=== PATIENT | female | born 1965 | race Caucasian/White ===

== ENCOUNTER 2019-11-30 11:52 | Outpatient (CLI) | payer MEDICARE, SELFPAY ==
--- NOTE | ~2019-11-30 | XR_ITS ---
EXAMINATION:XR_CERV2-3V_CR DATE: 11/30/2019 12:23 INDICATION: Neck pain TECHNIQUE: AP, lateral, lateral swimmers and odontoid views of the cervical spine are provided. COMPARISON: None FINDINGS: Alignment is normal. The odontoid is intact. No fracture is identified. The vertebral body heights are maintained. There is mild loss of intervertebral disc space height throughout the cervica l spine. Small degenerative osteophytes project from the anterior endplates of multiple vertebral bod ies. Moderate facet and uncovertebral joint osteoarthritis is noted at C5-6. Prevertebral soft tissue s are normal. IMPRESSION: 1. Mild cervical spondylosis without acute findings. Reviewed, dictated and finalized at location A.
== END 2019-11-30 11:53 | disposition home or self-care (01) ==
PROVIDERS: PCP Emergency Medicine; Visit Provider Physician Assistant
DX: M47.892 Other spondylosis, cervical region (principal)
CPT/HCPCS: 72040

== ENCOUNTER 2020-02-19 10:25 | Outpatient (CLI) | payer MEDICARE, SELFPAY ==
--- NOTE | ~2020-02-19 | US_ITS ---
EXAMINATION: US retroperitoneal duplex ltd EXAM DATE: 02/19/2020 11:49 INDICATION: Stage III chronic kidney disease. TECHNIQUE: Multiple grayscale and Doppler images of the kidneys and renal arteries were obtained. T here is no prior study for comparison. FINDINGS: The aorta peak systolic velocity is 264 cm/s. The right renal artery peak systolic velocity is 88 cm/ s in the proximal segment, 96 cm/s in the mid segment, and 71 cm/s in the distal segment. The left re nal artery peak systolic velocity is 45 cm/s in the proximal segment, 70 cm/s in the mid segment, and 82 cm/s in the distal segment. No hydronephrosis. IMPRESSION: 1. Renal artery Doppler velocities within normal limits. Reviewed, dictated and finalized at location B.
== END 2020-02-19 10:26 | disposition home or self-care (01) ==
LOC: ANHIMG 10:27
PROVIDERS: PCP Emergency Medicine; Visit Provider Internal Medicine Nephrology
DX: N18.3 Chronic kidney disease, stage 3 (moderate) (principal); N26.1 Atrophy of kidney (terminal)
CPT/HCPCS: 93976

== ENCOUNTER 2020-05-10 14:11 | Outpatient (CLI) | payer MEDICARE, SELFPAY ==
--- NOTE | ~2020-05-10 | CT_ITS ---
EXAMINATION:CT lung screening DATE: 05/10/2020 14:31 INDICATION: Personal history of tobacco dependence. Current smoker with 80 pack year history. TECHNIQUE: Computed tomography (CT) of the chest was performed without intravenous contrast. Automate d exposure control and iterative reconstruction technique were employed. The dose-length product (DLP ) was 347.65 mGy-cm. COMPARISON: Chest CT 04/13/2019 FINDINGS: There is mild emphysema. There is a 3 mm nodule at left major fissure without change. No pl eural effusion. There is an aberrant right subclavian artery. The heart size is normal. There are cor onary artery calcifications. No pericardial effusion. There is mild thoracic spondylosis. IMPRESSION: 1. Lung-RADS category 2: Benign appearance or behavior. Continue annual screening with noncontrast lo w-dose chest CT in 12 months. Reviewed, dictated and finalized at location A. [place] SUPPORT SPECIALIST IMPRESSION: 1. Lung-RADS category 2: Benign appearance or behavior. Continue annual screeni ng with noncontrast low-dose chest CT in 12 months.
== END 2020-05-10 14:12 | disposition home or self-care (01) ==
PROVIDERS: PCP Emergency Medicine; Visit Provider Nurse Practitioner Family
DX: Z12.2 Encounter for screening for malignant neoplasm of respiratory organs (principal); Z87.891 Personal history of nicotine dependence
CPT/HCPCS: G0297

== ENCOUNTER 2020-12-09 12:53 | Outpatient (CLI) | payer MEDICARE, SELFPAY ==
--- NOTE | ~2020-12-09 | XR_ITS ---
EXAMINATION: XR shoulder RT min 2V DATE: 12/09/2020 13:32 INDICATION: Right shoulder pain. TECHNIQUE: 4 views of right shoulder were obtained. COMPARISON: None. FINDINGS: Bone alignment is normal. No fracture. Joint spaces are well maintained. IMPRESSION: 1. Normal right shoulder. Reviewed, dictated and finalized at location A. IMPRESSION: 1. Normal right shoulder.
== END 2020-12-09 12:54 | disposition home or self-care (01) ==
PROVIDERS: PCP Emergency Medicine; Visit Provider Orthopaedic Surgery Sports Medicine
DX: M25.511 Pain in right shoulder (principal)
CPT/HCPCS: 73030

== ENCOUNTER 2021-01-02 15:49 | Outpatient (CLI) | payer MEDICARE, SELFPAY ==
--- NOTE | ~2021-01-02 | MR_ITS ---
EXAMINATION: MR shoulder RT wo con DATE: 01/02/2021 16:28 INDICATION: Right shoulder pain. TECHNIQUE: Magnetic resonance imaging (MRI) of the right shoulder was performed without intravenous c ontrast. Sequences included axial PD-weighted FS FSE, coronal oblique PD-weighted FS FSE and T2-weigh ronnie FS FSE, and sagittal oblique T2-weighted FS FSE and T1-weighted FSE. COMPARISON: Right shoulder radiographs 12/09/20 FINDINGS: Coracoacromial arch: The acromion undersurface is curved in morphology (type II). There is mild acromioclavicular joint os teoarthritis. There is moderate subacromial/subdeltoid bursitis. Rotator cuff: There is a full-thickness tear of anterior supraspinatus tendon and articular-sided partial-thickness tear of posterior supraspinatus tendon and infraspinatus tendon. The full-thickness tear measures 4 mm anterior to posterior by 2.0 cm proximal to distal. The partial-thickness tear measures 1.9 cm ant erior to posterior, 2.0 cm proximal to distal, and up to 80% tendon thickness. Teres minor tendon is normal. There is mild subscapularis tendinopathy. There is no asymmetric fatty atrophy of the rotator cuff muscle bellies. Biceps tendon and glenoid labrum: There is a complete tear of proximal biceps tendon. There is degeneration of glenoid labrum without w ell-defined tear. Fluid: There is no glenohumeral joint effusion. Bones/cartilage: There is deep partial thickness cartilage loss of central glenoid. There is partial-thickness cartila ge loss of humeral head. IMPRESSION: 1. Full-thickness rotator cuff tear. 2. Complete tear of proximal biceps tendon. 3. Moderate glenohumeral joint chondrosis. 4. Mild acromioclavicular joint osteoarthritis. 5. Moderate subacromial/subdeltoid bursitis. Reviewed, dictated and finalized at location A.
== END 2021-01-02 15:50 | disposition home or self-care (01) ==
PROVIDERS: PCP Emergency Medicine; Visit Provider Orthopaedic Surgery Sports Medicine
DX: M19.011 Primary osteoarthritis, right shoulder (principal); M75.51 Bursitis of right shoulder; S46.211A Strain of muscle, fascia and tendon of other parts of biceps, right arm, initial encounter; X58.XXXA Exposure to other specified factors, initial encounter; M75.101 Unspecified rotator cuff tear or rupture of right shoulder, not specified as traumatic
CPT/HCPCS: 73221

== ENCOUNTER 2021-01-15 09:56 | Outpatient (CLI) | payer MEDICARE, SELFPAY ==
--- NOTE | ~2021-01-15 | MR_ITS ---
EXAMINATION: MR cervical spine wo con EXAM DATE: 01/15/2021 10:47 INDICATION: Cervicalgia . TECHNIQUE: Multi-sequential, multiplanar MR images of the cervical spine were obtained without contra st. Axial T2, axial T2 MERGE sequence. Sagittal T1, T2, T2 fat saturation images also obtained. Th ere is no prior study for comparison. FINDINGS: The vertebral bodies are aligned in the AP dimension. Vertebral body and disc heights are well-maintained. There are no suspicious marrow signal abnormalities. The spinal cord signal intensit y and intrinsic morphology is normal. Cervicomedullary junction is normal in appearance. Paraspinal s oft tissue is unremarkable. Level by level evaluation: C2-C3: Disc does not extend beyond the endplate margin. Uncovertebral joint arthropathy: None. Facet joint arthropathy: Mild bilateral. Neural foraminal stenosis: No stenosis. Central canal stenosis: No stenosis. C3-C4: There is a mild diffuse disc bulge. Uncovertebral joint arthropathy: Mild bilateral. Facet joint arthropathy: Mild to moderate bilateral. Neural foraminal stenosis: Mild to moderate right, mild left. Central canal stenosis: No stenosis. C4-C5: Disc does not extend beyond the endplate margin. Uncovertebral joint arthropathy: Minimal bilateral. Facet joint arthropathy: Mild to moderate left, mild right. Neural foraminal stenosis: No stenosis. Central canal stenosis: No stenosis. C5-C6: Disc does not extend beyond the endplate margin. Uncovertebral joint arthropathy: Minimal bilateral. Facet joint arthropathy: Mild bilateral. Neural foraminal stenosis: No stenosis. Central canal stenosis: No stenosis. C6-C7: There is a mild diffuse disc bulge. Uncovertebral joint arthropathy: Mild to moderate bilateral. Facet joint arthropathy: Minimal bilateral. Neural foraminal stenosis: No stenosis. Central canal stenosis: Minimal. C7-T1: Disc does not extend beyond the endplate margin. Uncovertebral joint arthropathy: Mild bilateral. Facet joint arthropathy: Mild bilateral. Neural foraminal stenosis: No stenosis. Central canal stenosis: No stenosis. IMPRESSION: 1. Mild cervical spondylosis. Reviewed, dictated and finalized at location A.
== END 2021-01-15 09:57 | disposition home or self-care (01) ==
PROVIDERS: PCP Emergency Medicine; Visit Provider Orthopaedic Surgery Sports Medicine
DX: M54.2 Cervicalgia (principal); M47.892 Other spondylosis, cervical region
CPT/HCPCS: 72141

== ENCOUNTER 2021-02-18 12:57 | Outpatient (CLI) | payer MEDICARE, SELFPAY ==
--- NOTE | ~2021-02-18 | XR_ITS ---
EXAMINATION: XR shoulder LT min 2V DATE: 02/18/2021 13:32 INDICATION: Left shoulder pain TECHNIQUE: AP internally and externally rotated, AP oblique externally rotated and transscapular Y vi ews of the left shoulder were obtained. COMPARISON: None FINDINGS: Normal alignment. No fracture. Glenohumeral joint is normal. Acromioclavicular joint is normal. Soft tissues are unremarkable. Visualized portions of the lungs are clear. IMPRESSION: Negative left shoulder radiographs. Reviewed, dictated and finalized at location A.
== END 2021-02-18 12:58 | disposition home or self-care (01) ==
PROVIDERS: PCP Emergency Medicine; Visit Provider Orthopaedic Surgery Sports Medicine
DX: M25.512 Pain in left shoulder (principal)
CPT/HCPCS: 73030

== ENCOUNTER 2021-02-28 13:38 | Outpatient (CLI) | payer MEDICARE, SELFPAY ==
--- NOTE | ~2021-02-28 | MR_ITS ---
EXAMINATION: MR shoulder LT wo con DATE: 02/28/2021 14:44 INDICATION: Left shoulder pain TECHNIQUE: Magnetic resonance imaging (MRI) of the left shoulder was performed without intravenous co ntrast. Sequences included axial PD-weighted FS FSE, coronal oblique PD-weighted FS FSE, coronal obli que T2-weighted FS FSE, sagittal PD-weighted FS FSE, and sagittal T1-weighted SE. COMPARISON: None. FINDINGS: Coracoacromial arch: The acromion undersurface is curved in morphology (type II). The coracoacromial ligament is normal. M inimal acromioclavicular osteoarthritis. Rotator cuff: Mild supraspinatus tendinopathy with small intrasubstance likely delaminating split tear at the conjo ined portion of the supraspinatus and infraspinatus tendons which measures 3 mm AP, 5 mm medial. The teres minor and subscapularis tendons are normal. Normal rotator cuff muscle bulk and signal. Biceps tendon, glenoid labrum and glenohumeral cartilage: Long head of the biceps tendon is normal. Small tear at the 10:30-11:30 position of the posterior sup erior glenoid labrum. Glenohumeral cartilage is normal. Fluid: Physiologic amount of fluid in the glenohumeral joint and biceps tendon sheath. No loose osteochondra l bodies. Minimal fluid in the subacromial/subdeltoid bursa consistent with mild bursitis. Bones: Normal marrow signal with no edema, fracture or abnormal marrow replacing process. IMPRESSION: 1. Mild supraspinatus tendinopathy with very small mild intrasubstance delaminating split tear at the distal conjoined portion of the supraspinatus and infraspinatus tendons. 2. Superior, anterior to posterior tear of the glenoid labrum (SLAP tear) at the 10:30-11:30 position of the posterior superior glenoid labrum. 3. Mild subacromial/subdeltoid bursitis. Reviewed, dictated and finalized at location B. IMPRESSION: 1. Mild supraspinatus tendinopathy with very small mild intrasubstance delamina ting split tear at the distal conjoined portion of the supraspinatus and infras pinatus tendons. 2. Superior, anterior to posterior tear of the glenoid labrum (SLAP tear) at th e 10:30-11:30 position of the posterior superior glenoid labrum. 3. Mild subacromial/subdeltoid bursitis.
== END 2021-02-28 13:39 | disposition home or self-care (01) ==
LOC: ANHIMG 13:43
PROVIDERS: PCP Emergency Medicine; Visit Provider Orthopaedic Surgery Sports Medicine
DX: M75.52 Bursitis of left shoulder (principal); S43.432A Superior glenoid labrum lesion of left shoulder, initial encounter; X58.XXXA Exposure to other specified factors, initial encounter
CPT/HCPCS: 73221

== ENCOUNTER 2021-04-07 07:56 | Outpatient (CLI) | payer MEDICARE, SELFPAY ==
--- NOTE | 2021-04-14 10:30 | WPDPFTINT ---
PFT Procedure Performed PFT Procedure Performed Spirometry with Pre/Post Bronchodilator Plethysmography (Lung Vol) Diffusing Cap (DLCO) Flow Vol Loop PFT Interpretation Lung volumes were measured with the body plethysmography method. The lung volumes are unremarkable except a diminished expiratory reserve volume, which is related to morbid obesity. Spirometry showed normal expiratory flow rates, normal FEV1 to FVC ratio of 73% and diminished mid expiratory flow rates of 48%. Following administration of a bronchodilator there was no significant increase in the expiratory flow rates. Lung diffusion capacity is moderately reduced at 47% predicted. In comparison to previous study done in February of 2018, the post bronchodilator FVC is now lower by approximately 0.4 L and the post bronchodilator FEV1 is also lower by approximately 0.4 L whereas the lung diffusion capacity is essentially unchanged. The flow volume loop is unremarkable. Impression: Probable small airway disease. Diminished expiratory reserve volume due to obesity.
== END 2021-04-07 07:57 | disposition home or self-care (01) ==
PROVIDERS: PCP Emergency Medicine; Visit Provider Nurse Practitioner Family
DX: J44.9 Chronic obstructive pulmonary disease, unspecified (principal)
CPT/HCPCS: 94060; 94726; 94729

== ENCOUNTER 2021-08-29 08:00 | Outpatient (CLI) | payer MEDICARE, SELFPAY ==
--- NOTE | ~2021-08-29 | CT_ITS ---
EXAMINATION: CT lung screening DATE: 08/29/2021 08:42 INDICATION: Personal history of nicotine dependence TECHNIQUE: Computed tomography (CT) of the chest was performed without intravenous contrast. The dose -length product was 363.99 mGy-cm. Automated exposure control and iterative reconstruction technique were employed. COMPARISON: CT dated 05/10/2020 FINDINGS: There is a new 5 mm right middle lobe nodule, image 72 there is a 2 mm right upper lobe nod ule. There is slight enlargement of a 5 mm left major fissural nodule. No focal airspace consolidatio n. No endobronchial lesions. No pneumothorax. Heart size normal. No significant pleural or pericardia l effusion. No thoracic lymphadenopathy. Upper abdomen is unremarkable. IMPRESSION: 1. Lung-RADS category 3: Probably benign. Further evaluation is recommended with noncontrast low-dose chest CT in 6 months. Reviewed, dictated and finalized at location B. NING GENERALIST IMPRESSION: 1. Lung-RADS category 3: Probably benign. Further evaluation is recommended wit h noncontrast low-dose chest CT in 6 months.
== END 2021-08-29 08:01 | disposition home or self-care (01) ==
LOC: ANHIMG 08:05
PROVIDERS: PCP Emergency Medicine; Visit Provider Nurse Practitioner Family
DX: Z87.891 Personal history of nicotine dependence (principal); R91.8 Other nonspecific abnormal finding of lung field
CPT/HCPCS: 71271; 73562

== ENCOUNTER 2021-08-29 08:09 | Outpatient (CLI) | payer MEDICARE, SELFPAY ==
--- NOTE | ~2021-08-29 | XR_ITS ---
EXAMINATION: XR knee LT 3V DATE: 08/29/2021 08:56 INDICATION: Chronic left knee pain TECHNIQUE: Weight bearing anteroposterior, sunrise, and flexed lateral views of the left knee were ob tained COMPARISON: None. FINDINGS: Alignment is normal. No fracture. Mild to moderate joint space narrowing the medial compartment. Sma ll marginal osteophytes at the lateral compartment. Tiny patellar marginal osteophytes. Enthesophytes and couple small enthesopathic ossicles at the tibial insertion of the distal patellar tendon. No judah int effusion. Soft tissues are unremarkable. IMPRESSION: 1. Tricompartmental osteoarthritis at the left knee, with medial compartment predominance where it is of mild to moderate severity. Reviewed, dictated and finalized at location A. 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 Tricompartmental osteoarthritis at the left knee, with medial compartment pr edominance where it is of mild to moderate severity.
== END 2021-08-29 08:10 | disposition home or self-care (01) ==
PROVIDERS: PCP Emergency Medicine; Visit Provider Physician Assistant
DX: M17.12 Unilateral primary osteoarthritis, left knee (principal)
CPT/HCPCS: 73562

== ENCOUNTER 2021-10-25 17:48 | Observation (INO) | payer MEDICARE, SELFPAY ==
[2021-10-25] VITALS (8 sets, daily range): BP systolic 106–148; BP diastolic 41–69; PULSE 67–88; RESP 17–24; TEMP 36.1–36.6; O2SAT 89–95; BMI 46.7
--- NOTE | ~2021-10-25 | XR_ITS ---
EXAMINATION: XR chest 2V Exam Date/Time: 10/25/2021 18:25 CDT CLINICAL HISTORY: sob Comparison: 05/30/2019. RESULT: Lines, tubes, and devices: None. Lungs and pleura: Clear. Cardiomediastinal silhouette: Stable cardiomediastinal silhouette. Other: No acute osseous or upper abdominal finding. IMPRESSION: No acute cardiopulmonary process Reviewed, dictated and finalized at location K.
--- NOTE | 2021-10-25 17:54 | ECG_ITS ---
Measurements Intervals [place] Rate: 68 P: 34 MI: 156 QRS: 1 QRSD: 88 T: 39 QT: 375 QTc: 401 Interpretive Statements SINUS RHYTHM LOW QRS VOLTAGE IN PRECORDIAL LEADS [QRS DEFLECTION < 1.0 mV IN CHEST LEADS] NO PREVIOUS ECG AVAILABLE FOR COMPARISON Electronically Signed On 10-26-2021 8:01:50 CDT by Rell Bunch M.D.
[2021-10-25 18:11] LABS: Basophils Percent Auto 0.3 % (0.2-1.2); Hematocrit 45.3 % (37.0-47.0); Hemoglobin 14.4 g/dL (12.0-15.0); Immature Granulocyte Absolute 0.16 K/mm3 (0.00-0.031); Immature Granulocyte Percent A 1.2 % (0-0.5); Lymphocytes Absolute Auto 0.73 K/mm3 (0.9-3.2); Lymphocytes Percent Auto 5.6 % (18.3-44.2); Mean Corpuscular HGB Conc 31.8 g/dl (32-36); Mean Corpuscular Volume 91.3 fl (80-100); Monocytes Absolute Auto 0.5 K/mm3 (0.1-0.6); Monocytes Percent Auto 3.5 % (2.6-8.5); Neutrophils Absolute Auto 11.7 K/mm3 (1.3-6.7); Neutrophils Percent Auto 89.4 % (45.5-73.1); Platelet Count Result 315 k/mm3 (150-375); Red Blood Count 4.96 M/mm3 (4.2-5.4); Red Cell Distribution Width 13.9 % (11.5-14.5); White Blood Count 13.1 K/mm3 (4.5-10.0)
[2021-10-25 18:21] LABS: Alanine Aminotransferase 11 U/L (4-35); Alkaline Phosphatase 99 U/L (38-126); Anion Gap 4 mmol/L (8-16); Aspartate Amino Transferase 20 U/L (14-36); Bilirubin,Total 0.2 mg/dL (0.2-1.3); Blood Urea Nitrogen 18 mg/dL (7-17); Calcium 8.9 mg/dL (8.4-10.2); Carbon Dioxide 27 mmol/L (22-30); Chloride 110 mmol/L (98-107); Estimated CRCL calculation 9 ml/min; Estimated Glomerular Filt Rate 46; Glucose 127 mg/dL (65-110); Potassium 4.2 mmol/L (3.4-5.0); Sodium 141 mmol/L (137-145)
[2021-10-25] MEDS: ALBUTEROL SULFATE NEB 2.5 MG/0.5 ML INH 15 MG INHALATION (18:38)
[2021-10-25] MEDS: IPRATROPIUM BR 0.02% INH SOLN 0.5 MG/2.5 ML VIAL 1.5 MG INHALATION (18:38)
--- NOTE | 2021-10-25 20:30 | ED.SOB ---
HPI - SOB/Dyspnea General Chief Complaint: Shortness of Breath/Dyspnea Stated Complaint: SOB, OXYGEN IN 80'S Time Seen by Provider: 10/25/21 18:01 History of Present Illness HPI Narrative: Patient is a 56-year-old female with history of COPD who presents ER with shortness of breath. Patient reports approximately 9 days ago she began having sinus congestion with sore throat and cough. It progressed and contacted her she checked her pulse oximeter yesterday and it showed she was in the high 80s. She does wear oxygen at night but does not require it during the day. She cannot walk further than 15 feet without becoming extremely dyspneic. Re [facility]. They recommended that she start doxycycline and prednisone 20 mg twice daily. She has been compliant with these medications. She has not been using any nebulizer treatments or inhalers. Related Data Home Medications Medication Instructions Recorded Confirmed Vitamin B-12 500 mg DAILY 05/07/19 04/08/21 Vitamin D3 50,000 wk 05/07/19 04/08/21 carisoprodol 350 mg PO TID PRN 05/07/19 04/08/21 cyclosporine [Restasis] 1 drp OPHTHALMIC (EYE) Q12H 05/07/19 04/08/21 escitalopram oxalate [Lexapro] 20 mg PO DAILY 05/07/19 04/08/21 fluocinonide [Vanos] 1 applic TOPICAL BID 05/07/19 04/08/21 fluticasone furoate-vilanterol 05/07/19 04/08/21 fluticasone propionate [Flonase 1 spray INTRANASAL Q12H 05/07/19 04/08/21 Allergy Relief] hydrocodone-acetaminophen 1 tablet PO Q4H PRN 05/07/19 04/08/21 hydroxychloroquine [Plaquenil] 200 mg PO BID 05/07/19 04/08/21 lisinopril 20 mg PO DAILY 05/07/19 04/08/21 omeprazole 10 mg PO DAILY 05/07/19 04/08/21 pregabalin [Lyrica] 50 mg PO BID 05/07/19 04/08/21 quetiapine [Seroquel] 200 mg PO HS 05/07/19 04/08/21 rosuvastatin 10 mg PO DAILY 05/07/19 04/08/21 mycophenolate mofetil 500 mg tablet 1.5 gm PO Q12H tablet 11/30/19 04/08/21 Allergies Allergy/AdvReac Type Severity Reaction Status Date / Time bupropion Allergy Unknown HIVES Verified 10/25/21 17:51 Review of Systems Review of Systems: All systems reviewed & are unremarkable except as noted in HPI and below Constitutional: Constitutional: Denies chills, Denies fever(s) and Denies weakness ENT: Reports nasal congestion and Reports sore throat Cardiovascular: Cardiovascular: Denies chest pain, Denies rapid heart rate and Denies radiating jaw, neck or arm pain Respiratory: Respiratory: Reports cough, Reports dyspnea and Reports wheezing Gastrointestinal: Gastrointestinal: Denies abdominal pain, Denies nausea and Denies vomiting Musculoskeletal: Musculoskeletal: Denies back pain and Denies muscle cramps Neurologic: Denies headache(s), Denies focal weakness and Denies numbness PMFSH Past Medical History Medical History Allergic rhinitis, unspecified Body mass index (BMI) 45.0-49.9, adult Chronic obstructive pulmonary disease Nocturnal hypoxemia SOB (shortness of breath) Systemic lupus erythematosus Tobacco abuse Surgical History Surgical History History of arthroscopy of knee History of carpal tunnel release History of section History of D&C History of hernia repair History of hysterectomy History of knee replacement History of repair of rotator cuff History of tonsillectomy Family History Family History Father Family history of emphysema, Onset Age: 55 Mother , sepsis Sepsis Social History Social History Smoking packs per day: 2 Smoking cigarettes per day: 40.0 Smoking status: Current every day smoker Tobacco type: cigarettes Exam Narrative: GENERAL: Well-appearing, well-nourished, and in no acute distress. HEAD: Normocephalic, atraumatic. ENT: Mucous membranes moist. CHEST: Inspiratory and expi
--- NOTE | 2021-10-25 20:49 | PM.IMHP ---
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 were she was given doxycycline and prednisone without improvement at the ER patient was found to have hypoxia acute COPD exacerbation leukocytosis admitted for further evaluation and treatment as patient failed outpatient therapy Review of Systems Review of Systems: Twelve system review was done negative except mentioned in HPI PMFSH Past Medical History Medical History Allergic rhinitis, unspecified Body mass index (BMI) 45.0-49.9, adult Chronic obstructive pulmonary disease Nocturnal hypoxemia SOB (shortness of breath) Systemic lupus erythematosus Tobacco abuse Surgical History Surgical History History of arthroscopy of knee History of carpal tunnel release History of section History of D&C History of hernia repair History of hysterectomy History of knee replacement History of repair of rotator cuff History of tonsillectomy Family History Family History Father Family history of emphysema, Onset Age: 55 Mother , sepsis Sepsis Social History Social History Smoking packs per day: 2 Smoking cigarettes per day: 40.0 Smoking status: Current every day smoker Tobacco type: cigarettes Meds Home Medications and Allergies Home Medications Medication Instructions Recorded Confirmed Type Vitamin B-12 500 mg DAILY 05/07/19 04/08/21 History Vitamin D3 50,000 wk 05/07/19 04/08/21 History carisoprodol 350 mg PO TID PRN 05/07/19 04/08/21 History cyclosporine [Restasis] 1 drp OPHTHALMIC (EYE) Q12H 05/07/19 04/08/21 History escitalopram oxalate [Lexapro] 20 mg PO DAILY 05/07/19 04/08/21 History fluocinonide [Vanos] 1 applic TOPICAL BID 05/07/19 04/08/21 History fluticasone furoate-vilanterol 05/07/19 04/08/21 History fluticasone propionate [Flonase 1 spray INTRANASAL Q12H 05/07/19 04/08/21 History Allergy Relief] hydrocodone-acetaminophen 1 tablet PO Q4H PRN 05/07/19 04/08/21 History hydroxychloroquine [Plaquenil] 200 mg PO BID 05/07/19 04/08/21 History lisinopril 20 mg PO DAILY 05/07/19 04/08/21 History omeprazole 10 mg PO DAILY 05/07/19 04/08/21 History pregabalin [Lyrica] 50 mg PO BID 05/07/19 04/08/21 History quetiapine [Seroquel] 200 mg PO HS 05/07/19 04/08/21 History rosuvastatin 10 mg PO DAILY 05/07/19 04/08/21 History fluticasone furoate 100 1 inhalation INHALATION DAILY 90 11/30/19 04/08/21 Rx mcg-vilanterol 25 mcg/dose Days #180 each inhalation powder mycophenolate mofetil 500 mg tablet 1.5 gm PO Q12H tablet 11/30/19 04/08/21 History albuterol sulfate 90 mcg/actuation 2 inh INHALATION Q4-6H PRN 90 Days 07/25/20 04/08/21 Rx aerosol inhaler #25.5 gm doxycycline hyclate 100 mg capsule 100 mg PO DAILY 7 Days #7 cap 10/21/21 Rx prednisone 20 mg tablet 40 mg PO DAILY 5 Days #10 tablet 10/21/21 Rx Allergies Allergy/AdvReac Type Severity Reaction Status Date / Time bupropion Allergy Unknown HIVES Verified 10/25/21 17:51 Vital Signs Vital Signs - 24 hr 10/25/21 17:49 10/25/21 18:04 10/25/21 20:06 Temperature 96.9 F L Pulse Rate 82 68 88 Respiratory Rate 22 H 24 H Blood Pressure 148/69 H 107/66 Pulse Oximetry 92 95 Exam Const: General: in distress HENMT: Mouth: Yes moist mucous membranes Eyes: Sclera: sclerae normal Neck: Neck: no JVD Resp: Effort & Inspection: abnormal respiratory effort [facility]
[2021-10-25] MEDS: methylPREDNISolone SOD SUCC 125 MG VIAL IV PUSH (21:12)
[2021-10-25 21:13] LABS: CRP 1.3 mg/dL (<1.0)
[2021-10-25] MEDS: SODIUM CHLORIDE 0.9% IV 1,000 ML 100 ML IV CONT (22:18)
[2021-10-25] MEDS: cefTRIAXone 2 GM in SODIUM CHLORIDE 0.9% IV 100 ML 200 ML IVPB (22:19)
--- NOTE | 2021-10-25 22:20 | ADMGEN ---
This patient, Adwoa Skinner, was admitted to 2 Medical Room 259-01. Patient/family oriented to hospital policies and general routines including ID bracelet, bed and alarms, visiting hours, pain management, procedures, bathroom and other care routines, personal items, smoking policy, room service/diet, and visiting hours. Information on how to activate the Rapid Response Team has been discussed. Patient/Family are encouraged to report perceived risks to care and to ask questions if they do not understand what they are told or what they should do.
[2021-10-26] VITALS (18 sets, daily range): BP systolic 116–137; BP diastolic 47–57; PULSE 58–75; RESP 16–20; TEMP 36.5–37.3; O2SAT 92–97
[2021-10-26] MEDS: IPRATROPIUM BR 0.02% INH SOLN 0.5 MG/2.5 ML VIAL INHALATION ×4 (02:29→20:13)
[2021-10-26] MEDS: ALBUTEROL SULFATE NEB 2.5 MG/0.5 ML INH 5 MG INHALATION ×4 (02:29→20:13)
[2021-10-26] MEDS: methylPREDNISolone SOD SUCC 125 MG VIAL 60 MG IV PUSH (05:07)
[2021-10-26 06:25] LABS: Basophils Percent Auto 0.2 % (0.2-1.2); Hematocrit 38.1 % (37.0-47.0); Hemoglobin 12.6 g/dL (12.0-15.0); Immature Granulocyte Absolute 0.13 K/mm3 (0.00-0.031); Lymphocytes Absolute Auto 0.52 K/mm3 (0.9-3.2); Mean Corpuscular HGB Conc 33.1 g/dl (32-36); Mean Corpuscular Hemoglobin 29.5 pg (26-34); Mean Corpuscular Volume 89.2 fl (80-100); Mean Platelet Volume 10.2 fl (7.4-10.4); Monocytes Absolute Auto 0.2 K/mm3 (0.1-0.6); Monocytes Percent Auto 1.2 % (2.6-8.5); Neutrophils Absolute Auto 12.1 K/mm3 (1.3-6.7); Neutrophils Percent Auto 93.6 % (45.5-73.1); Platelet Count Result 260 k/mm3 (150-375); Red Blood Count 4.27 M/mm3 (4.2-5.4); Red Cell Distribution Width 13.8 % (11.5-14.5); White Blood Count 12.9 K/mm3 (4.5-10.0)
[2021-10-26 06:39] LABS: Alanine Aminotransferase 12 U/L (4-35); Albumin Level 3.6 g/dL (3.5-5.1); Alkaline Phosphatase 86 U/L (38-126); Anion Gap 6 mmol/L (8-16); Aspartate Amino Transferase 18 U/L (14-36); Bilirubin,Total < 0.1 mg/dL (0.2-1.3); Blood Urea Nitrogen 17 mg/dL (7-17); Calcium 8.2 mg/dL (8.4-10.2); Carbon Dioxide 20 mmol/L (22-30); Chloride 110 mmol/L (98-107); Estimated CRCL calculation 58 ml/min; Estimated Glomerular Filt Rate 51; Glucose 159 mg/dL (65-110); Sodium 136 mmol/L (137-145)
[2021-10-26] MEDS: SODIUM CHLORIDE 0.9% IV 1,000 ML 100 ML IV CONT ×2 (07:52→16:53)
[2021-10-26] MEDS: lisinopriL 20 MG TABLET PO (09:20)
[2021-10-26] MEDS: ESCITALOPRAM OXALATE 10 MG TABLET 20 MG PO (09:20)
[2021-10-26] MEDS: PANTOPRAZOLE SOD SESQUIHYDRATE 20 MG TAB PO (09:20)
[2021-10-26] MEDS: ROSUVASTATIN 10 MG TABLET PO (09:20)
[2021-10-26] MEDS: CYANOCOBALAMIN 500 MCG TABLET BY MOUTH (09:20)
[2021-10-26] MEDS: PREGABALIN (*CRX) 50 MG CAPSULE PO ×2 (09:20→16:52)
[2021-10-26] MEDS: mycophenolate mofetiL 250 MG CAPSULE 1500 MG PO ×2 (09:21→20:24)
[2021-10-26] MEDS: HYDROXYCHLOROQUINE SULFATE 200 MG TABLET PO ×2 (09:21→16:53)
[2021-10-26] MEDS: FLUTICASONE PROPIONATE 0.05% NA SPR 16 GM BTL (*BKC) 1 SPRAY NASAL ×2 (09:22→20:24)
[2021-10-26] MEDS: ERGOCALCIFEROL 50,000 UNIT CAPSULE 50000 UNITS PO (09:22)
--- NOTE | 2021-10-26 09:56 | PM.IMPN ---
Progress Note: A&P Assessment and Plan (1) Systemic lupus erythematosus: Qualifiers: Systemic lupus erythematosus type: unspecified Systemic lupus erythematosus organ involvement: unspecified Qualified Code(s): M32.9 - Systemic lupus erythematosus, unspecified Code(s): M32.9 - Systemic lupus erythematosus, unspecified Status: Acute Assessment and Plan: Pending medication reconciliation Stable Will resume home medication once confirmed (2) COPD exacerbation: Code(s): J44.1 - Chronic obstructive pulmonary disease with (acute) exacerbation Status: Acute Assessment and Plan: Failed outpatient therapy Reviewed chest x-ray evidence of pneumonia Will give IV Rocephin IV steroid nebulizer treatment Follow-up blood culture sputum culture respiratory virus panel including COVID-19 ordered (3) Acute hypoxemic respiratory failure: Code(s): J96.01 - Acute respiratory failure with hypoxia Status: Acute Assessment and Plan: Secondary to COPD exacerbation continue nebulizer treatment IV steroid IV antibiotics oxygen (4) Leukocytosis: Code(s): D72.829 - Elevated white blood cell count, unspecified Status: Acute Assessment and Plan: Probably reactive Follow-up blood culture sputum culture (5) Body mass index (BMI) 45.0-49.9, adult: Code(s): Z68.42 - Body mass index [BMI] 45.0-49.9, adult Status: Acute Assessment and Plan: Diet and exercise Subjective Date/time seen: 10/26/21 09:56 Patient is alert and oriented x4. She denies any acute respiratory symptoms today. She denies any dyspnea with exertion. Will order home oxygen evaluation for 10/27/2021. Patient continues to receive IV antibiotics and neb treatments. Patient will follow-up with her manager msw this week. No acute concerns reported by RN during the night. Patient denies any chest pain, shortness breast, nausea, vomiting and stomach or diarrhea. Review of Systems Review of Systems: All systems reviewed & are unremarkable except as noted in HPI and below Exam Narrative: General: No acute distress. Mental Status: Awake, alert and oriented to person, place, and time with clear speech. Skin: Skin in warm, dry and intact without rashes or lesions. Head: Normocephalic and atraumatic. Eyes: Conjunctivae are clear without exudates or hemorrhage. Sclera is non-icteric. EOM are intact, PERRLA. Ears: The external ear and canal are non-tender and without swelling or discharge. Nose: Nasal mucosa is pink and moist. Septum midline. Nares patent bilaterally. Throat: Oral mucosa pink and moist with good dentition. Tongue midline. Neck: The neck supple without adenopathy. Trachea midline. No JVD. Cardiac: S1 and S2 regular rate and rhythm. No murmurs, gallops, or rubs auscultated. Respiratory: Chest wall symmetric, nontender and without deformity or trauma. Respirations even and unlabored. Lung sounds are inspiratory and expiratory wheezes throughout, mild rhonchi auscultated to the right mid lobe. Abdominal: Abdomen soft, round and non-tender to palpation. Bowel sounds present and normoactive in all 4 quadrants. Spine: Neck and back with grossly normal curvature, no deformity in appearance or signs of trauma. Extremities: Upper and lower extremities atraumatic without tenderness or deformity. Full range of motion and muscle strength 5/5 to all extremities bilaterally. Neurological: Full and symmetric motor and light touch sensation bilaterally. Cranial nerves II-XII grossly intact. Objective Data Vital Signs Vital Signs: Vital Signs - 24 hr 10/25/21 17:49 10/25/21 18:04 10/25/21 20:06 Temperature 96.9 F L Pulse Rate 82 68 88 Respiratory Rate 22 H 24 H Blood Pressure 148/69 H 107/66 Pulse Oximetry 92 95 10/25/21 21:33 10/25/21 21:43 10/25/21 21:59 Temperature Pulse Rate 82 77 Respiratory Rate 18 17 Blood Pressure 106/53 L Pulse Oximetry 92 91 94 0
[2021-10-26 10:03] LABS: Hemoglobin A1C 5.5 % (<5.7)
[2021-10-26] MEDS: methylPREDNISolone SOD SUCC 40 MG VIAL IV PUSH (16:53)
[2021-10-26] MEDS: FLUTICASONE/SALMETEROL 115-21 MCG INHALER 1 PUFF 2 PUFF INHALATION (20:13)
[2021-10-26] MEDS: cefTRIAXone 2 GM in SODIUM CHLORIDE 0.9% IV 100 ML 200 ML IVPB (20:24)
[2021-10-26] MEDS: QUEtiapine FUMARATE 100 MG TABLET PO (20:24)
[2021-10-27] VITALS (18 sets, daily range): BP systolic 115–131; BP diastolic 52–80; PULSE 66–102; RESP 12–18; TEMP 36.3–36.6; O2SAT 87–97
[2021-10-27] MEDS: ALBUTEROL SULFATE NEB 2.5 MG/0.5 ML INH 5 MG INHALATION ×4 (02:00→19:36)
[2021-10-27] MEDS: IPRATROPIUM BR 0.02% INH SOLN 0.5 MG/2.5 ML VIAL INHALATION ×4 (02:00→19:36)
[2021-10-27] MEDS: SODIUM CHLORIDE 0.9% IV 1,000 ML 100 ML IV CONT ×3 (02:14→21:58)
[2021-10-27] MEDS: methylPREDNISolone SOD SUCC 40 MG VIAL IV PUSH ×2 (05:32→16:33)
[2021-10-27 05:52] LABS: Basophils Percent Auto 0.1 % (0.2-1.2); Hematocrit 38.3 % (37.0-47.0); Immature Granulocyte Absolute 0.16 K/mm3 (0.00-0.031); Immature Granulocyte Percent A 1.2 % (0-0.5); Lymphocytes Percent Auto 8.2 % (18.3-44.2); Mean Corpuscular HGB Conc 31.3 g/dl (32-36); Mean Corpuscular Hemoglobin 29.1 pg (26-34); Mean Corpuscular Volume 92.7 fl (80-100); Mean Platelet Volume 9.9 fl (7.4-10.4); Monocytes Absolute Auto 1.1 K/mm3 (0.1-0.6); Monocytes Percent Auto 8.1 % (2.6-8.5); Neutrophils Absolute Auto 11.1 K/mm3 (1.3-6.7); Neutrophils Percent Auto 82.4 % (45.5-73.1); Platelet Count Result 236 k/mm3 (150-375); Red Blood Count 4.13 M/mm3 (4.2-5.4); Red Cell Distribution Width 14.2 % (11.5-14.5); White Blood Count 13.4 K/mm3 (4.5-10.0)
[2021-10-27 06:06] LABS: Alanine Aminotransferase 12 U/L (4-35); Alkaline Phosphatase 76 U/L (38-126); Anion Gap 6 mmol/L (8-16); Aspartate Amino Transferase 24 U/L (14-36); Bilirubin,Total < 0.1 mg/dL (0.2-1.3); Blood Urea Nitrogen 15 mg/dL (7-17); Calcium 8.3 mg/dL (8.4-10.2); Carbon Dioxide 23 mmol/L (22-30); Chloride 113 mmol/L (98-107); Estimated CRCL calculation 58 ml/min; Estimated Glomerular Filt Rate 51; Glucose 104 mg/dL (65-110); Potassium 3.9 mmol/L (3.4-5.0); Sodium 142 mmol/L (137-145)
[2021-10-27] MEDS: ESCITALOPRAM OXALATE 10 MG TABLET 20 MG PO (08:08)
[2021-10-27] MEDS: ROSUVASTATIN 10 MG TABLET PO (08:08)
[2021-10-27] MEDS: CYANOCOBALAMIN 500 MCG TABLET BY MOUTH (08:08)
[2021-10-27] MEDS: HYDROXYCHLOROQUINE SULFATE 200 MG TABLET PO ×2 (08:08→16:33)
[2021-10-27] MEDS: PANTOPRAZOLE SOD SESQUIHYDRATE 20 MG TAB PO (08:08)
[2021-10-27] MEDS: FLUTICASONE PROPIONATE 0.05% NA SPR 16 GM BTL (*BKC) 1 SPRAY NASAL ×2 (08:08→20:03)
[2021-10-27] MEDS: lisinopriL 20 MG TABLET PO (08:08)
[2021-10-27] MEDS: PREGABALIN (*CRX) 50 MG CAPSULE PO ×2 (08:08→16:33)
[2021-10-27] MEDS: mycophenolate mofetiL 250 MG CAPSULE 1500 MG PO ×2 (08:09→20:03)
[2021-10-27] MEDS: ENOXAPARIN 40 MG/0.4 ML SYRINGE SUB-Q (08:09)
[2021-10-27] MEDS: FLUTICASONE/SALMETEROL 115-21 MCG INHALER 1 PUFF 2 PUFF INHALATION ×3 (08:20→19:36)
--- NOTE | 2021-10-27 12:25 | HOMEO2EVAL ---
Evaluation was performed at [facility] Home Oxygen Evaluation RC: Home Oxygen (O2) Evaluation Start: 10/27/21 10:08 Freq: ONCE Status: Active Protocol: RPE Activity Type Activity Date Activity User E-Sign Co-Sign Detail Recorded Client Recorded Date Recorded By Document 10/27/21 11:45 KRM [id number] 10/27/21 12:25 KRM Document 10/27/21 11:47 KRM [id number] 10/27/21 12:25 KRM Document 10/27/21 11:48 KRM [id number] 10/27/21 12:25 KRM Document 10/27/21 11:50 KRM [id number] 10/27/21 12:25 KRM 10/27/21 10/27/21 10/27/21 11:45 11:47 11:48 Home O2 Evaluation Test Phase Resting Exercise Exercise Oxygen Delivery Room Air Room Air Nasal Cannula Oxygen Flow Rate (L/min) 1 Pulse Oximetry (90-100 %) 94 87 L 88 L Pulse Rate (60-100 beats/min) 78 100 102 H Activity Tolerance Good Good Ambulation Distance (feet) Ambulation Distance (meters) Home Oxygen Evaluation Comments Treatment Charges 10/27/21 11:50 Home O2 Evaluation Test Phase Exercise Oxygen Delivery Nasal Cannula Oxygen Flow Rate (L/min) 2 Pulse Oximetry (90-100 %) 91 Pulse Rate (60-100 beats/min) 101 H Activity Tolerance Good Ambulation Distance (feet) 100 Ambulation Distance (meters) 30.47 Home Oxygen Evaluation Comments 2LPM WITH ACTIVITY. Treatment Charges O2 Evaluation - Inpatient
--- NOTE | 2021-10-27 14:12 | ECG_ITS ---
Measurements Intervals [place] Rate: 71 P: 58 WA: 158 QRS: 22 QRSD: 96 T: 29 QT: 380 QTc: 413 Interpretive Statements SINUS RHYTHM NONSPECIFIC T-WAVE ABNORMALITY COMPARED TO ECG 10/25/2021 17:59:42 MILD T-WAVE FLATTENING Electronically Signed On 10-27-2021 16:47:36 CDT by Rell Bunch M.D.
--- NOTE | 2021-10-27 14:12 | PM.IMPN ---
Progress Note: A&P Assessment and Plan (1) Acute hypoxemic respiratory failure: Code(s): J96.01 - Acute respiratory failure with hypoxia Status: Resolved Assessment and Plan: Resolved. Presented with worsened shortness of breath and hypoxia with O2 sats in the 80s at home [place] to be secondary to COPD exacerbation Home oxygen evaluation completed today and patient requires 2 L supplemental oxygen with activity Continue 2 L supplemental O2 at night Plan as below (2) COPD exacerbation: Code(s): J44.1 - Chronic obstructive pulmonary disease with (acute) exacerbation Status: Acute Assessment and Plan: As above, presented with worsened shortness of breath, found to be wheezing consistent with acute COPD exacerbation She has been treated with doxycycline as an outpatient per hide examiner without improvement Continue Solu-Medrol 40 mg IV b.i.d., plan to transition to p.o. prednisone tomorrow Continue scheduled DuoNebs Sputum culture pending Continue IV Rocephin Viral respiratory is pending (3) Systemic lupus erythematosus: Qualifiers: Systemic lupus erythematosus organ involvement: unspecified Systemic lupus erythematosus type: unspecified Qualified Code(s): M32.9 - Systemic lupus erythematosus, unspecified Code(s): M32.9 - Systemic lupus erythematosus, unspecified Status: Acute Assessment and Plan: No acute issues at this time Continue home medication regimen She has an appointment this week for outpatient infusion (4) Leukocytosis: Code(s): D72.829 - Elevated white blood cell count, unspecified Status: Acute Assessment and Plan: Presented with mild leukocytosis up to 13.1, this improved but now trending upward again likely due to IV steroids Monitor CBC (5) Ventricular tachycardia seen on monitoring manager: Code(s): I47.2 - Ventricular tachycardia Status: Acute Assessment and Plan: Patient noted to have episode of ventricular tachycardia while on telemetry Will obtain EKG Evaluate magnesium. Additional electrolytes stable. Continue to monitor on telemetry Subjective Date/time seen: 10/27/21 14:12 Interval history: Date of service: 10/27/2021 Adwoa Skinner is a 56-year-old female with a history of COPD, nocturnal hypoxemia on 2 L supplemental O2 at nighttime, SLE, migraines, and tobacco abuse who is seen in follow-up for COPD exacerbation. She is feeling a bit better today. She states that her lungs are able to expand more in she can take a deeper breath. She endorses cough that is nonproductive. She states overall she is breathing better. She denies nausea, vomiting, fever, chills, dizziness, lightheadedness, abdominal pain, constipation, diarrhea, dysuria. She is able to get up and walk around. She denies any wheezing but states somewhat older this morning that she had wheezing and her left side. She denies chest pain or palpitations. Review of Systems Review of Systems: All systems reviewed & are unremarkable except as noted in HPI and below Exam Narrative: General: Obese, well-appearing 56 year-old female, sitting up in bed, comfortable, NARD Neuro: awake, alert and oriented x4, speech clear, no focal neuro deficits noted HEENMT: normocephalic, atraumatic, EOMI, sclerae anicteric, moist oral mucosa Respiratory: Diminished breath sounds bilaterally with faint expiratory wheezes on right upper lobe, nonlabored breathing, able to speak in complete sentences Cardio: regular rate, regular rhythm with S1-S2 Abdomen: nondistended, normoactive bowel sounds, soft, nontender to palpation Extremities: no edema, erythema, or tenderness to palpation, DP pulses 2+ bilaterally Skin: no rashes or lesions, warm and dry Psych: appropriate mood and affect, judgment and insight intact Objective Data Vital Signs Vital Signs: Vital Signs - 24 hr 10/26/21 16:00 10/26/21 20:00 10/26/21
--- NOTE | 2021-10-27 14:48 | PC.NURSE ---
Called Mandi So and informed that patient telemetry showed beats of vtach but now showing normal sinus rhythm. Mandi stated she will order EKG for patient.
[2021-10-27] MEDS: QUEtiapine FUMARATE 100 MG TABLET PO (20:03)
[2021-10-27] MEDS: cefTRIAXone 2 GM in SODIUM CHLORIDE 0.9% IV 100 ML 200 ML IVPB (20:04)
[2021-10-28] VITALS (9 sets, daily range): BP systolic 115–135; BP diastolic 44–60; PULSE 66–72; RESP 12–20; TEMP 36.1–36.3; O2SAT 92–98
[2021-10-28] MEDS: IPRATROPIUM BR 0.02% INH SOLN 0.5 MG/2.5 ML VIAL INHALATION ×2 (02:21→08:40)
[2021-10-28] MEDS: ALBUTEROL SULFATE NEB 2.5 MG/0.5 ML INH 5 MG INHALATION ×2 (02:21→08:40)
[2021-10-28 05:39] LABS: Basophils Percent Auto 0.3 % (0.2-1.2); Hemoglobin 11.9 g/dL (12.0-15.0); Immature Granulocyte Absolute 0.25 K/mm3 (0.00-0.031); Lymphocytes Absolute Auto 0.87 K/mm3 (0.9-3.2); Mean Corpuscular HGB Conc 32.2 g/dl (32-36); Mean Corpuscular Hemoglobin 29.3 pg (26-34); Mean Corpuscular Volume 91.1 fl (80-100); Mean Platelet Volume 10.1 fl (7.4-10.4); Monocytes Absolute Auto 0.9 K/mm3 (0.1-0.6); Monocytes Percent Auto 7.3 % (2.6-8.5); Neutrophils Absolute Auto 10.3 K/mm3 (1.3-6.7); Neutrophils Percent Auto 83.4 % (45.5-73.1); Platelet Count Result 228 k/mm3 (150-375); Red Blood Count 4.06 M/mm3 (4.2-5.4); Red Cell Distribution Width 14.1 % (11.5-14.5); White Blood Count 12.4 K/mm3 (4.5-10.0)
[2021-10-28 05:49] LABS: Alanine Aminotransferase 17 U/L (4-35); Albumin Level 2.9 g/dL (3.5-5.1); Alkaline Phosphatase 73 U/L (38-126); Anion Gap 5 mmol/L (8-16); Aspartate Amino Transferase 31 U/L (14-36); Bilirubin,Total < 0.1 mg/dL (0.2-1.3); Blood Urea Nitrogen 13 mg/dL (7-17); Calcium 8.2 mg/dL (8.4-10.2); Carbon Dioxide 23 mmol/L (22-30); Chloride 114 mmol/L (98-107); Estimated CRCL calculation 64 ml/min; Estimated Glomerular Filt Rate 57; Glucose 102 mg/dL (65-110); Potassium 3.6 mmol/L (3.4-5.0); Sodium 142 mmol/L (137-145)
[2021-10-28] MEDS: FLUTICASONE/SALMETEROL 115-21 MCG INHALER 1 PUFF 2 PUFF INHALATION (08:40)
[2021-10-28] MEDS: CYANOCOBALAMIN 500 MCG TABLET BY MOUTH (09:09)
[2021-10-28] MEDS: lisinopriL 20 MG TABLET PO (09:10)
[2021-10-28] MEDS: ESCITALOPRAM OXALATE 10 MG TABLET 20 MG PO (09:10)
[2021-10-28] MEDS: predniSONE 20 MG TABLET 40 MG PO (09:10)
[2021-10-28] MEDS: PREGABALIN (*CRX) 50 MG CAPSULE PO (09:10)
[2021-10-28] MEDS: PANTOPRAZOLE SOD SESQUIHYDRATE 20 MG TAB PO (09:10)
[2021-10-28] MEDS: HYDROXYCHLOROQUINE SULFATE 200 MG TABLET PO (09:10)
[2021-10-28] MEDS: ROSUVASTATIN 10 MG TABLET PO (09:10)
[2021-10-28] MEDS: FLUTICASONE PROPIONATE 0.05% NA SPR 16 GM BTL (*BKC) 1 SPRAY NASAL (09:11)
[2021-10-28] MEDS: mycophenolate mofetiL 250 MG CAPSULE 1500 MG PO (09:11)
[2021-10-28] MEDS: ENOXAPARIN 40 MG/0.4 ML SYRINGE SUB-Q (09:11)
--- NOTE | 2021-10-28 12:43 | PM.DS ---
DS: Admitting Diagnosis Discharge Date 10/28/2021 Admitting Diagnosis COPD exacerbation DS: Discharge Diagnosis Discharge Diagnosis (1) Acute hypoxemic respiratory failure: Code(s): J96.01 - Acute respiratory failure with hypoxia Status: Resolved Assessment and Plan: Resolved. Presented with worsened shortness of breath and hypoxia with O2 sats in the 80s at home [place] to be secondary to COPD exacerbation Home oxygen evaluation completed and patient requires 2 L supplemental oxygen with activity Continue 2 L supplemental O2 at night (2) COPD exacerbation: Code(s): J44.1 - Chronic obstructive pulmonary disease with (acute) exacerbation Status: Acute Assessment and Plan: As above, presented with worsened shortness of breath and wheezing consistent with acute COPD exacerbation She was treated with doxycycline as an outpatient per thread trimmer without improvement Managed with IV Solu-Medrol scheduled bronchodilators with symptomatic improvement. She was weaned to p.o. prednisone. Will continue prednisone 40 mg daily to complete 5 days Continue home inhalers. Rescue albuterol inhaler as needed Sputum culture pending, preliminary result with growth of normal oropharyngeal calixto Continue p.o. Levaquin on discharge to complete full course of antibiotic (3) Systemic lupus erythematosus: Qualifiers: Systemic lupus erythematosus organ involvement: unspecified Systemic lupus erythematosus type: unspecified Qualified Code(s): M32.9 - Systemic lupus erythematosus, unspecified Code(s): M32.9 - Systemic lupus erythematosus, unspecified Status: Acute Assessment and Plan: No acute issues during hospitalization Continue home medication regimen She has an appointment this week for outpatient infusion (4) Leukocytosis: Code(s): D72.829 - Elevated white blood cell count, unspecified Status: Acute Assessment and Plan: Improved. Likely related to IV steroids (5) Ventricular tachycardia seen on site monitor: Code(s): I47.2 - Ventricular tachycardia Status: Acute Assessment and Plan: Patient noted to have episode of ventricular tachycardia while on telemetry Follow-up EKG showed sinus rhythm Electrolytes reviewed and were stable On further review of telemetry, episodes seemed to be secondary to artifact. Patient was asymptomatic. No need for further monitoring or intervention DS: Summary Hospital Course Hospital Course: Date of admission: 10/25/2021 Date of discharge: 10/28/2021 Adwoa Skinner is a 56-year-old female with a history of COPD, nocturnal hypoxemia on 2 L supplemental O2 at nighttime, SLE, migraines, and tobacco abuse who presented to the emergency department on 10/25/2021 with complaints of worsened shortness of breath. She had been monitoring her O2 sats at home and was the 80s. She had informed her thread trimmer of her symptoms and was started on a course of doxycycline and prednisone without improvement. She was admitted to the hospitalist service for further evaluation and management. Please see above for further details. She had symptomatic improvement with IV steroids which was weaned to p.o. prednisone 40 mg daily which she will continue for 5 days. She has an outpatient appointment scheduled with her thread trimmer on 10/30/2021. Given her overall improvement, she was determined to no longer require inpatient care and was felt to be stable for discharge. She felt comfortable with plans for return home. We discussed worrisome signs and symptoms for which to return and she was educated on her medications. She was discharged in hemodynamically stable condition on 10/28/2021. Status at Discharge Functional status at discharge: independent ambulation Overall status at discharge: patient is progressing back to baseline Time Spent with Patient Time attestation: Total time spent providing an
== END 2021-10-28 13:19 | disposition home or self-care (01) ==
LOC: ANHED 21:06 → ANH2MED 21:30
PROVIDERS: Emergency Medicine; Nurse Practitioner Family; Physician Assistant; Admitting Provider Internal Medicine; Emergency Provider Emergency Medicine; PCP Emergency Medicine; Visit Provider Internal Medicine
DX: J96.01 Acute respiratory failure with hypoxia (principal); J44.1 Chronic obstructive pulmonary disease with (acute) exacerbation; M32.9 Systemic lupus erythematosus, unspecified; D72.829 Elevated white blood cell count, unspecified; I47.2 Ventricular tachycardia; F17.210 Nicotine dependence, cigarettes, uncomplicated
CPT/HCPCS: 36415; 71046; 80053; 83036; 83735; 85025; 86140; 87040; 87070; 87205; 87633; 93005; 94618; 94640; 96361; 96365; 96372; 96375; 96376; 99285; A9270; G0378; J0696; J1650; J2920; J2930; J7030; J7512; J7517

== ENCOUNTER 2022-03-03 13:14 | Outpatient (CLI) | payer MEDICARE, SELFPAY ==
--- NOTE | ~2022-03-03 | CT_ITS ---
EXAMINATION:CT diagnostic chest wo con DATE: 03/03/2022 13:33 INDICATION: Other nonspecific abnormal finding in lung field. Lung nodules. TECHNIQUE: Computed tomography (CT) of the chest was performed without intravenous contrast. Automate d exposure control and iterative reconstruction technique were employed. The dose-length product (DLP ) was 443.51 mGy-cm. COMPARISON: Chest CT 12/27/2021 FINDINGS: There is mild emphysema. There is minimal atelectasis in the lungs. There is a stable 5 mm nodule left major fissure. No pleural effusion. There is an aberrant right subclavian artery. The hea rt size is normal. There are coronary artery calcifications. No pericardial effusion. There is mild t horacic spondylosis. IMPRESSION: 1. Lung-RADS category 2: Benign appearance or behavior. Continue annual screening with noncontrast lo w-dose chest CT in 12 months. Reviewed, dictated and finalized at location A. IMPRESSION: 1. Lung-RADS category 2: Benign appearance or behavior. Continue annual screeni ng with noncontrast low-dose chest CT in 12 months.
== END 2022-03-03 13:15 | disposition home or self-care (01) ==
PROVIDERS: PCP Emergency Medicine; Visit Provider Nurse Practitioner Family
DX: R91.8 Other nonspecific abnormal finding of lung field (principal)
CPT/HCPCS: 71250

== ENCOUNTER 2022-03-25 02:04 | Day surgery (SDC) | payer MEDICARE, SELFPAY ==
[2021-12-09 13:37] VITALS: BMI 46.2
[2022-03-11 14:04] VITALS: BMI 46.2
[2022-03-11 14:14] VITALS: BMI 46.6
[2022-03-25 06:56] VITALS: BP 125/65; PULSE 91; RESP 20; TEMP 36.8; O2SAT 97
[2022-03-25] MEDS: LACTATED RINGERS 1,000 ML 150 ML IV CONT (07:07)
--- NOTE | 2022-03-25 07:51 | PM.HPGS ---
History of Present Illness History of Present Illness Consent: Risks, benefits, and alternatives have been discussed and questions answered. Patient agrees to proceed with procedure. Chief complaint: hx of colon polyps Narrative: Adwoa Skinner is a 56 year old female with colon polyp and due to have another one Review of Systems Constitutional: Constitutional: Denies headache(s) and Denies weakness Eyes: Eyes: Denies blurry vision ENT: Reports Normal hearing present, Denies headache(s) and Denies neck pain Cardiovascular: Cardiovascular: Denies chest pain and Denies dyspnea Respiratory: Respiratory: Denies dyspnea Gastrointestinal: Gastrointestinal: Reports no additional gastrointestinal complaints Genitourinary: Genitourinary: Denies dysuria Musculoskeletal: Musculoskeletal: Denies neck pain Integumentary/Breasts: Skin/Breast: Denies dry skin Neurologic: Reports Normal hearing present, Denies headache(s) and Denies weakness Psychiatric: Psychiatric: Denies anxiety Endocrine: Endocrine: Denies change in body appearance Hematologic/Lymphatic: Hematologic/Lymphatic: Denies easy bleeding Allergic/Immunologic: Allergic/Immunologic: Denies urticaria PMFSH Past Medical History Medical History (Updated 03/25/22 @ 07:52 by Deon Briscoe MD) Adenomatous colon polyp Allergic rhinitis, unspecified Body mass index (BMI) 45.0-49.9, adult Chronic obstructive pulmonary disease Nocturnal hypoxemia SOB (shortness of breath) Systemic lupus erythematosus Tobacco abuse Surgical History Surgical History History of arthroscopy of knee History of carpal tunnel release History of section History of D&C History of hernia repair History of hysterectomy History of knee replacement History of repair of rotator cuff History of tonsillectomy Family History Family History Father Family history of emphysema, Onset Age: 55 Mother , sepsis Sepsis Grandparent Family history of emphysema Social History Social History Smoking packs per day: 1.5 Smoking cigarettes per day: 30.0 Years smoked: 43 Smoking pack-years: 64.50 Smoking status: Current every day smoker Tobacco type: cigarettes Alcohol intake: never Substance use: never Living arrangements: with family Spiritual care concerns: No Meds Home Medications and Allergies Home Medications Medication Instructions Recorded Confirmed Type Vitamin D3 50,000 mcg PO WEEKLY 05/07/19 03/12/22 History carisoprodol 350 mg tablet 350 mg PO TID PRN Muscle Spasm 05/07/19 03/12/22 History escitalopram oxalate 20 mg tablet 20 mg PO DAILY 05/07/19 03/12/22 History (Lexapro) fluocinonide 0.1 % topical cream 1 applic topical BID PRN Skin 05/07/19 03/12/22 History (Vanos) Irritation fluticasone propionate 50 1 spray intranasal Q12H 05/07/19 03/12/22 History mcg/actuation nasal spray,suspension (Flonase Allergy Relief) hydrocodone 10 mg-acetaminophen 1 tablet PO Q4H PRN migraines 05/07/19 03/12/22 History 325 mg tablet hydroxychloroquine 200 mg tablet 200 mg PO BID 05/07/19 03/12/22 History (Plaquenil) lisinopril 20 mg tablet 20 mg PO DAILY 05/07/19 03/12/22 History omeprazole 10 mg capsule,delayed 10 mg PO DAILY 05/07/19 03/12/22 History release pregabalin 50 mg capsule (Lyrica) 50 mg PO BID 05/07/19 03/12/22 History quetiapine 200 mg tablet (Seroquel) 100 mg PO HS 05/07/19 03/12/22 History rosuvastatin 10 mg tablet 10 mg PO DAILY 05/07/19 03/12/22 History mycophenolate mofetil 500 mg tablet 1.5 gm PO Q12H 11/30/19 03/12/22 History albuterol sulfate 90 mcg/actuation 2 inh inhalation Q4-6H PRN 07/25/20 03/12/22 Rx aerosol inhaler (ProAir HFA) shortness of breath or wheezing 90 days #25.5 grams albuterol sulfate 2.5
--- NOTE | 2022-03-25 07:52 | WPDANESEPPF ---
Anes - Initial Pre Proc Eval Procedure: Operation Date: 03/25/22 08:00 Proposed Procedures p Screening Colonoscopy - Deon Briscoe MD Date/Time: 03/25/22 07:52 Surgeon: Deon Briscoe MD Pre Op Diagnosis: hx of colon polyps Patient Data Age: 56 Gender: F Height: 1.55 m Weight: 108.7 kg Last Vital Signs Temp 98.3 F 03/25/22 06:56 Pulse 91 03/25/22 06:56 Resp 20 03/25/22 06:56 BP 125/65 03/25/22 06:56 Pulse Ox 97 03/25/22 06:56 O2 Del Method Room Air 03/25/22 06:56 Allergies Allergy/AdvReac Type Severity Reaction Status Date / Time bupropion Allergy Unknown HIVES Verified 03/25/22 06:55 Home Medications Medication Instructions Recorded Confirmed Type Vitamin D3 50,000 mcg PO WEEKLY 05/07/19 03/12/22 History carisoprodol 350 mg tablet 350 mg PO TID PRN Muscle Spasm 05/07/19 03/12/22 History escitalopram oxalate 20 mg tablet 20 mg PO DAILY 05/07/19 03/12/22 History (Lexapro) fluocinonide 0.1 % topical cream 1 applic topical BID PRN Skin 05/07/19 03/12/22 History (Vanos) Irritation fluticasone propionate 50 1 spray intranasal Q12H 05/07/19 03/12/22 History mcg/actuation nasal spray,suspension (Flonase Allergy Relief) hydrocodone 10 mg-acetaminophen 1 tablet PO Q4H PRN migraines 05/07/19 03/12/22 History 325 mg tablet hydroxychloroquine 200 mg tablet 200 mg PO BID 05/07/19 03/12/22 History (Plaquenil) lisinopril 20 mg tablet 20 mg PO DAILY 05/07/19 03/12/22 History omeprazole 10 mg capsule,delayed 10 mg PO DAILY 05/07/19 03/12/22 History release pregabalin 50 mg capsule (Lyrica) 50 mg PO BID 05/07/19 03/12/22 History quetiapine 200 mg tablet (Seroquel) 100 mg PO HS 05/07/19 03/12/22 History rosuvastatin 10 mg tablet 10 mg PO DAILY 05/07/19 03/12/22 History mycophenolate mofetil 500 mg tablet 1.5 gm PO Q12H 11/30/19 03/12/22 History albuterol sulfate 90 mcg/actuation 2 inh inhalation Q4-6H PRN 07/25/20 03/12/22 Rx aerosol inhaler (ProAir HFA) shortness of breath or wheezing 90 days #25.5 grams albuterol sulfate 2.5 mg/3 mL 2.5 mg (3 mL) inhalation QID PRN 11/10/21 03/12/22 Rx (0.083 %) solution for nebulization shortness of breath or wheezing #360 mL loratadine 10 mg tablet 10 mg PO DAILY 12/09/21 03/12/22 History Trelegy Ellipta 100 mcg-62.5 1 inh inhalation Q24H 90 days #180 12/26/21 03/12/22 Rx mcg-25 mcg powder for inhalation ea ([id number]) Patient hx anesthesia problems: none and other (states stopped breathing with last colonoscopy) Family hx anesthesia problems: none Results Review: All pre-operative results and documents have been reviewed as part of the pre-operative evaluation. [facility] Past Medical History Medical History (Updated 03/25/22 @ 07:52 by Deon Briscoe MD) Adenomatous colon polyp Allergic rhinitis, unspecified Body mass index (BMI) 45.0-49.9, adult Chronic obstructive pulmonary disease Nocturnal hypoxemia SOB (shortness of breath) Systemic lupus erythematosus Tobacco abuse Surgical History Surgical History History of arthroscopy of knee History of carpal tunnel release History of section History of D&C History of hernia repair History of hysterectomy History of knee replacement History of repair of rotator cuff History of tonsillectomy Family History Family History Father Family history of emphysema, Onset Age: 55 Mother , sepsis Sepsis Grandparent Family history of emphysema Social History Social History Smoking packs per day: 1.5 Smoking cigarettes per day: 30.0 Years smoked: 43 Smoking pack-years: 64.50 Smoking status: Current every day smoker Tobacco type: cigarettes Alcohol intake: never Substance use: never Living
[2022-03-25 08:19] VITALS: BP 96/56; PULSE 57; RESP 21; O2SAT 95
[2022-03-25 08:29] VITALS: BP 108/57; PULSE 55; RESP 17; O2SAT 95
== END 2022-03-25 08:50 | disposition home or self-care (01) ==
PROVIDERS: PCP Emergency Medicine; Visit Provider Internal Medicine Gastroenterology
PROC: 0DJD8ZZ Inspection of Lower Intestinal Tract, Via Natural or Artificial Opening Endoscopic (ICD-10-PCS; CPT 45378; principal; 2022-03-25 08:00)
DX: Z12.11 Encounter for screening for malignant neoplasm of colon (principal); K63.5 Polyp of colon; K64.8 Other hemorrhoids; M32.9 Systemic lupus erythematosus, unspecified; J44.9 Chronic obstructive pulmonary disease, unspecified; F17.210 Nicotine dependence, cigarettes, uncomplicated; Z79.51 Long term (current) use of inhaled steroids; E66.01 Morbid (severe) obesity due to excess calories; Z68.42 Body mass index [BMI] 45.0-49.9, adult
CPT/HCPCS: 45385; 88305; J2704; J7120

== ENCOUNTER 2022-08-20 08:57 | Outpatient (CLI) | payer MEDICARE, SELFPAY ==
--- NOTE | 2022-08-31 15:43 | WPDSLEEPSTUD ---
Sleep Study Date of Study: 08/20/22 Ordering Provider: MARIPOSA Garrido Interpreting Physician: Alice Stubbs DO Sleep Study Type: Polysomnogram Height: 1.55 m Weight: 113.398 kg Body Mass Index: 47.2 Neck Circumference (inches): 18 [place]: 1 Reason for Sleep Study Morning headaches Sleep History The patient is a 56-year-old female with COPD, nocturnal hypoxemia, systemic lupus erythematosus, morbid obesity, hypertension, GERD, stage 3 chronic kidney disease and tobacco use that had a sleep study ordered by her survey research analyst for evaluation of sleep apnea. The patient rarely awakens from sleep short of breath. She denies awakening at night with heartburn, belching or cough. She occasionally snores but it is never loud enough that others complain. She denies having trouble sleeping when she has a cold. She denies waking up gasping for air throughout the night. She occasionally has breathing problems at night observed by herself or others. She rarely sweats excessively at night. She denies having heart palpitations or irregular heartbeats during the night. She denies falling asleep during the day and while driving. She denies sleep paralysis and cataplexy. She denies having trouble at school or work due to sleepiness. She rarely experiences vivid dreamlike scenes upon awakening or falling asleep. She denies feeling afraid of going to sleep and denies having nightmares. She rarely remembers her dreams. She occasionally has thoughts racing through her mind. She denies feeling sad or depressed. She occasionally has anxiety. She occasionally has muscular tension. She occasionally notices parts of her body jerk. She denies kicking during the night. She rarely has crawling and aching feelings in her legs and denies having leg pain during the night. She denies grinding her teeth during sleep and denies awakening with morning jaw pain. She is frequently bothered by pain during the day but rarely awakened by pain during the night. She constantly wakes up feeling stiff in the morning. She frequently wakes up with sore or achy muscles. She frequently wakes up with pain in the neck, spine and other joints. The patient goes to bed at midnight on both weekdays and weekends. It takes her 30 minutes to fall asleep. She typically does not wake up throughout the night. If she does, it is to take care of her dogs. She is able to fall back asleep within 10-15 minutes. She wakes up between 9-11 a.m. on both weekdays and weekends. She typically gets 8-10 hours of sleep per night. She does not stay in bed after waking up in the morning. She currently lives with her . She does not consume any caffeinated beverages within 2 hours of bedtime. She does not engage in physical exercise before bedtime. He will watch television before falling asleep. She denies taking naps in the afternoon or the evening. She drinks 4 cups of caffeinated beverage per day. She smokes 1.5 packs of cigarettes per day. She denies alcohol and recreational drug use. FORMERLY [facility], [facility] Past Medical History Medical History Adenomatous colon polyp Allergic rhinitis, unspecified Body mass index (BMI) 45.0-49.9, adult Chronic obstructive pulmonary disease Nocturnal hypoxemia SOB (shortness of breath) Systemic lupus erythematosus Tobacco abuse Surgical History Surgical History History of arthroscopy of knee History of carpal tunnel release History of section History of D&C History of hernia repair History of hysterectomy History of knee replacement History of repair of rotator cuff History of tonsillectomy Family History Family History Father Family history of emphysema, Onset Age: 55 Mother , sepsis Sepsis Grandparent Family history of emphysema
[2022-08-31 15:45] VITALS: BMI 47.2
== END 2022-08-21 07:29 | disposition home or self-care (01) ==
LOC: ANHCSM 09:00
PROVIDERS: PCP Emergency Medicine; Visit Provider Physician Assistant
DX: G47.10 Hypersomnia, unspecified (principal); G47.34 Idiopathic sleep related nonobstructive alveolar hypoventilation
CPT/HCPCS: 95810

== ENCOUNTER 2022-11-12 08:11 | Outpatient (CLI) | payer MEDICARE, SELFPAY ==
[2022-11-12 08:30] VITALS: PULSE 73; O2SAT 93
[2022-11-12 08:35] VITALS: PULSE 92; O2SAT 87
[2022-11-12 08:40] VITALS: PULSE 94; O2SAT 88
[2022-11-12 08:45] VITALS: PULSE 95; O2SAT 91
[2022-11-12 09:00] VITALS: PULSE 75; O2SAT 94
[2022-11-12 09:12] LABS: Alveolar/Arterial O2 Gradient 56.2 mmHg; Carboxyhemoglobin 3.5 % THb (0-2.0); Fractional Inspired Oxygen 21 %; HCO3 ABG 19.8 mEq/l (22.0-26.0); Methemoglobin ABG 0.1 %THb (0-1.5); Oxygen Content ABG 16.2 %vol (16.0-22.0); Oxygen Saturation ABG 88.8 % (95.0-100.0); PCO2 ABG 32.6 mmHg (35.0-45.0); PO2 ABG 54.5 mmHg (80.0-100.0); Reduced Hemoglobin 11.2 %THb (0-5.0); Total Hemoglobin 13.5 g/dL (12.0-18.0); pH ABG 7.402 (7.350-7.450)
[2022-11-12 09:16] LABS: Modified Allen's Test Pass; Oxyhemoglobin 85.2 % THb (90.0-100.0); Site Drawn LEFT RADIAL
[2022-11-12 09:17] LABS: Device ROOM AIR
--- NOTE | 2022-11-12 09:53 | HOMEO2EVAL ---
Evaluation was performed at [facility] Home Oxygen Evaluation RC: Home Oxygen (O2) Evaluation Start: 11/12/22 09:51 Freq: Status: Active Protocol: RPE Activity Type Activity Date Activity User E-sign Co-sign Detail Recorded Client Recorded Date Recorded By Document 11/12/22 08:30 DJO [email or web address] 11/12/22 09:53 DJO Document 11/12/22 08:35 [email or web address] [email or web address] 11/12/22 09:53 DJO Document 11/12/22 08:40 [email or web address] [email or web address] 11/12/22 09:53 DJO Document 11/12/22 08:45 [email or web address] [email or web address] 11/12/22 09:53 DJO Document 11/12/22 09:00 [email or web address] [email or web address] 11/12/22 09:53 DJO 11/12/22 11/12/22 11/12/22 08:30 08:35 08:40 Home O2 Evaluation [Oxygen] -Test Phase Resting Exercise Exercise -Oxygen Delivery Room Air Room Air Nasal Cannula -Oxygen Flow Rate (L/min) 1 [Pulse Oximetry] -Pulse Oximetry (90-100 %) 93 87 L 88 L [Pulse Rate] -Pulse Rate (60-100 beats/min) 73 92 94 [Evaluation] -Activity Tolerance [Exercise] -Ambulation Distance (feet) -Ambulation Distance (meters) [Charges] -Treatment Charges O2 Evaluation - Outpatient 11/12/22 11/12/22 08:45 09:00 Home O2 Evaluation [Oxygen] -Test Phase Exercise Resting -Oxygen Delivery Nasal Cannula Room Air -Oxygen Flow Rate (L/min) 2 [Pulse Oximetry] -Pulse Oximetry (90-100 %) 91 94 [Pulse Rate] -Pulse Rate (60-100 beats/min) 95 75 [Evaluation] -Activity Tolerance Good [Exercise] -Ambulation Distance (feet) 500 -Ambulation Distance (meters) 152.39 [Charges] -Treatment Charges
--- NOTE | 2022-11-12 16:02 | WPDPFTINT ---
PFT Procedure Performed PFT Procedure Performed Spirometry with Pre/Post Bronchodilator Plethysmography (Lung Vol) Diffusing Cap (DLCO) Flow Vol Loop PFT Interpretation This is a pulmonary function test with pre and post-bronchodilator spirometry, plethysmography and diffusing capacity. The test was performed and results interpreted in accordance with the 2019 and 2005 ATS/ERS Task Force guidelines respectively using the Global Lung Function Initiative-2012 reference equations. Patient demonstrated good effort and cooperation. Reproducibility criteria were met. The quality of the pre bronchodilator spirometry maneuver was Grade A and post bronchodilator spirometry maneuver was Grade A. Findings: Spirometry: The contour the inspiratory and expiratory flow tracing are normal. The pre bronchodilator FVC is 2.37 L, 82% predicted. The pre bronchodilator FEV1 is 1.70 L, 74% predicted. The pre bronchodilator FEV1: FVC ratio 72%. The post bronchodilator FVC is 2.56 L, representing an 8% increase. The post bronchodilator FEV1 is 1.93 L, representing a 13% increase. The post bronchodilator FEV1: FVC ratio 75%. Plethysmography: The total lung capacity is 4.87, 106% predicted. The functional residual capacity is 1.01 L, 39% predicted. The residual volume is 0.98 L, 54% predicted. Diffusing capacity: The diffusing capacity unadjusted for hemoglobin and carboxyhemoglobin is 12.3, 60% predicted. The diffusing capacity adjusted for alveolar volume is 3.35, 73% predicted. Resting room air arterial blood gas: PH 7.40, PaCO2 33, PaO2 55. In comparison to previous pulmonary function testing on 04/07/2021 the post bronchodilator FVC is unchanged from 2.43 L to 2.56 L. The post bronchodilator FEV1 is unchanged from 1.80 L to 1.93 L. The total lung capacity is unchanged from 4.54 L to 4.87 L. The functional residual capacity is decreased from 2.35 L to 1.01 L. The residual volume is decreased from 2.25 L to 0.98 L. The diffusing capacity unadjusted for hemoglobin and carboxyhemoglobin is unchanged from 12.3 to 12.3. The diffusing capacity adjusted for alveolar volume is unchanged from 3.19 to 3.35 Impression: The spirometry is normal without evidence of an obstructive abnormality. The total lung volume is normal without evidence of and restrictive abnormality. The FVC is normal and the prebronchodilator FEV1 is mildly decreased without an obstructive or restrictive abnormality. This is an abnormal but nonspecific finding. There is significant improvement after inhaling a single dose of albuterol. The total lung capacity is normal with a decreased functional residual capacity and residual volume. This is an abnormal but nonspecific lung volume pattern. The diffusing capacity unadjusted for hemoglobin and carboxyhemoglobin is mildy decreased and normalizes when adjusted for alveolar volume. In comparison to previous pulmonary function testing on 04/07/2021 there has been a greater than anticipated time dependent decrease in the functional residual capacity and residual volume with no change in the FVC, FEV1, total lung capacity or diffusing capacity. Clinical correlation is recommended.
== END 2022-11-12 08:12 | disposition home or self-care (01) ==
LOC: ANHPFT 08:12
PROVIDERS: PCP Emergency Medicine; Visit Provider Physician Assistant
DX: J96.11 Chronic respiratory failure with hypoxia (principal); J44.9 Chronic obstructive pulmonary disease, unspecified; Z99.81 Dependence on supplemental oxygen
CPT/HCPCS: 36600; 82375; 82805; 83050; 94060; 94618; 94726; 94729

== ENCOUNTER → 2023-02-19 13:08 | Outpatient (CLI) | payer MEDICARE, SELFPAY ==
--- NOTE | ~2023-02-19 | DEXA_ITS ---
Bone Density Report Name: EMILIANA HUGHES Age: 57 Sex: Female Ethnicity: White Date of : 1965 Indication: postmenopausal; screening for osteoporosis; asthma or emphysema; hysterectomy; Referring Provider: ALFRED ESCALANTE Study: Bone densitometry was performed. Exam Date: February 19, 2023 Accession number: [id number] Bone Density: Region BMD T-score Z-score Classification AP Spine (L1-L4) 0.958 -0.8 0.5 Normal Femoral Neck (Left) 0.851 0.0 1.2 Normal Total Hip (Left) 0.952 0.1 0.9 Normal Femoral Neck (Right) 0.844 0.0 1.2 Normal Total Hip (Right) 0.940 0.0 0.8 Normal Total Hip Mean 0.946 0.1 0.9 Normal World Health Organization criteria for BMD impression classify patients as: Normal (T-score at or above -1.0), Osteopenia (T-score between -1.0 and -2.5), or Osteoporosis (T-score at or below -2.5). 10-year Fracture Risk: FRAX not reported because: All T-scores for Spine Total, Hip Total, Femoral Neck at or above -1.0 Previous Exams: Region Exam Age BMD T-score BMD Change BMD Change Date g/cm2 vs Baseline vs Previous AP Spine(L1-L4) 02/19/2023 57 0.958 -0.8 -0.056 0.022 03/22/2018 52 0.936 -1.0 -0.077 -0.046* 01/01/2016 50 0.982 -0.6 -0.031 -0.031 08/10/2012 46 1.014 -0.3 Total Hip(Left) 02/19/2023 57 0.952 0.1 -0.050 0.019 03/22/2018 52 0.933 -0.1 -0.069 -0.060* 01/01/2016 50 0.993 0.4 -0.009 -0.009 08/10/2012 46 1.002 0.5 Total Hip(Right) 02/19/2023 57 0.940 0.0 -0.031 0.023 03/22/2018 52 0.917 -0.2 -0.054 -0.035* 01/01/2016 50 0.953 0.1 -0.018 -0.018 08/10/2012 46 0.971 0.2 *Denotes significance at 95% confidence level, LSC for AP Spine = 0.022 g/cm2, LSC for Total Hip = 0.027 g/cm2 Clinical Information Provided by Patient: Smokes Has used the following medications: Vitamin D Has the following medical conditions: Asthma or Emphysema, Hysterectomy Patient maximum height was 62.0 Menopause Age: 33 No regular weight bearing exercise Drinks caffeinated beverages Onset of menses at age 15 Number of children 2 Missed period for more than 6 months in a row Impression: The patient has normal bone mass. The patient has risk factors, including: smoking. No significant bone loss was observed. Discussion: BONE DEN
--- NOTE | ~2023-02-19 | MM_ITS ---
EXAMINATION: MM screening sweta BI w elizabeth HISTORY: Screening TECHNIQUE: Craniocaudal and mediolateral oblique 3-D tomosynthesis images were obtained and synthetic 2-D images were generated. CAD analysis was submitted and interpreted. COMPARISON: Comparison to multiple prior studies sequentially, with oldest reviewed study dated 01/2016. BREAST PARENCHYMAL COMPOSITION: Breast composed of scattered areas of fibroglandular density FINDINGS: There is no evidence of suspicious mass, calcification, or architectural distortion to sugg est malignancy in either breast. There has been no suspicious interval change. IMPRESSION: 1. No mammographic evidence of malignancy. 2. Recommend routine screening mammography in one year. BI-RADS Category 1: Negative Reviewed, dictated and finalized at location A.
== END ==
PROVIDERS: PCP Emergency Medicine; Visit Provider Emergency Medicine
DX: Z12.31 Encounter for screening mammogram for malignant neoplasm of breast (principal); Z78.0 Asymptomatic menopausal state
CPT/HCPCS: 77063; 77067; 77080

== ENCOUNTER 2023-03-12 12:50 | Outpatient (CLI) | payer MEDICARE, SELFPAY ==
--- NOTE | ~2023-03-12 | CT_ITS ---
EXAMINATION: CT lung screening DATE: 03/12/2023 13:44 INDICATION: Personal history of nicotine dependence, current smoker with 84 pack year history TECHNIQUE: Computed tomography (CT) of the chest was performed without intravenous contrast. The dose -length product (DLP) was 306.24 mGy-cm. 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 COMPARISON: 03/03/2022 FINDINGS: There is mild emphysema. There is a stable 3 mm nodule in association with the left major f issure. No new pulmonary nodule is identified. No pleural effusion or pneumothorax. There is mild ate lectasis of the lungs. No pathologically enlarged thoracic lymph nodes are identified. The heart size is normal. An aberrant right subclavian artery is again noted. No pathologically enlarged thoracic l ymph nodes are identified. The heart size is normal. There is calcified coronary artery atheroscleros is. There is mild thoracic spondylosis. IMPRESSION: 1. Lung-RADS category 2: Benign appearance or behavior. Continue annual screening with noncontrast lo w-dose chest CT in 12 months. Reviewed, dictated and finalized at location B. IMPRESSION: 1. Lung-RADS category 2: Benign appearance or behavior. Continue annual screeni ng with noncontrast low-dose chest CT in 12 months.
== END 2023-03-12 12:51 | disposition home or self-care (01) ==
LOC: ANHIMG 13:28
PROVIDERS: PCP Emergency Medicine; Visit Provider Internal Medicine Critical Care Medicine
DX: Z12.2 Encounter for screening for malignant neoplasm of respiratory organs (principal); Z87.891 Personal history of nicotine dependence
CPT/HCPCS: 71271

== ENCOUNTER 2023-06-23 11:45 | Outpatient (CLI) | payer MEDICARE, SELFPAY ==
--- NOTE | ~2023-06-23 | XR_ITS ---
Clinical Indication: Pneumonia PA and lateral views of the chest: Comparison: 10/25/2021 Findings: The lungs are clear, without evidence of focal consolidation or pleural effusion. Cardiome diastinal silhouette is within normal limits. Bones and soft tissues are unremarkable. Impression: Normal chest. Reviewed, dictated and finalized at [facility]. 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
== END 2023-06-23 11:46 | disposition home or self-care (01) ==
PROVIDERS: PCP Emergency Medicine; Visit Provider Emergency Medicine
DX: J44.1 Chronic obstructive pulmonary disease with (acute) exacerbation (principal)
CPT/HCPCS: 71046

== ENCOUNTER 2023-07-03 13:49 | Emergency (ER) | payer MEDICARE, SELFPAY ==
--- NOTE | ~2023-07-03 | XR_ITS ---
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 RESULT: Lines, tubes, and devices: None. Lungs and pleura: Ill-defined patchy subsegmental left lower lung and segmental right lower lung air space opacities. Linear opacity in the right midlung may represent discoid atelectasis or fluid in th e minor fissure. Mild right costophrenic angle blunting. Cardiomediastinal silhouette: Stable. Other: No acute osseous or upper abdominal finding. IMPRESSION: Patchy bilateral lower lung opacities may represent edema or pneumonia. Small right pleural effusion. Reviewed, dictated and finalized at location K. MAKER IMPRESSION: Patchy bilateral lower lung opacities may represent edema or pneumonia. Small r ight pleural effusion.
[2023-07-03 14:10] VITALS: BP 134/80; PULSE 105; RESP 20; TEMP 37.7; O2SAT 93
[2023-07-03 14:56] LABS: Influenza A QL RT-PCR Negative (Negative); Influenza B QL RT-PCR Negative (Negative); RSV RNA, RT-PCR Negative (Negative); SARS-CoV-2 RNA PCR Negative (Negative)
[2023-07-03 16:08] VITALS: O2SAT 91
[2023-07-03 16:14] VITALS: PULSE 106
[2023-07-03 16:15] VITALS: BP 122/34; PULSE 105; RESP 20; O2SAT 93
--- NOTE | 2023-07-03 16:51 | ED.SOB ---
HPI - SOB/Dyspnea General Chief Complaint: Shortness of Breath/Dyspnea Stated Complaint: SOB Time Seen by Provider: 07/03/23 16:04 History of Present Illness HPI Narrative: 57-year-old female presenting to the emergency department for evaluation of worsening cough and shortness of breath. Patient does have history of COPD follows up with Dr. Coley. Patient reports that on May 17 she had her 1st episode of respiratory illness and patient was started on Z-Elmer. Patient had recurrent symptoms on the 08 of June patient was started on Levaquin and prednisone burst and patient had recurrent symptoms again on the and was started on cefepime for 10 days. Patient does have follow-up with pulmonology on Wednesday. Related Data Home Medications Medication Instructions Recorded Confirmed Vitamin D3 50,000 mcg PO WEEKLY 05/07/19 04/21/23 carisoprodol 350 mg tablet 350 mg PO TID PRN Muscle Spasm 05/07/19 04/21/23 escitalopram oxalate 20 mg tablet 20 mg PO DAILY 05/07/19 04/21/23 (Lexapro) fluocinonide 0.1 % topical cream 1 applic topical BID PRN Skin 05/07/19 04/21/23 (Vanos) Irritation hydrocodone 10 mg-acetaminophen 1 tablet PO Q4H PRN migraines 05/07/19 04/21/23 325 mg tablet hydroxychloroquine 200 mg tablet 200 mg PO BID 05/07/19 04/21/23 (Plaquenil) omeprazole 10 mg capsule,delayed 10 mg PO DAILY 05/07/19 04/21/23 release pregabalin 50 mg capsule (Lyrica) 50 mg PO BID 05/07/19 04/21/23 quetiapine 200 mg tablet (Seroquel) 100 mg PO HS 05/07/19 04/21/23 rosuvastatin 10 mg tablet 10 mg PO DAILY 05/07/19 04/21/23 mycophenolate mofetil 500 mg tablet 1.5 gm PO Q12H 11/30/19 04/21/23 loratadine 10 mg tablet 10 mg PO DAILY 12/09/21 04/21/23 belimumab 120 mg intravenous 400 mg IV ONCE 12/17/22 04/21/23 solution (Benlysta) Allergies Allergy/AdvReac Type Severity Reaction Status Date / Time bupropion Allergy Unknown HIVES Verified 07/03/23 16:16 Review of Systems Review of Systems: All systems reviewed & are unremarkable except as noted in HPI and below PMFSH Past Medical History Medical History Adenomatous colon polyp Allergic rhinitis, unspecified Body mass index (BMI) 45.0-49.9, adult Chronic obstructive pulmonary disease Nocturnal hypoxemia SOB (shortness of breath) Systemic lupus erythematosus Tobacco abuse Surgical History Surgical History History of arthroscopy of knee History of carpal tunnel release History of section History of D&C History of hernia repair History of hysterectomy History of knee replacement History of repair of rotator cuff History of tonsillectomy Family History Family History Father Family history of emphysema, Onset Age: 55 Mother , sepsis Sepsis Grandparent Family history of emphysema Social History Social History Smoking packs per day: 1 Smoking cigarettes per day: 20.0 Years smoked: 43 Smoking pack-years: 43.00 Smoking status: Current every day smoker Tobacco type: cigarettes Alcohol intake: never Substance use: never Living arrangements: with family Spiritual care concerns: No Exam Narrative: APPEARANCE: Well appearing, no pain, no distress, well-nourished. HEAD: normocephalic, atraumatic. EYES: PERRLA/EOMI, conjunctivae clear. NOSE: Normal no drainage EARS:TMS clear with good light reflex. THROAT: Pharynx clear, no exudate. NECK: Supple. No adenopathy, no masses. RESPIRATORY: Increased risk for a with wheezing CARDIOVASCULAR: Regular rate and rhythm without murmurs rubs or gallops. ABDOMINAL: Soft, nontender, nondistended, normal bowel sounds MUSCULOSKELETAL: Moves all extremities. Strength/ROM intact, No edema, No calf tenderness. NEURO: Alert. Cranial nerves II through XII intact.
[2023-07-03] MEDS: AMOXICILLIN/CLAVULANATE K 875-125 MG TAB 1 TABLET PO (17:04)
[2023-07-03] MEDS: AZITHROMYCIN 250 MG TABLET 500 MG PO (17:04)
[2023-07-03] MEDS: predniSONE 20 MG TABLET 40 MG PO (17:04)
[2023-07-03] MEDS: ALBUTEROL SULFATE NEB 2.5 MG/3 ML INH 5 MG INHALATION (17:13)
[2023-07-03 17:35] VITALS: BP 160/56; PULSE 110; RESP 22; O2SAT 93
== END 2023-07-03 17:35 | disposition home or self-care (01) ==
PROVIDERS: Emergency Medicine; Emergency Provider Emergency Medicine; PCP Emergency Medicine
DX: J44.0 Chronic obstructive pulmonary disease with (acute) lower respiratory infection (principal); J18.9 Pneumonia, unspecified organism; J44.1 Chronic obstructive pulmonary disease with (acute) exacerbation; M32.9 Systemic lupus erythematosus, unspecified; F17.210 Nicotine dependence, cigarettes, uncomplicated; Z79.51 Long term (current) use of inhaled steroids; Z79.891 Long term (current) use of opiate analgesic; Z20.822 Contact with and (suspected) exposure to COVID-19
CPT/HCPCS: 71045; 87637; 94640; 99284; A9270; J7512

== ENCOUNTER 2023-10-14 09:29 | Inpatient (IN) | payer MEDICARE, SELFPAY ==
[2023-10-14] VITALS (28 sets, daily range): BP systolic 107–142; BP diastolic 47–72; PULSE 81–119; RESP 15–25; TEMP 36.1–36.9; O2SAT 87–98
--- NOTE | ~2023-10-14 | XR_ITS ---
EXAMINATION: XR chest 1V portable DATE: 10/14/2023 11:55 INDICATION: Shortness of breath. Cough. TECHNIQUE: A single frontal view of the chest was obtained. COMPARISON: Chest single view 07/03/2023 FINDINGS: There are airspace opacities in the lower lung zones. No pleural effusion or pneumothorax. The heart size is normal. IMPRESSION: 1. Airspace opacities in the lower lung zones, consistent with atelectasis versus pneumonia. Reviewed, dictated and finalized at location A. IMPRESSION: 1. Airspace opacities in the lower lung zones, consistent with atelectasis vers us pneumonia.
[2023-10-14 10:05] LABS: Basophils Absolute Auto 0.1 K/mm3 (0.0-0.1); Basophils Percent Auto 0.2 % (0.2-1.2); Eosinophils Absolute Auto 0.1 K/mm3 (0-0.3); Eosinophils Percent Auto 0.3 % (0-4.4); Hematocrit 37.7 % (37.0-47.0); Hemoglobin 11.7 g/dL (12.0-15.0); Immature Granulocyte Absolute 0.47 K/mm3 (0.00-0.031); Lymphocytes Percent Auto 3.8 % (18.3-44.2); Mean Corpuscular Hemoglobin 29.4 pg (26-34); Mean Corpuscular Volume 94.7 fl (80-100); Mean Platelet Volume 11.1 fl (7.4-10.4); Monocytes Absolute Auto 1.2 K/mm3 (0.1-0.6); Neutrophils Absolute Auto 20.8 K/mm3 (1.3-6.7); Neutrophils Percent Auto 88.7 % (45.5-73.1); Platelet Count Result 228 k/mm3 (150-375); Red Blood Count 3.98 M/mm3 (4.2-5.4); White Blood Count 23.4 K/mm3 (4.5-10.0)
[2023-10-14] MEDS: LEVALBUTEROL NEB 1.25 MG/3 ML INHALATION (10:05)
[2023-10-14] MEDS: dexAMETHasone SOD PHOS INJ 10 MG/ML 1 ML VIAL IV PUSH (10:07)
--- NOTE | 2023-10-14 10:07 | ED.SOB ---
HPI - SOB/Dyspnea General Chief Complaint: Shortness of Breath/Dyspnea Stated Complaint: SOB/Covid positive Time Seen by Provider: 10/14/23 09:38 History of Present Illness HPI Narrative: 57-year-old female history of COPD who is oxygen dependent presents to the emergency room for increasing shortness of breath. Patient states earlier this week she had a cough associated with a fever, was seen in urgent care and diagnosed with COVID. Patient was started on Paxil over, and instructed to discontinue her inhalers. Reports waking up this morning with increased shortness of breath, noticed that her SpO2 was 83 while on 2 L of oxygen. Patient able to speak complete sentences. States shortness of breath was worse with exertion. Related Data Home Medications Medication Instructions Recorded Confirmed Vitamin D3 50,000 mcg PO WEEKLY 05/07/19 08/23/23 carisoprodol 350 mg tablet 350 mg PO TID PRN Muscle Spasm 05/07/19 08/23/23 escitalopram oxalate 20 mg tablet 20 mg PO DAILY 05/07/19 08/23/23 (Lexapro) hydrocodone 10 mg-acetaminophen 1 tablet PO Q4H PRN migraines 05/07/19 08/23/23 325 mg tablet hydroxychloroquine 200 mg tablet 200 mg PO BID 05/07/19 08/23/23 (Plaquenil) omeprazole 10 mg capsule,delayed 10 mg PO DAILY 05/07/19 08/23/23 release quetiapine 200 mg tablet (Seroquel) 100 mg PO HS 05/07/19 08/23/23 rosuvastatin 10 mg tablet 10 mg PO DAILY 05/07/19 08/23/23 mycophenolate mofetil 500 mg tablet 1.5 gm PO Q12H 11/30/19 08/23/23 loratadine 10 mg tablet 10 mg PO DAILY 12/09/21 08/23/23 belimumab 120 mg intravenous 400 mg IV ONCE 12/17/22 08/23/23 solution (Benlysta) Allergies Allergy/AdvReac Type Severity Reaction Status Date / Time bupropion Allergy Unknown HIVES Verified 10/14/23 10:07 Review of Systems Review of Systems: CONSTITUTIONAL: Denies fever, chills, or sweats. EYES: Denies visual changes, redness, or discharge. ENT: Denies rhinorrhea, congestion, sore throat, or otalgia. CARDIOVASCULAR: Denies chest pain, palpitations, or edema. RESPIRATORY: Reports productive cough and dyspnea GASTROINTESTINAL: Denies abdominal pain, nausea, vomiting, or diarrhea. GENITOURINARY: Denies dysuria or hematuria. SKIN: Denies rash or itching. MUSCULOSKELETAL: Denies back pain, joint pain, or myalgia. NEUROLOGIC: Denies headache, numbness, dizziness, or weakness. PSYCHIATRIC: Denies anxiety or depression. [facility] Past Medical History Medical History Adenomatous colon polyp Allergic rhinitis, unspecified Body mass index (BMI) 45.0-49.9, adult Chronic obstructive pulmonary disease Nocturnal hypoxemia SOB (shortness of breath) Systemic lupus erythematosus Tobacco abuse Surgical History Surgical History History of arthroscopy of knee History of carpal tunnel release History of section History of D&C History of hernia repair History of hysterectomy History of knee replacement History of repair of rotator cuff History of tonsillectomy Family History Family History Father Family history of emphysema, Onset Age: 55 Mother , sepsis Sepsis Grandparent Family history of emphysema Social History Social History Smoking packs per day: 1 Smoking cigarettes per day: 20.0 Years smoked: 43 Smoking pack-years: 43.00 Smoking status: Current every day smoker Tobacco type: cigarettes Alcohol intake: never Substance use: never Living arrangements: with family Spiritual care concerns: No Exam Narrative: GENERAL: Ill ll-appearing, HEAD: Normocephalic, atraumatic. EYES: Conjunctivae normal, PERRLA and EOMI. CHEST: Rhonchi auscultated throughout Cardio: Sinus tach EXTREMITIES: Normal range of motion. No edema. No clubbing or cyanosis SKIN:
[2023-10-14 10:33] LABS: Alanine Aminotransferase 27 U/L (6-35); Albumin Level 3.3 g/dL (3.5-5.1); Alkaline Phosphatase 117 U/L (38-126); Anion Gap 7 mmol/L (4-12); Aspartate Amino Transferase 44 U/L (14-36); Bilirubin,Total 0.8 mg/dL (0.2-1.3); Blood Urea Nitrogen 15 mg/dL (7-17); Calcium 8.7 mg/dL (8.4-10.2); Carbon Dioxide 29 mmol/L (22-30); Chloride 101 mmol/L (98-107); Estimated CRCL calculation 57 ml/min; Estimated Glomerular Filt Rate 51; Glucose 98 mg/dL (65-110); Potassium 2.9 mmol/L (3.4-5.0); Sodium 137 mmol/L (137-145)
[2023-10-14] MEDS: IPRATROPIUM 0.5 MG/ALBUTEROL SULFATE 2.5 MG AMPUL.NEB 3 ML INHALATION ×2 (13:35→20:52)
[2023-10-14] MEDS: AZITHROMYCIN 500 MG/NS 250 ML 500 MG/250 ML BAG 250 MG IVPB (14:20)
--- NOTE | 2023-10-14 16:12 | PM.IMHP ---
H&P: HPI History of Present Illness Date/Time: 10/14/23 16:12 Chief Complaint: Shortness of Breath, COVID Narrative: 57 y/o F presents here with SOB and COVID with PMH of COPD, SLE, insomnia, depression, and tobacco use. Patient presents here for further evaluation of increasing shortness of breath. Patient was recently diagnosed with COVID on 10/06 at [facility] urgent [facility]. Initially developed symptoms on 10/05. Sought care due to high fevers and sore throat seen at home (103F), cough, and headache. Patient was discharged home and prescribed Paxlovid, however she was instructed to discontinue her steroid inhaler, and was started on prednisone. Patient was concerned about side effects of Paxlovid so she did not take the medications. Patient then developed chest wall discomfort on Wednesday, 10/11. Called her PCP because she was now requiring 4-5L NC (baseline 2L requirement) who reordered the Paxlovid and patient took #doses. Wednesday patient noted that her O2 sats continued to change, now requiring 10L by the end of the day and now felt like she was panting. Patient reports the shortness of breath became severe this morning and noted her home O2 sensor was reading 83% while she was on 10L via nasal cannula. Patient requires 2L NC during daytime hours and 10L NC during nighttime hours/sleeping. Along with shortness of breath, patient is endorsing fever, cough, tachypnea, body aches, and chills. Patient is a current smoker - 1 PPD x approximately 45 years. Initial VS at presentation: 97.8? F, HR 119, RR 24, 118/72, and 87% on 6L nasal cannula. Now 98% on 6L post interventions. ED workup showed: WBC 23.4, mild anemia, potassium 2.9, creatinine 1.1 with GFR of 51 (see previously 1.0 with GFR 57 on 10/28/2021). CXR shows airspace opacities in the lower lung zones. Review of Systems Review of Systems: All systems reviewed & are unremarkable except as noted in HPI and below PMFSH Past Medical History Medical History Adenomatous colon polyp Allergic rhinitis, unspecified Body mass index (BMI) 45.0-49.9, adult Chronic obstructive pulmonary disease Chronic respiratory failure with hypoxia, on home oxygen therapy Depression Insomnia Nocturnal hypoxemia SOB (shortness of breath) Systemic lupus erythematosus Tobacco abuse Surgical History Surgical History History of arthroscopy of knee History of carpal tunnel release History of section History of D&C History of hernia repair History of hysterectomy History of knee replacement History of repair of rotator cuff History of tonsillectomy Family History Family History Father Family history of emphysema, Onset Age: 55 Mother , sepsis Sepsis Grandparent Family history of emphysema Social History Social History Smoking packs per day: 1 Smoking cigarettes per day: 20.0 Years smoked: 40 Smoking pack-years: 40.00 Smoking status: Current every day smoker Tobacco type: cigarettes Alcohol intake: unknown Substance use: never Substance use type: opiates Do You Feel Safe in your Home?: Yes Lack of Transportation: No Lack of Food: Never True Current Housing: I Have Housing Concerned About Future Housing: No Difficulty Paying Gas/Electric Bills: No Difficulty Paying for Meds: No Currently Unemployed: No Education: Bachelor's Degree Difficulty w/ Childcare or Family Care: No Living arrangements: with family Spiritual care concerns: No Meds Home Medications and Allergies Home Medications Medication Instructions Recorded Confirmed Type Vitamin D3 50,000 mcg PO WEEKLY 05/07/19 10/14/23 History carisoprodol 350 mg tablet 350 mg PO TID PRN Muscle Spasm 05/07/19 10/14/23 History escitalop
--- NOTE | 2023-10-14 16:25 | ADMGEN ---
This patient, Adwoa Skinner, was admitted to 2 Medical Room 256-01. Patient/family oriented to hospital policies and general routines including ID bracelet, bed and alarms, visiting hours, pain management, procedures, bathroom and other care routines, personal items, smoking policy, room service/diet, and visiting hours. Information on how to activate the Rapid Response Team has been discussed. Patient/Family are encouraged to report perceived risks to care and to ask questions if they do not understand what they are told or what they should do.
[2023-10-14 17:54] LABS: Appearance Urine Clear (Clear); Bacteria Urine None Seen /hpf; Bilirubin Urine Negative (Negative); Blood Urine Negative (Negative); Color Urine Yellow (Yellow); Glucose Urine UA Negative (Negative); Ketones Urine Negative (Negative); Leukocyte Esterase Ur Negative LEU/UL (Negative); Nitrate Urine Negative (Negative); Non Pathogenic Casts 0-2; Protein Urine Trace mg/dL (Negative); RBC Urine 0-2 /hpf (0-2); Specific Grav Ur 1.008 (1.001-1.035); Squamous Epithelial Cell Urine Occasional /hpf (Few); WBC Urine 0-5 /hpf (0-3)
[2023-10-14 17:57] LABS: Add Urine Microscopic? YES
--- NOTE | 2023-10-14 18:25 | PC.NURSE ---
Provider ordered a 3,000 mL bolus of LR. Called provider to clarify order and she said to give it to patient due to sepsis alert. Provider said it was supposed to be given in the ER but since it wasn't to do it on this floor. Will monitor patient for fluid over load.
[2023-10-14 19:03] LABS: MRSA (PCR) NOT DETECTED (NOT DETECTE)
[2023-10-14] MEDS: HEPARIN SODIUM 5,000 UNITS/ML VIAL 5000 UNITS SUB-Q (20:34)
[2023-10-14] MEDS: REMDESIVIR 200 MG/NS 250 ML 200 MG/250 ML BAG 250 MG IVPB (23:55)
[2023-10-15] VITALS (21 sets, daily range): BP systolic 127–140; BP diastolic 43–57; PULSE 57–100; RESP 16–20; TEMP 36.4–37.2; O2SAT 92–96
[2023-10-15] MEDS: IPRATROPIUM 0.5 MG/ALBUTEROL SULFATE 2.5 MG AMPUL.NEB 3 ML INHALATION ×4 (02:35→20:18)
[2023-10-15 05:22] LABS: Alanine Aminotransferase 22 U/L (6-35); Albumin Level 3.2 g/dL (3.5-5.1); Alkaline Phosphatase 107 U/L (38-126); Anion Gap 6 mmol/L (4-12); Aspartate Amino Transferase 28 U/L (14-36); Bilirubin,Total 0.4 mg/dL (0.2-1.3); Blood Urea Nitrogen 13 mg/dL (7-17); Carbon Dioxide 30 mmol/L (22-30); Chloride 105 mmol/L (98-107); Estimated CRCL calculation 77 ml/min; Estimated Glomerular Filt Rate > 60; Glucose 171 mg/dL (65-110); Potassium 3.2 mmol/L (3.4-5.0); Sodium 141 mmol/L (137-145)
[2023-10-15 05:36] LABS: CRP 21.8 mg/dL (<1.0)
[2023-10-15 07:09] LABS: Basophils Percent Auto 0.2 % (0.2-1.2); Hematocrit 35.6 % (37.0-47.0); Hemoglobin 10.7 g/dL (12.0-15.0); Immature Granulocyte Absolute 0.45 K/mm3 (0.00-0.031); Immature Granulocyte Percent A 2.2 % (0-0.5); Lymphocytes Absolute Auto 0.52 K/mm3 (0.9-3.2); Lymphocytes Percent Auto 2.6 % (18.3-44.2); Mean Corpuscular HGB Conc 30.1 g/dl (32-36); Mean Corpuscular Hemoglobin 29.2 pg (26-34); Mean Corpuscular Volume 97.3 fl (80-100); Mean Platelet Volume 11.4 fl (7.4-10.4); Monocytes Absolute Auto 0.5 K/mm3 (0.1-0.6); Monocytes Percent Auto 2.5 % (2.6-8.5); Neutrophils Absolute Auto 18.6 K/mm3 (1.3-6.7); Neutrophils Percent Auto 92.5 % (45.5-73.1); Platelet Count Result 247 k/mm3 (150-375); Red Blood Count 3.66 M/mm3 (4.2-5.4); Red Cell Distribution Width 14.4 % (11.5-14.5); White Blood Count 20.2 K/mm3 (4.5-10.0)
[2023-10-15] MEDS: BUDESONIDE RESPULE NEB 0.5 MG/2 ML AMP INHALATION (08:18)
[2023-10-15] MEDS: PANTOPRAZOLE SODIUM IV 40 MG VIAL IV PUSH (09:29)
[2023-10-15] MEDS: guaiFENesin 12 HR 600 MG TABCR PO ×2 (09:29→20:45)
[2023-10-15] MEDS: rOPINIRole HCL 0.5 MG TABLET PO (09:29)
[2023-10-15] MEDS: ROSUVASTATIN 10 MG TABLET PO (09:29)
[2023-10-15] MEDS: dexAMETHasone 2 MG TABLET 6 MG PO (09:29)
[2023-10-15] MEDS: LORATADINE 10 MG TABLET PO (09:29)
[2023-10-15] MEDS: HEPARIN SODIUM 5,000 UNITS/ML VIAL 5000 UNITS SUB-Q ×2 (09:29→20:48)
[2023-10-15] MEDS: POTASSIUM CHLORIDE 20 MEQ ER TABLET 40 MEQ PO (09:29)
[2023-10-15] MEDS: mycophenolate mofetiL 250 MG CAPSULE 1500 MG PO ×2 (09:30→20:46)
[2023-10-15] MEDS: HYDROXYCHLOROQUINE SULFATE 200 MG TABLET PO ×2 (09:30→17:34)
--- NOTE | 2023-10-15 12:35 | PM.IMPN ---
Progress Note: A&P Assessment and Plan (1) Sepsis: Code(s): A41.9 - Sepsis, unspecified organism Status: Acute Assessment and Plan: - meets SIRS criteria: HR, RR, WBC. Hypoxic, no hypotension. - lactic acid: 2.0 - 30 mL/kg = 3300 LR bolus ordered - suspected source: PNA, COVID - started on ceftriaxone, azithromycin, and remdesivir on 10/13 - blood cultures drawn on 10/13 - UA added - CXR: Airspace opacities in the lower lung zones, consistent with atelectasis versus pneumonia. - monitor I&Os 10/14: continue ceftriaxone azithromycin and remdesivir (2) COVID: Code(s): U07.1 - COVID-19 Status: Acute Assessment and Plan: - symptom onset: 10/05 - tested positive for COVID on: 10/07/23 - complicating comorbidities: COPD, baseline supplemental O2 requirement, PNA - CXR: Airspace opacities in the lower lung zones, consistent with atelectasis versus pneumonia. - remdesivir 200 mg IVPB x1 then 100 mg x4 for 5 total doses. - dexamethasone 6 mg x10 days or until d/c. - prophylaxis: 5,000 units SQ bid - supportive care nebs - albuterol/atrovent Q6H YOANNA TYL prn for fever/pain lozenge prn tessalon perles prn - monitor VS/O2 - monitor daily labs, add CRP for AM labs 10/14: continue ceftriaxone azithromycin and remdesivir (3) Pneumonia: Code(s): J18.9 - Pneumonia, unspecified organism Status: Acute Assessment and Plan: - CXR: Airspace opacities in the lower lung zones, consistent with atelectasis versus pneumonia. - risk factors: none - complicating factors: COPD, COVID - started on CAP tx: Ceftriaxone and azithromycin on 10/13 - MRSA PCR - sputum culture - supplemental O2 requirement at baseline, increased 2L (daytime) -> 6L currently - consider pulmonology consultation if patient does not improve with antibiotics, scheduled nebulizers, steroids, and antiviral 10/14: continue ceftriaxone azithromycin and remdesivir, consult pulmonology who follows patient (4) Systemic lupus erythematosus: Qualifiers: Systemic lupus erythematosus type: unspecified Systemic lupus erythematosus organ involvement: unspecified Qualified Code(s): M32.9 - Systemic lupus erythematosus, unspecified Code(s): M32.9 - Systemic lupus erythematosus, unspecified Status: Acute Assessment and Plan: hydroxychloroquine and mycophenolate, continue home medications (5) Acute and chronic respiratory failure with hypoxia: Code(s): J96.21 - Acute and chronic respiratory failure with hypoxia Status: Acute Assessment and Plan: Patient wears 2 liters/minute nasal cannula during the day and 10 liters/minute at nighttime, currently requiring 6 liters/minute to maintain adequate saturations and work of breathing. Pulmonology consulted. Plan Patient presents here with increasing shortness of breath. Tested positive for COVID on 10/06. CXR consistent with pneumonia. Meet SIRS criteria. Started on CAP abx, remdesivir, and steroids. Home Meds/Chronic Conditions - hold Seroquel and Lexapro to prevent QT prolongation, given patient was started on azithromycin and remdesivir - all other home medications reviewed and continued Diet: Regular GI Prophylaxis: Pantoprazole IVP DVT Prophylaxis: Heparin b.i.d. Lines: Peripheral Code Status: Full code Time Spent With Patient Time with patient: Greater than 35 minutes Subjective Date/time seen: 10/15/23 12:35 Interval history: Patient with history of COPD increased oxygen demand tested positive for COVID 2 days ago at urgent care started on prednisone instead of inhaled corticosteroid. Patient started to feel worse she came to the emergency department. She did not take Paxlovid at home. Started on remdesivir and dexamethasone. Will consult pulmonology. Patient reports that she is very frustrated about the bed alarm and SCDs. Did discontinue SCDs. Patient notes wheezing and dyspnea on exertion. Review of
[2023-10-15] MEDS: AZITHROMYCIN 250 MG TABLET 500 MG PO (13:26)
[2023-10-15] MEDS: cefTRIAXone 2 GM/NS 100 ML 2 GM/100 ML BAG IVPB (13:26)
--- NOTE | 2023-10-15 14:53 | PM.CNPUL ---
Assessment and Plan Assessment and plan (1) Acute and chronic respiratory failure with hypoxia: Code(s): J96.21 - Acute and chronic respiratory failure with hypoxia Status: Acute Assessment and Plan: O2 requirement was higher at admission; she had mild increased in carboxyhemoglobin on her ABG, room air = pH 7.40, pCO2 32.6, pO2 54.5, HC03 19.8, saturation 88.8%, carboxyhemoglobin 3.5, upper limit of normal is 2.0. She does not retain CO2, good marker. She has increased inflammatory markers for COVID, elevated CRP, elevated borderline lactic acid and AST. She had a (+) test October 06, worsened with admission October however could smoke until yesterday. She is on 6 L/min, saturation is higher than necessary, and this could be weaned. Will wean as she gets closer to discharge. (2) COVID: Code(s): U07.1 - COVID-19 Status: Acute Assessment and Plan: (+) at Urgent Care in [place] October 06, got Paxlovid, did not take after reading side effects, her primary sent it again, she took 2 days of it before coming here, now on remdesivir, dexamethasone (3) Pneumonia: Code(s): J18.9 - Pneumonia, unspecified organism Status: Acute Assessment and Plan: Pathogen not identified; she took 2 days of Paxlovid before arrival. She will probably not have a pathogen identified. Continue ceftriaxone, stop azithromycin, might start another med for atypical coverage. Plan plan: *stop azithromycin; this is empiric treatment for pneumonia. This is a QT prolonging agent. It is better to stop this optional drug, let her continue the meds she needs for insomnia and depression which she takes at home. * restart Seroquel 200 mg HS and escitalopram 20 mg daily * repeat EKG in am, check QTc; now is 380 msec * wean O2; she is on 6 L/min, at home normally 2 L rest and 3 L/min exertion, sat was 87% when she arrived on room air, has been 91-98% on 6 L/min * Tobacco cessation stressed. Says she didn't smoke after October 12, ran out of cigarettes, however high CoHb level up, 3.5%. This only stays in the bloodstream an hour or so. History of Present Illness History of Present Illness Consult date: 10/15/23 Requesting physician: Néstor Bucio APRN Chief complaint: Pneumonia with COVID Narrative: patient was seen October 15, 2023 at 20:00 Room 256 NEW Consult: Adwoa galaviz a 57-year-old woman admitted with pneumonia, she is known to our service; last office visit was 08/23/2023. We see her for COPD, smoking, pulmonary hypertension with lupus; she was in Dr Barbara Grover's cardiology office September 29, office was a little hot and crowded. She developed a sore throat and high fevers starting October 2md; went to Urgent Care in [place] October 06, had a positive COVID test. Was prescribed Paxlovid, did not take due to worries about side effects. She went home, was told that she needed to wear a mask, avoid others, stay at home until 5 days elapsed and when she was not febrile for at least 24 hours. She was restarted on Paxlovid by her primary care doctor 2 days before comin in, got 4 pills in her prior to admission. She says that she ran out of cigarettes October 12, neither she nor her smoked that day. The next day, she felt worse with more shortness of breath, dingy discolored sputum, with increased O2 need. She had a chest x-ray showing airspace opacities in the lower lobes with elevated WBC, 23.4 k, 88% neutrophils; WBC lower October 14, now 20.2 k and increased left shift 92.5% neutrophils. She had elevated lactic acid 2.0, AST 44, CRP 21.8 normal is 1. she has normal renal function. She is now on 6 L/min with saturation 92% before the nebulized breathing treatment. Her treatment for COVID is remdesivir 200 mg IVPB x1 then 100 mg x4 for
[2023-10-15] MEDS: BENZOCAINE/MENTHOL (*BKC) 18 EA LOZENGE 1 LOZENGE PO (17:34)
[2023-10-15] MEDS: REMDESIVIR 100 MG/NS 250 ML 100 MG/250 ML BAG 250 MG IVPB (20:50)
[2023-10-16] VITALS (24 sets, daily range): BP systolic 142; BP diastolic 47; PULSE 64–99; RESP 16–20; TEMP 36.8; O2SAT 85–97
[2023-10-16] MEDS: IPRATROPIUM 0.5 MG/ALBUTEROL SULFATE 2.5 MG AMPUL.NEB 3 ML INHALATION ×3 (01:59→13:58)
[2023-10-16 05:53] LABS: Basophils Absolute Auto 0.1 K/mm3 (0.0-0.1); Basophils Percent Auto 0.3 % (0.2-1.2); Eosinophils Percent Auto 0.1 % (0-4.4); Hematocrit 34.1 % (37.0-47.0); Hemoglobin 10.4 g/dL (12.0-15.0); Immature Granulocyte Absolute 0.46 K/mm3 (0.00-0.031); Immature Granulocyte Percent A 2.4 % (0-0.5); Lymphocytes Absolute Auto 1.49 K/mm3 (0.9-3.2); Lymphocytes Percent Auto 7.9 % (18.3-44.2); Mean Corpuscular HGB Conc 30.5 g/dl (32-36); Mean Corpuscular Hemoglobin 29.6 pg (26-34); Mean Corpuscular Volume 97.2 fl (80-100); Neutrophils Absolute Auto 15.9 K/mm3 (1.3-6.7); Neutrophils Percent Auto 84.3 % (45.5-73.1); Platelet Count Result 310 k/mm3 (150-375); Red Blood Count 3.51 M/mm3 (4.2-5.4); Red Cell Distribution Width 14.3 % (11.5-14.5); White Blood Count 18.9 K/mm3 (4.5-10.0)
[2023-10-16 05:55] LABS: Alanine Aminotransferase 19 U/L (6-35); Alkaline Phosphatase 81 U/L (38-126); Anion Gap 3 mmol/L (4-12); Aspartate Amino Transferase 24 U/L (14-36); Bilirubin,Total 0.4 mg/dL (0.2-1.3); Blood Urea Nitrogen 14 mg/dL (7-17); Calcium 9.2 mg/dL (8.4-10.2); Carbon Dioxide 32 mmol/L (22-30); Chloride 105 mmol/L (98-107); Estimated CRCL calculation 77 ml/min; Estimated Glomerular Filt Rate > 60; Glucose 133 mg/dL (65-110); Magnesium 2.3 mg/dL (1.6-2.3); Potassium 3.5 mmol/L (3.4-5.0); Sodium 140 mmol/L (137-145)
[2023-10-16 06:11] LABS: CRP 14.1 mg/dL (<1.0)
[2023-10-16] MEDS: BUDESONIDE RESPULE NEB 0.5 MG/2 ML AMP INHALATION (07:54)
--- NOTE | 2023-10-16 08:06 | ECG_ITS ---
SEE SCANNED COPY FOR CONFIRMED REPORT. MTDD
[2023-10-16] MEDS: dexAMETHasone 2 MG TABLET 6 MG PO (08:45)
[2023-10-16] MEDS: PANTOPRAZOLE SODIUM IV 40 MG VIAL IV PUSH (08:46)
[2023-10-16] MEDS: rOPINIRole HCL 0.5 MG TABLET PO (08:46)
[2023-10-16] MEDS: ROSUVASTATIN 10 MG TABLET PO (08:46)
[2023-10-16] MEDS: ESCITALOPRAM OXALATE 10 MG TABLET 20 MG PO (08:46)
[2023-10-16] MEDS: guaiFENesin 12 HR 600 MG TABCR PO (08:46)
[2023-10-16] MEDS: LORATADINE 10 MG TABLET PO (08:46)
[2023-10-16] MEDS: HEPARIN SODIUM 5,000 UNITS/ML VIAL 5000 UNITS SUB-Q (08:46)
[2023-10-16] MEDS: HYDROXYCHLOROQUINE SULFATE 200 MG TABLET PO (08:46)
[2023-10-16] MEDS: mycophenolate mofetiL 250 MG CAPSULE 1500 MG PO (08:47)
--- NOTE | 2023-10-16 09:04 | PM.DS ---
DS: Admitting Diagnosis Discharge Date 10/16/2023 Admitting Diagnosis Sepsis, COVID, pneumonia DS: Discharge Diagnosis Discharge Diagnosis (1) Sepsis: Code(s): A41.9 - Sepsis, unspecified organism Status: Acute (2) COVID: Code(s): U07.1 - COVID-19 Status: Acute (3) Pneumonia: Code(s): J18.9 - Pneumonia, unspecified organism Status: Acute (4) Systemic lupus erythematosus: Qualifiers: Systemic lupus erythematosus type: unspecified Systemic lupus erythematosus organ involvement: unspecified Qualified Code(s): M32.9 - Systemic lupus erythematosus, unspecified Code(s): M32.9 - Systemic lupus erythematosus, unspecified Status: Acute (5) Acute and chronic respiratory failure with hypoxia: Code(s): J96.21 - Acute and chronic respiratory failure with hypoxia Status: Acute (6) Tobacco abuse: Code(s): Z72.0 - Tobacco use Status: Acute (7) On home oxygen therapy: Code(s): Z99.81 - Dependence on supplemental oxygen Status: Acute DS: Summary Hospital Course Hospital Course: this is a 57-year-old female patient admitted to the hospital due to dyspnea with a history of COPD on home oxygen with an increased oxygen demand. Patient tested positive for COVID couple days prior to admission did not take Paxlovid that was prescribed when she was diagnosed. She continued to worsen requiring turning up her oxygen as high as possible so she came to the emergency department. Patient was started on remdesivir admitted for further management of COVID with pneumonia. Patient treated for secondary bacterial infection as she met sepsis criteria. Pulmonology was consulted and provided recommendations for discharge medications. Patient was very insistent on being discharged stating that she felt claustrophobic closed in the room not able to get up independently due to high risk for fall. Status at Discharge Cognitive/behavioral status at discharge: awake alert oriented Functional status at discharge: independent ambulation Overall status at discharge: patient is progressing back to baseline Time Spent with Patient Time attestation: Total time spent providing and/or coordinating discharge services: 45 minutes Time spent: Greater than 30 minutes Exam Narrative: GENERAL: No acute distress, audible wheeze. Supplemental oxygen in place HEAD: Normocephalic, atraumatic. EYES: Conjunctivae normal, PERRLA and EOMI. CHEST: Rhonchi and wheezing auscultated throughout Cardio: borderline tachycardic regular rhythm EXTREMITIES: Normal range of motion. No edema. No clubbing or cyanosis SKIN: Warm, dry, no rash. No noted wounds NEURO: No focal deficits. Alert and oriented x3. moves all extremities well, and he ambulates with steady gait PSYCH: frustrated, mildly anxious DS: Data Data Completed and Pending Labs on day of discharge: Labs from last 24 hours 10/16/23 05:25 WBC 18.9 H RBC 3.51 L Hgb 10.4 L Hct 34.1 L MCV 97.2 MCH 29.6 MCHC 30.5 L RDW 14.3 Plt Count 310 MPV 11.0 H Immature Gran % (Auto) 2.4 H Neut % (Auto) 84.3 H Lymph % (Auto) 7.9 L [place] % (Auto) 5.0 Eos % (Auto) 0.1 Baso % (Auto) 0.3 Lymph # (Auto) 1.49 [place] # (Auto) 1.0 H Eos # (Auto) 0.0 Baso # (Auto) 0.1 Abs Immat Gran (auto) 0.46 H Absolute Neuts (auto) 15.9 H Absolute Nucleated RBC 0.000 Nucleated RBC % 0.0 Sodium 140 Potassium 3.5 Chloride 105 Carbon Dioxide 32 H Anion Gap 3 L BUN 14 Creatinine 0.80 Estim Creat Clear Calc 77 Estimated GFR > 60 Glucose 133 H Calcium 9.2 Magnesium 2.3 Total Bilirubin 0.4 AST 24 ALT 19 Alkaline Phosphatase 81 C-Reactive Protein 14.1 H Total Protein 6.0 L Albumin 3.0 L Preliminary micro results at discharge 10/14/23 10:07 Blood Culture - Preliminary Blood 10/14/23 09:56 Blood Culture - Preliminary Blood Discharge Plan Discharge Attending phys
--- NOTE | 2023-10-16 12:32 | PM.PNPUL ---
Progress Note: A&P Assessment and Plan (1) Acute and chronic respiratory failure with hypoxia: Code(s): J96.21 - Acute and chronic respiratory failure with hypoxia Status: Acute Assessment and Plan: O2 requirement was higher at admission; she had mild increased in carboxyhemoglobin on her ABG, room air = pH 7.40, pCO2 32.6, pO2 54.5, HC03 19.8, saturation 88.8%, carboxyhemoglobin 3.5, upper limit of normal is 2.0. She does not retain CO2, good marker. She has increased inflammatory markers for COVID, elevated CRP, elevated borderline lactic acid and AST. She had a (+) test October 06, worsened with admission October however could smoke until yesterday. She is on 6 L/min, saturation is higher than necessary, and this could be weaned. Wean today. (2) COVID: Code(s): U07.1 - COVID-19 Status: Acute Assessment and Plan: (+) at Urgent Care in [place] October 06, got Paxlovid, did not take after reading side effects, her primary sent it again, she took 2 days of it before coming here, now on remdesivir, dexamethasone; going home on doxycycline hycalte 100 mg b.i.d for secondary bacterial infection post COVID. (3) Pneumonia: Code(s): J18.9 - Pneumonia, unspecified organism Status: Acute Assessment and Plan: Pathogen not identified; she took 2 days of Paxlovid before arrival. She will probably not have a pathogen identified. She had aan IV dose of ceftriaxone today, stopped azithromycin, and can start doxycycline hyclate 100 mg b.i.d x 5 days at discharge. Plan plan: * Home O2 evaluation today * QT interval today is even smaller, on her usual meds, Seroquel 200 mg and escitalopram 20 mg , QT 318/QTc 351 msec. insomnia and depression which she takes at home. * Continue baseline controller meds; she said that Yupelri (revafenacin 175 mg) was close to $300 a month, could not afford. Will stop Yupelri and start ipratropium 2.5 mg t.i.d; can be used up to 4 times a day. DISCHARGE MEDS to go home: nebulizer meds 1. arformoterol (Brovana) 2 ml b.i.d. 2. budesonide 0.5 mg b.i.d 3. ipratropium 2.5 mg t.i.d. instead of Yupelri which is expensive 4. albuterol 2.5 mg/3 ml once a day, patient can decide when to take it 5. prednisone taper 6. doxycycline hyclate 100 mg b.i.d. for 5 days; first dose here at 2:30 pm, and 9 doses after discharge. Stop Yupelri as a home med. Follow up in pulmonary office in 3-4 weeks. * Tobacco cessation stressed. Avoid secondhand smoke. Written information given, pages from [employer]; discussed with patient 5-7 minutes. Says she didn't smoke after October 12, ran out of cigarettes, however high CoHb level up, 3.5%. This only stays in the bloodstream an hour or so. Going home will trigger desire to smoke. Her quit date is October 13. This is the day she was admitted to the hospital. Stopping smoking is the most important choice you can make for your health. There is a financial cost, as well as the impact on your health, health of family members and your pets. We recommend picking a quit date, eliminating tobacco from your house, finding alternative activities when you have a craving, and knowing that a craving lasts 5-6 minutes. Nicotine replacement therapy can be helpful, including patches, lozenges, gum and inhalers. 6-484-DFEXRGO is a toll free number with a live person who will talk with you about stopping smoking. This is the first of 7 pages for patient education. Discussed with Néstor Bucio APRN Subjective Date/time seen: 10/16/23 12:32 Interval history: hospital follow up 10/16/2023; Patient feels better, wants to go home today. She takes
[2023-10-16] MEDS: cefTRIAXone 2 GM/NS 100 ML 2 GM/100 ML BAG IVPB (12:47)
--- NOTE | 2023-10-16 14:00 | PCRCNOTE ---
This RT notified the RN, Giancarlo OTOOLE and Dr. Coley of Home O2 Eval results. Patient qualified for 3L NC at rest and 6L NC with activity.
[2023-10-16] MEDS: DOXYCYCLINE HYCLATE 100 MG TABLET PO (15:22)
== END 2023-10-16 15:30 | disposition home or self-care (01) | DRG 871 ==
LOC: ANHED 13:20 → ANH2MED 16:54 → ANH3MEDSUR 10-19 11:21
PROVIDERS: Nurse Practitioner; Student in an Organized Health Care Education/Training Program; Admitting Provider Student in an Organized Health Care Education/Training Program; Emergency Provider Nurse Practitioner Family; PCP Emergency Medicine; Visit Provider Internal Medicine
DX: A41.89 Other specified sepsis (principal); J12.82 Pneumonia due to coronavirus disease 2019; U07.1 COVID-19; J96.21 Acute and chronic respiratory failure with hypoxia; J44.0 Chronic obstructive pulmonary disease with (acute) lower respiratory infection; A49.9 Bacterial infection, unspecified; M32.9 Systemic lupus erythematosus, unspecified; F32.A Depression, unspecified; Z96.659 Presence of unspecified artificial knee joint; F17.210 Nicotine dependence, cigarettes, uncomplicated; Z99.81 Dependence on supplemental oxygen; Z90.710 Acquired absence of both cervix and uterus
CPT/HCPCS: 36415; 71045; 80053; 81001; 83605; 83735; 85025; 86140; 87040; 87070; 87205; 87641; 93005; 94618; 94640; 94667; 96375; 99285; A9270; C9113; J0248; J0456; J0696; J1100; J1644; J7120; J7517; J8540

== ENCOUNTER 2024-03-20 10:03 | Outpatient (CLI) | payer MEDICARE, SELFPAY ==
--- NOTE | ~2024-03-20 | CT_ITS ---
CT Scan of the Chest without Contrast: Clinical Indication: Lung cancer screening, nicotine dependence Technique: Contiguous sections were acquired throughout the chest without intravenous contrast. Dose reduction technique was used on this scan by utilizing automated exposure control and iterative recon struction technique. The dose-length product (DLP) was 1229.39 mGy-cm. COMPARISON: 03/12/2023 Findings: There is no evidence of any significant mediastinal, hilar or axillary lymphadenopathy. Aberrant righ t subclavian artery noted. There is no evidence of pleural or pericardial effusion. Stable subcentimeter perifissural nodule in the posterior aspect of the left upper lobe (axial image 41). There is probable atelectasis and/or scarring in the inferior right upper lobe and right middle lobe. Images through the upper abdomen reveal no abnormalities. Impression: Lung RADS 2: Benign appearance. 12 month follow-up screening CT advised. Reviewed, dictated and finalized at [facility]. Impression: Lung RADS 2: Benign appearance. 12 month follow-up screening CT advised.
== END 2024-03-20 10:04 | disposition home or self-care (01) ==
LOC: ANHIMG 10:07
PROVIDERS: PCP Emergency Medicine; Visit Provider Internal Medicine Critical Care Medicine
DX: Z12.2 Encounter for screening for malignant neoplasm of respiratory organs (principal); F17.210 Nicotine dependence, cigarettes, uncomplicated; H92.03 Otalgia, bilateral
CPT/HCPCS: 71271

== ENCOUNTER 2024-09-25 13:41 | Outpatient (CLI) | payer MEDICARE, SELFPAY ==
--- NOTE | ~2024-09-25 | MM_ITS ---
EXAMINATION: MM screening [facility] BI w elizabeth HISTORY: Screening TECHNIQUE: Craniocaudal and mediolateral oblique 3-D tomosynthesis images were obtained and synthetic 2-D images were generated. CAD analysis was submitted and interpreted. COMPARISON: 02/19/2023 and dating back to 07/29/2017 BREAST PARENCHYMAL COMPOSITION: There are scattered areas of fibroglandular density. FINDINGS: Bulky calcifications are detected bilaterally, stable and benign in appearance. Stable parenchymal pattern without suspicious microcalcifications, architectural distortion, discrete masses or significant asymmetry. IMPRESSION: 1. No mammographic evidence of malignancy. 2. Recommend routine screening mammography in one year. BI-RADS Category 2: Benign finding(s). Reviewed, dictated and finalized at location A.
== END 2024-09-25 13:42 | disposition home or self-care (01) ==
LOC: MICIMG 13:41
PROVIDERS: PCP Emergency Medicine; Visit Provider Emergency Medicine
DX: Z12.31 Encounter for screening mammogram for malignant neoplasm of breast (principal)
CPT/HCPCS: 77063; 77067

== ENCOUNTER 2024-10-04 09:50 | Outpatient (CLI) | payer MEDICARE, SELFPAY ==
--- OUTSIDE RECORDS SUMMARY | 2024-10-04 10:47 | XMS_ITS | Referral Summary ---
Author Organization [facility] [address] Address [address] [place] [address] Phone Care Team Providers Care Patient Assessment Coordinator Name Role Phone Ananth Krishnan MD Primary Care Provider [phone] Lobito Connolly MD Unavailable [phone] Barbara Grover MD Unavailable Hetal Mclean Unavailable [phone] Rell Smith MD Unavailable [phone] Jeffry Tay MD Unavailable [phone] Encounters Date Type Department Care Team Description 09/25/2024 11:30 AM CDT Procedure visit [facility] [address] [place] [address] [address] [id number] Rell Smith MD Chronic migraine without aura without status migrainosus, not intractable 09/20/2024 Telephone [facility] [address] [place] [phone] Dolores Reeves 09/20/2024 2:15 PM CDT Office Visit [facility] [address] [place] [phone] Rell Jacobs PA 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) (Primary Dx); Fibromyalgia; Chronic obstructive pulmonary disease, unspecified COPD type (HCC); Chronic pain of both knees; Encounter for long-term (current) use of medications 09/06/2024 Results Follow-Up [facility] [address] [place] [phone] Rell Jacobs PA from Last 3 Months Allergies Active Allergy Reactions Criticality Noted Date Comments Bupropion Hives High 03/16/2013 , Hylan G-F 20 Swelling Medium Levofloxacin Palpitations Low 09/18/2019 Heart racing, SOB Linezolid Hives,Other (See comments) Medium 6 unknown Medications albuterol HFA (VENTOLIN HFA) 90 mcg/actuation inhaler inhale 3 puff by INHALATION route every 4 - 6 hours as needed 0 Inhaler 0 015 Active Additional Information Patient taking differently: 2 puff inhalation 2 times daily PRN, Indications: Chronic Obstructive Pulmonary Disease, Reported on 09/25/2024 fluticasone-cam anterol (BREO ELLIPTA) 100-25 mcg/dose blister with device inhale 1 puff by inhalation route every day at the same time each day 0 0 015 Active Additional Information Patient taking differently: 1 puff inhalation Daily with lunch, Indications: Bronchospasm Prevention with COPD, Reported on 09/25/2024 escitalopram (LEXAPRO) 20 mg tablet take 1 tablet by oral route every day 0 0 015 Active Additional Information Patient taking differently:20 mgoral Nightly, Indications: Anxiety with Depression, Reported on 09/25/2024 fluticasone (FLONASE ALLERGY RELIEF) 50 mcg/actuation nasal spray 0 spray 0 015 Active Additional Information Patient taking differently: each nostril 2 times daily PRN, Indications: Allergic Rhinitis, Reported on 09/25/2024 HYDROcodone-jaki taminophen (LORCET PLUS) 10-325 mg per tablet take 1 tablet by oral route 4 times every day as needed for pain 0 0 013 Active Additional Information Patient taking differently: 1 tablet Every 4 hours PRN, Indications: Pain, Reported on 09/25/2024 ergocalciferol (VITAMIN D2) 50,000 unit capsule take 1 capsule by oral route every week 0 0 013 Active Additional Information Patient taking differently: oral Weekly, Every wednesday, Indications: on Wednesday, Informant: Self, Reported on 09/25/2024 omeprazole (PriLOSEC) 20 mg capsuleIndicati ons:Stress Ulcer Prophylaxis Take 1 capsule (20 mg total) by mouth every morning 018 Active QUEtiapine (SEROquel) 200 mg tabletIndicatio ns:sleep Take 1 tablet (200 mg total) by mouth nightly 3 018 Active onabotulinumtox in A (BOTOX) 100 unit recon solnIndications :Migraine Prevention EVERY 3 MONTHS Acti ve fluocinonide 0.1 % creamIndication s:Skin Inflammation Apply topically 2 (two) times a day. Active clobetasol (OLUX) 0.05 % topical foamIndications :Skin Inflammation Apply topically 2 (two) times a day. Active oxygenIndicatio ns:Dyspnea,for sleep Administer 2 L/min into each nostril as needed. Active rosuvastatin (CRESTOR) 10 mg tabletIndicatio ns:hyperlipidem ia Take 1 tablet (10 mg total) by mouth nightly Active loratadine (CLARITIN) 10 mg tabletIndicatio ns:Allergic Rhinitis Take 1 tablet (10 mg total) by mouth nightly 020 Active rOPINIRole (REQUIP) 0.5 mg tablet Take 1 tablet (0.5 mg total) by mouth nightly 023 Active SUMAtriptan (IMITREX) 100 mg tablet Take 1 tablet (100 mg total) by mouth every 2 (two) hours as needed for migraine No more than 2 tablets in 24 hours. 9 tablet 11 023 Active Entresto 24-26 mg tablet Take 1 tablet by mouth 2 (two) times a day Active carisoprodoL (SOMA) 350 mg tablet Take 1 tablet (350 mg total) by mouth 3 (three) times a day as needed for muscle spasms 84 tablet 3 024 Active mycophenolate mofetil (CELLCEPT) 500 mg tablet Take 2 tablets (1,000 mg total) by mouth 2 (two) times a day 360 tablet 025 Active pregabalin (LYRICA) 150 mg capsule TAKE 1 CAPSULE BY MOUTH TWICE A DAY 60 capsule 025 Active pregabalin (LYRICA) 150 mg capsule TAKE 1 CAPSULE BY MOUTH TWICE A DAY 60 capsule 2 024 2024 Discontinued mycophenolate mofetil (CELLCEPT) 500 mg tablet TAKE 2 TABLETS BY MOUTH TWICE A DAY 360 tablet 024 2024 Discontinued(R eorder) hydroxychloroqu ine (PLAQUENIL) 200 mg tablet TAKE 1 TABLET BY MOUTH TWICE A DAY 60 tablet 2024 Discontinued Hospital, Clinic, or Other Facility Administered Medication Ordered Dose Route Frequency Start Date End Date Status onabotulinumtoxin A (BOTOX) 200 unit injection 200 UnitsIndications:Chronic migraine without aura without status migrainosus, not intractable 200 Units OTHER Once 09/25/2024 09/25/2024 Ended Active Problems Problem Noted Date Diagnosed Date Muscle cramps 08/14/2022 Assessment & Plan (08/14/2022 3:18 PM SHOT PACKER): Recommended increased fluids and electrolytes. Will check magnesium. Chronic right shoulder pain 05/26/2021 Complete tear of right rotator cuff 05/26/2021 Chronic pain of both shoulders 01/21/2021 Assessment & Plan (07/30/2021 3:06 PM SHOT PACKER): Had recent MRI that displayed right shoulder rotator cuff tear. Surgeon would like to defer surgery if possible. Is scheduled for intra-articular right shoulder injection on Wednesday. Assessment & Plan (01/21/2021 3:09 PM CDT): Since last visit, he has noted right shoulder pain with recent diagnosis right rotator cuff tear, which she is scheduling for surgery for this. She has also noticed increased pain in the left shoulder, which is also being evaluated by ortho. Tendonitis, Achilles, left 08/01/2020 Achilles tendon pain 07/29/2020 Assessment & Plan (10/16/2020 1:48 PM CDT): Saw Podiatry. Given exercise sheet with improvement in symptoms. Assessment & Plan (07/29/2020 4:37 PM SHOT PACKER): She is scheduled for further evaluation with Podiatry on . Rash 03/29/2020 Assessment & Plan (03/29/2020 3:07 PM CDT): Annular plaque on the R elbow without scale. Concern for possible ring worm vs pso. Scheduled to see derm next week for further evaluation. Neck pain 11/28/2019 Overview (12/01/2019): X-ray C-spine 11/22/2019: Mild cervical spondylosis Assessment & Plan (01/21/2021 3:08 PM CDT): X-ray C-spine 11/22/2019: Mild cervical spondylosis She did have a recent C-spine MRI due to persistent neck pain with intermittent radicular symptoms. She is scheduling to see neurosurgery for further evaluation. Assessment & Plan (11/28/2019 2:22 PM CDT): Obtain baseline xray and send to PT. Memory loss 07/26/2019 Boil 03/23/2019 Assessment & Plan (03/23/2019 4:40 PM CDT): L axilla. Sample sent for culture. Will prescribe doxy 100 bid x7 days. Will hold benlysta and cellcept until off antibiotics and symptoms resolved. Fu at scheduled appt. Sooner if needed. Seen with Dr. Grissom. Essential (primary) hypertension 12/27/2018 CKD (chronic kidney disease) 11/25/2018 Chronic pain of both knees 11/07/2018 Overview (12/05/2021): Pain in the mariaelena knees. Hx of R TKA, as well as oa in the knees. Prior injection in the knee had a reaction. Left knee x-ray 08/29/2021: Tricompartmental OA with medial compartment predominance, which is [id number] severity Assessment & Plan (09/20/2024 2:32 PM CDT): Left knee x-ray 08/29/2021: Tricompartmental OA with medial compartment predominance, which is itgh-[id number] severity Denies significant knee discomfort since last visit. Has had previous right TKA. Had previously followed up with knee surgeon to discuss her persistent right knee complaints and he noted that her total knee arthroplasty was in place without concerning findings at that time. She had previously gone to physical therapy and has at home physical therapy exercises. Continue to follow with Orthopedics and received intermittent intra-articular steroid injections in the left knee. Does require Soma 350 mg q.h.s. p.r.n. to help her sleep at night with knee discomfort. She is trying to avoid surgery. Assessment & Plan (06/15/2024 3:12 PM SHOT PACKER): Left knee x-ray 08/29/2021: Tricompartmental OA with medial compartment predominance, which is [id number] severity Continues to have persistent chronic pain in the bilateral knees (L>R) (prior R TKA). Had previously followed up with knee surgeon to discuss her persistent right knee complaints and he noted that her total knee arthroplasty was in place without concerning findings at that time. She had previously gone to physical therapy and has at home physical therapy exercises. Continue to follow with Orthopedics and received intermittent intra-articular steroid injections in the left knee. Does require Soma 350 mg q.h.s. p.r.n. to help her sleep at night with knee discomfort. She is trying to avoid surgery. Assessment & Plan (08/18/2023 3:52 PM SHOT PACKER): Left knee x-ray 08/29/2021: Tricompartmental OA with medial compartment predominance, which is wjtl-rj-[id number] severity Continues to have persistent chronic pain in the bilateral knees (L>R) (prior R TKA). Had previously followed up with knee surgeon to discuss her persistent right knee complaints and he noted that her total knee arthroplasty was in place without concerning findings at that time. She had previously gone to physical therapy and has at home physical therapy exercises. Continue to follow with Orthopedics regarding intra-articular steroid injections. Assessment & Plan (04/29/2023 3:40 PM CDT): Left knee x-ray 08/29/2021: Tricompartmental OA with medial compartment predominance, which is oeem-[id number]-[id number] severity Continues to have persistent chronic pain in the bilateral knees (L>R) (prior R TKA). Had previously followed up with knee surgeon to discuss her persistent right knee complaints and he noted that her total knee arthroplasty was in place without concerning findings at that time. She had previously gone to physical therapy and has at home physical therapy exercise. Recommended follow-up with knee Orthopedics regarding this. Assessment & Plan (01/11/2023 3:13 PM CDT): Left knee x-ray 08/29/2021: Tricompartmental OA with medial compartment predominance, which is [id number] severity Continues to have persistent chronic pain in the bilateral knees (L>R) (prior R TKA). Had previously followed up with knee surgeon to discuss her persistent right knee complaints and he noted that her total knee arthroplasty was in place without concerning findings at that time. She had previously gone to physical therapy and has at home physical therapy exercise. Again, discussed scheduling with orthopedics for further evaluation. Assessment & Plan (08/14/2022 3:17 PM SHOT PACKER): Left knee x-ray 08/29/2021: Tricompartmental OA with medial compartment predominance, which is icby-oq-nawoftvs severity Continues to have persistent chronic pain in the bilateral knees (L>R) (prior R TKA). Had previously followed up with knee surgeon to discuss her persistent right knee complaints and he noted that her total knee arthroplasty was in place without concerning findings at that time. She had previously gone to physical therapy and continues at home physical therapy exercise. Have discussed scheduling with orthopedics for further evaluation, which she plans to do. Assessment & Plan (03/10/2022 2:21 PM CDT): Left knee x-ray 08/29/2021: Tricompartmental OA with medial compartment predominance, which is lxbq-fq-rhilmwle severity Continues to have persistent chronic pain in the bilateral knees (L>R) (prior R TKA). Has followed up with knee surgeon to discuss her persistent right knee complaints and he noted that her total knee arthroplasty was in place without concerning findings at that time. She had previously gone to physical therapy and continues at home physical therapy exercise. Will check does with Kenalog IM injection given today. She is to notify us if left knee symptoms persistent can order a left knee ultrasound- guided Kenalog intra-articular injection. Have also discussed scheduling with orthopedics for further evaluation, which she plans to do. Assessment & Plan (12/04/2021 3:43 PM CDT): Continues to have persistent chronic pain in the bilateral knees (L>R) (prior R TKA). Has followed up with knee surgeon to discuss her persistent right knee complaints and he noted that her total knee arthroplasty was in place without concerning findings at that time. She had previously gone to physical therapy and continues at home physical therapy exercise. She did obtain bilateral knee x-rays at [facility] after last visit, although we did not receive these. Will track down these results. She defers a Kenalog intra-articular left knee injection at this time. Could reconsider this symptoms worsened. Assessment & Plan (07/30/2021 3:08 PM SHOT PACKER): Has had some persistent chronic pain in the bilateral knees (L>R) (prior R TKA). Previous went to PT and continues at home PT exercises. Will obtain updated imaging. Could consider L knee ultrasound-guided Kenalog injection depending on x-ray findings. Assessment & Plan (07/07/2019 2:52 PM SHOT PACKER): Pain in the bilateral knees does persist some degree which is exacerbated with activity. History of right TKA, as well as OA in the bilateral knees. Could not tolerate prior injections. Continue at home PT exercises. Symptoms remain stable. Discussed return to PT, which patient defers at this time. Could reconsider if symptoms worsen. Assessment & Plan (05/24/2019 2:44 PM SHOT PACKER): Pain in the bilateral knees does persist some degree which is exacerbated with activity. History of right TKA, as well as OA in the bilateral knees. Could not tolerate prior injections. Continue at home PT exercises. Symptoms remain stable. Assessment & Plan (03/23/2019 4:42 PM CDT): Pain in the bilateral knees does persist some degree which is exacerbated with activity. History of right TKA, as well as OA in the bilateral knees. Could not tolerate prior injections. Continue at home PT exercises. Symptoms stable at present. Assessment & Plan (01/23/2019 1:49 PM CDT): Pain in the bilateral knees does persist some degree which is exacerbated with activity. History of right TKA, as well as OA in the bilateral knees. Could not tolerate prior injections. Continue at home PT exercises. Assessment & Plan (12/06/2018 9:27 AM CDT): Continues to note some pain in the bilateral knees, which is exacerbated with activity. History of right TKA, as well as OA in the knees. Has been seen by Orthopedics. Unable to tolerate prior injections. Likely OA and SLE contributing to her symptoms. Does have at home exercises from PT in the past. Discussed proceed with these exercises at this time. Assessment & Plan (11/07/2018 3:04 PM CDT): Continues to note some pain in the bilateral knees, which is exacerbated with activity. History of right TKA, as well as OA in the knees. Has been seen by Orthopedics. Unable to tolerate prior injections. Likely OA and SLE contributing to her symptoms. Does have at home exercises from PT in the past. Discussed proceed with these exercises at this time. Left leg swelling 11/07/2018 Assessment & Plan (11/07/2018 3:05 PM CDT): Recently dose of developed left lower extremity edema, which has improved over the past few days. Symptoms worsened at the end of the day. No tenderness or pain in the calf on exam. Will check left lower extremity ultrasound to ensure no DVT. Upper respiratory tract infection 10/05/2018 Assessment & Plan (05/24/2019 2:42 PM SHOT PACKER): Hx of recent URTI, as above. Completed 2nd antibiotic course last Wednesday with near full resolution of symptoms. Denies wheezing, cough, fever. Will obtain cxr, as above. If looks ok, ok to resume benlysta. Assessment & Plan (10/05/2018 2:03 PM CDT): Primary complaint today is new onset cough with productive yellow sputum, wheezing, headaches, as well as chills. Denies any fevers. Symptoms began this past Wednesday. Patient was placed on azithromycin 2 weeks prior due to cough/wheezing, which did resolve symptoms, although did develop return in symptoms. For this reason, will prescribe ciprofloxacin 500 mg b.i.d. x7 days. Discussed potential se, including tendon rupture. Obtain chest x-ray. If symptoms persist or worsen, advised to follow up with PCP. Bilateral hip pain 06/30/2018 Assessment & Plan (06/30/2018 3:15 PM SHOT PACKER): Patient notes worsening pain symptoms in the bilateral external hips (left greater than right ). Worsened with lying on at night. TTP over the bilateral greater trochanters (left greater than right ). Suspicious for greater trochanteric pain syndrome. Patient given exercises to do at home. If symptoms persist, consider PT referral versus Kenalog bursa injection. Ptosis, bilateral 06/01/2018 Overview (06/01/2018): Added automatically from request for surgery [id number] Atherosclerotic heart diseas e of [place] coronary artery without angina pectoris 06/02/2017 Chronic migraine without aur a without status migrainosus, not intractable 05/04/2017 Left foot drop 05/04/2017 Assessment & Plan (05/26/2017 3:18 PM SHOT PACKER): Seeing neurologist and has had ncts/emg as well as lspine mri. Will f/u with neuro to get results. If no need for surgery, then will reinfuse her benlysta. Morbid obesity with BMI of 40.0-44.9, adult 04/06 Right hip pain 12/22/2016 Assessment & Plan (12/22/2016 2:17 PM CDT): S/p fall last well. Will check xrays and refer to physical therapy. Cannot take nsaids. con't with hydrocodone from pcp. Con't with prn soma as well. If PT does not help, then will check MRI of rt hip. Encounter for long-term (current) use of medicat ions 12/21/2016 Overview (10/07/2018): TB neg 10/07/2018 Stopped Plaquenil due to recommendations by Ophthalmology. Assessment & Plan (09/20/2024 2:33 PM CDT): TB neg 12/2019 Stopped Plaquenil in the past due to recommendations by Ophthalmology, although eventually was noted that she could resume HCQ therapy. Continue to follow with opthalmology. On CellCept 1500 mg BID, hcq 200 BID, Benlysta infusions Encouraged smoking cessation Receive flu vaccine in office today. Assessment & Plan (06/15/2024 3:12 PM SHOT PACKER): TB neg 12/2019 Stopped Plaquenil in the past due to recommendations by Ophthalmology, although eventually was noted that she could resume HCQ therapy. Continue to follow with opthalmology. On CellCept 1500 mg BID, hcq 200 BID, Benlysta infusions Encouraged smoking cessation Receive flu vaccine in office today. Assessment & Plan (02/23/2024 2:31 PM CDT): TB neg 12/2019 Stopped Plaquenil in the past due to recommendations by Ophthalmology, although eventually was noted that she could resume HCQ therapy. Continue to follow with opthalmology. On CellCept 1500 mg BID, hcq 200 BID, Benlysta infusions Encouraged smoking cessation Assessment & Plan (08/18/2023 3:52 PM SHOT PACKER): TB neg 12/2019 Stopped Plaquenil in the past due to recommendations by Ophthalmology, although eventually was noted that she could resume HCQ therapy. Continue to follow with opthalmology. On CellCept 1500 mg BID, hcq 200 BID, Benlysta infusions Encouraged smoking cessation Assessment & Plan (04/29/2023 3:39 PM CDT): TB neg 12/2019 Stopped Plaquenil in the past due to recommendations by Ophthalmology, although eventually was noted that she could resume HCQ therapy. Continue to follow with opthalmology. On CellCept 1500 mg BID, hcq 200 BID, Benlysta infusions Encouraged smoking cessation Assessment & Plan (01/11/2023 3:13 PM CDT): TB neg 12/2019 Stopped Plaquenil in the past due to recommendations by Ophthalmology, although eventually was noted that she could resume HCQ therapy. Continue to follow with opthalmology. On CellCept 1500 mg BID, hcq 200 BID, Benlysta infusions Encouraged smoking cessation Assessment & Plan (08/14/2022 3:16 PM SHOT PACKER): TB neg 12/2019 Stopped Plaquenil in the past due to recommendations by Ophthalmology, although eventually was noted that she could resume HCQ therapy. Continue to follow with opthalmology. On CellCept 1500 mg BID, hcq 200 BID, Benlysta infusions Assessment & Plan (03/10/2022 2:19 PM CDT): TB neg 12/2019 Stopped Plaquenil in the past due to recommendations by Ophthalmology, although eventually was noted that she could resume HCQ therapy. Continue to follow with opthalmology. On CellCept 1500 mg BID, hcq 200 BID, Benlysta infusions Assessment & Plan (12/04/2021 3:41 PM CDT): TB neg 12/2019 Stopped Plaquenil in the past due to recommendations by Ophthalmology, although eventually was noted that she could resume HCQ therapy. Continue to follow with opthalmology. On CellCept 1500 mg BID, hcq 200 BID, Benlysta infusions Assessment & Plan (07/30/2021 3:06 PM SHOT PACKER): TB neg 12/2019 Stopped Plaquenil in the past due to recommendations by Ophthalmology, although eventually was noted that she could resume HCQ therapy. Continue to follow with opthalmology. On CellCept 1500 mg BID, hcq 200 BID, Benlysta infusions Given flu shot today Assessment & Plan (01/21/2021 3:07 PM CDT): TB neg 12/2019 Stopped Plaquenil in the past due to recommendations by Ophthalmology, although eventually was noted that she could resume HCQ therapy. Continue to follow with opthalmology. On CellCept 1500 mg BID, hcq 200 BID, Benlysta infusions Given flu shot today Assessment & Plan (10/16/2020 1:48 PM CDT): TB neg 12/2019 Stopped Plaquenil in the past due to recommendations by Ophthalmology, although eventually was noted that she could resume HCQ therapy. Continue to follow with opthalmology. On CellCept 1500 mg BID, hcq 200 BID, Benlysta infusions Given flu shot today Assessment & Plan (07/29/2020 4:36 PM SHOT PACKER): TB neg 12/2019 Stopped Plaquenil in the past due to recommendations by Ophthalmology, although eventually was noted that she could resume HCQ therapy. Continue to follow with opthalmology. On CellCept 1500 mg BID, hcq 200 BID, Benlysta infusions Given flu shot today Assessment & Plan (03/29/2020 4:06 PM CDT): TB neg 12/2019 Stopped Plaquenil in the past due to recommendations by Ophthalmology, although eventually was noted that she could resume HCQ therapy. Continue to follow with opthalmology. On CellCept 1500 mg BID, hcq 200 BID, Benlysta infusions Given flu shot today Assessment & Plan (12/25/2019 2:31 PM CDT): TB neg 12/2019 Stopped Plaquenil in the past due to recommendations by Ophthalmology, although eventually was noted that she could resume HCQ therapy. Continue to follow with opthalmology. On CellCept 1500 mg BID, hcq 200 BID, Benlysta infusions Assessment & Plan (11/28/2019 2:20 PM CDT): TB neg 10/2018, recheck with next lab work Stopped Plaquenil in the past due to recommendations by Ophthalmology, although eventually was noted that she could resume HCQ therapy. Continue to follow with opthalmology. On CellCept 1500 mg BID, hcq 200 BID, Benlysta infusions Assessment & Plan (09/20/2019 2:34 PM CDT): TB neg 10/2018 Stopped Plaquenil in the past due to recommendations by Ophthalmology, although eventually was noted that she could resume HCQ therapy. Continue to follow with opthalmology. On CellCept 1000 mg BID, hcq 200 BID, Benlysta infusions Assessment & Plan (07/07/2019 2:53 PM SHOT PACKER): TB neg 10/2018 Stopped Plaquenil in the past due to recommendations by Ophthalmology, although eventually was noted that she could resume HCQ therapy. Continue to follow with opthalmology. On CellCept 1000 mg BID, hcq 200 BID, Benlysta infusions Assessment & Plan (05/24/2019 2:43 PM SHOT PACKER): TB neg 10/2018 Stopped Plaquenil in the past due to recommendations by Ophthalmology, although eventually was noted that she could resume HCQ therapy. Continue to follow with opthalmology. On CellCept 1000 mg BID, hcq 200 BID, Benlysta infusions Assessment & Plan (03/23/2019 4:42 PM CDT): TB neg 10/2018 Stopped Plaquenil in the past due to recommendations by Ophthalmology, although recently was noted that she could resume HCQ therapy. Continue to follow with opthalmology. On CellCept 1000 mg BID, hcq 200 BID, Benlysta infusions Assessment & Plan (01/23/2019 1:49 PM CDT): TB neg 10/2018 Stopped Plaquenil in the past due to recommendations by Ophthalmology, although recently was noted that she could resume HCQ therapy. Continue to follow with opthalmology. On CellCept 1000 mg BID, hcq 200 BID, Benlysta infusions Assessment & Plan (12/06/2018 9:27 AM CDT): TB neg 10/2018 Stopped Plaquenil in the past due to recommendations by Ophthalmology, although recently was noted that she could resume HCQ therapy. Continue to follow with opthalmology. On CellCept 1000 mg BID, hcq 200 BID, Benlysta infusions Assessment & Plan (11/07/2018 3:04 PM CDT): TB neg 10/2017, will recheck today. Stopped Plaquenil in the past due to recommendations by Ophthalmology, although recently was noted that she could resume HCQ therapy. Continue to follow with opthalmology. On CellCept 1000 mg b.i.d., hcq 200 bid, Benlysta infusions Assessment & Plan (10/05/2018 2:04 PM CDT): TB neg 10/2017, will recheck today. Stopped Plaquenil in the past due to recommendations by Ophthalmology, although recently was noted that she could resume HCQ therapy. Continue to follow with opthalmology. On CellCept 1000 mg b.i.d., hcq 200 bid, Benlysta infusions Assessment & Plan (08/16/2018 4:03 PM SHOT PACKER): TB neg 10/2017 Stopped Plaquenil in the past due to recommendations by Ophthalmology, although recently was noted that she could resume HCQ therapy. Continue to follow with opthalmology. On CellCept 1000 mg b.i.d., Benlysta infusions Assessment & Plan (06/30/2018 3:13 PM SHOT PACKER): TB neg 10/2017 Stopped Plaquenil due to recommendations by Ophthalmology. On CellCept 1000 mg b.i.d., Benlysta infusions Assessment & Plan (03/24/2018 1:28 PM CDT): TB neg 10/2017 Stopped Plaquenil due to recommendations by Ophthalmology. On CellCept 1000 mg b.i.d., Benlysta infusions Assessment & Plan (02/21/2018 1:31 PM CDT): QuantiFERON-10/2017 Stop Plaquenil due to recommendations by Ophthalmology. Will contact Ophthalmology discuss this further, as patient notes significantly worsened symptoms since stopping the medication. Assessment & Plan (07/23/2017 10:43 AM SHOT PACKER): Hepatitis neg 02/14. Quant gold neg 10/19. Assessment & Plan (05/26/2017 1:01 PM SHOT PACKER): Hepatitis neg 8/13. Quant gold neg 17. Assessment & Plan (03/30/2017 4:26 PM CDT): Hepatitis neg 8/13. Quant gold neg 17. Assessment & Plan (12/22/2016 2:16 PM CDT): con't with standing order for labs. Generalized anxiety disorder 09/16/2015 Hyperlipidemia 09/16/2015 Insomnia 08/20/2015 Major depressive disorder 06/07/2015 Overview (10/08/2016): Major depressive disorder Primary generalized hypertrophic osteoarthrosis 06/07/2015 Overview (10/08/2016): Idiopathic osteoarthritis Migraine 06/07/2015 Overview (10/08/2016): Migraine Low back pain 06/07/2015 Overview (10/08/2016): Low back pain Assessment & Plan (04/29/2023 3:41 PM CDT): Remains on Soma 350 mg t.i.d. p.r.n. along with hydrocodone per PCP. Unable to tolerate NSAIDs. Had seen pain management in the past and received epidural injections. She has deferred physical therapy. Have recommended follow up with the pain management for repeat injections, if symptoms worsen. Assessment & Plan (10/16/2020 1:48 PM CDT): Remains on Soma 350 mg t.i.d. p.r.n. along with hydrocodone per PCP. Has noted exacerbation of symptoms recently. Unable to tolerate NSAIDs. Had seen pain management in the past and received epidural injections. Defers PT at this time. Again, recommended following up with Pain Management for repeat injections, if symptoms persist. Assessment & Plan (07/29/2020 4:36 PM SHOT PACKER): Remains on Soma 350 mg t.i.d. p.r.n. along with hydrocodone per PCP. Has noted exacerbation of symptoms recently. Unable to tolerate NSAIDs. Had seen pain management in the past and received epidural injections. Defers PT at this time. Again, recommended following up with Pain Management for repeat injections, if symptoms persist. Assessment & Plan (11/28/2019 2:19 PM CDT): Remains on Soma 350 mg t.i.d. p.r.n. along with hydrocodone per PCP. Has noted exacerbation of symptoms recently. Unable to tolerate NSAIDs. Had seen pain management in the past and received epidural injections. Defers PT at this time. Recommended following up with Pain Management for repeat injections, if symptoms persist. Assessment & Plan (03/23/2019 4:41 PM CDT): Overall doing well with Soma 350 mg t.i.d. P.r.n. along with hydrocodone per PCP. Unable to tolerate NSAIDs. Assessment & Plan (01/23/2019 1:48 PM CDT): Overall doing well with Soma 350 mg t.i.d. P.r.n. along with hydrocodone per PCP. Unable to tolerate NSAIDs. Assessment & Plan (12/06/2018 9:28 AM CDT): Remains fairly well controlled. Continue Soma 350 mg TID prn. Continue hydrocodone per PCP. Unable to tolerate NSAIDs. Assessment & Plan (11/07/2018 3:02 PM CDT): Remains fairly well controlled. Continue Soma 350 mg t.i.d. P.r.n.. Continue hydrocodone per PCP. Unable to tolerate NSAIDs. Assessment & Plan (10/05/2018 2:00 PM CDT): Remains fairly well controlled with Soma 350 mg t.i.d. P.r.n.. Continue hydrocodone per PCP. Unable to tolerate NSAIDs. Assessment & Plan (08/16/2018 2:27 PM SHOT PACKER): Fairly well controlled with Soma 350 mg t.i.d. P.r.n.. Continue hydrocodone per PCP. Cannot tolerate NSAIDs. Assessment & Plan (06/30/2018 4:18 PM SHOT PACKER): Lower back pain and stiffness continues to be a significant complaint for patient. Will continue Soma 350 mg t.i.d. P.r.n.. Continue hydrocodone per pcp. Cannot tolerate nsaids. Chronic obstructive pulmonary disease 06/07/2015 Overview (10/08/2016): Chronic obstructive lung disease Assessment & Plan (09/20/2024 2:32 PM CDT): Discussed and encouraged smoking cessation. She does have plans to quit smoking. Assessment & Plan (06/15/2024 3:10 PM SHOT PACKER): Discussed and encouraged smoking cessation. She does have plans to quit smoking. Assessment & Plan (02/23/2024 2:32 PM CDT): Discussed and encouraged smoking cessation. Assessment & Plan (10/22/2017 1:51 PM CDT): Cont to smoke. Advised stopping. Morbid obesity 06/07/2015 Overview (10/08/2016): Morbid obesity Tobacco use 06/07/2015 Overview (10/08/2016): Tobacco user Systemic lupus erythematosus 06/07/2015 Overview (12/28/2019): Prior patient of [facility]. Joint arthralgias. No initial serologies for review. [facility] 12/28/2019: Negative On cellcept 1000 bid, hcq 200 bid, and benlysta infusions. Stopped Plaquenil due to recommendations by Ophthalmology. Per opthalmology note 07/21/2018, patient ok to resume HCQ On standing order for labs prior to infusions. Assessment & Plan (09/20/2024 2:31 PM CDT): CDAI 11. Overall, joints have remained fairly stable from last visit. Denies significant peripheral joint complaints at present and denies prolonged a.m. stiffness. We have avoided Benlysta and reduced her CellCept to her current dose due to numerous respiratory infections requiring frequent antibiotics/steroids. She notes that Nephrology, Dr. Bowman, had hopes that she would resume Benlysta. Upon review of her most recent labs, she has had persistently stable creatinine levels/GFR without proteinuria. She has not had a previous kidney biopsy. Will track down most recent office visit note from Dr. Bowman, nephrology, although do not see significant evidence to suggest lupus nephritis at this time. Given her frequent infection history, would like to continue to avoid Benlysta. Have recommended holding Plaquenil until eye exam is at been obtained. Otherwise, will continue CellCept 1000 mg b.i.d.. Have encouraged smoking cessation. Continue routine eye exams. Routine labs today. Follow-up 3 months. Sooner if needed. Assessment & Plan (06/15/2024 3:10 PM SHOT PACKER): CDAI 9. Overall, joints have remained fairly stable from last visit. Does note some mild increased discomfort/stiffness in the hands attributed to the colder weather with a.m. stiffness for 60 minutes. Few swollen and tender joints, as above. Have avoided Benlysta and reduced her CellCept to her current dose due to numerous for respiratory infections requiring frequent antibiotics/steroids. Do feel that her SLE is fairly well managed at this time, although most recent labs did show mildly low complement and mildly elevated CRP level. Will monitor this. Given the length of time that she is overdue for eye exams, will hold on Plaquenil at this time and can resume upon obtaining an eye exam, which was discussed today. Otherwise, will continue CellCept 1000 mg b.i.d.. Continue to avoid then this given frequent infections. She does have plans to quit smoking. Continue routine eye exams. Routine labs today. Follow-up 3 months. Sooner if needed. Assessment & Plan (02/23/2024 2:30 PM CDT): Adwoa was last seen 08/2023, was lost to follow-up. Has remained on CellCept 1000 mg b.i.d. and Plaquenil 200 mg b.i.d.. Have avoid Benlysta and reduce CellCept to her current dose due to numerous respiratory infections requiring frequent forced of a pneumonic/steroids. Since last visit, has noted increased generalized arthralgias, which she attributes to overuse from recent yd work. Has fairly diffuse tenderness on exam with minimal synovitis. Suspect that fibromyalgia contributing significantly to her chronic pain complaints. Will continue CellCept 1000 mg b.i.d. and Plaquenil 200 mg b.i.d.. Continue to avoid Benlysta given frequent infections. Continue routine eye exams. Routine labs today. Follow-up 3 months. Sooner if needed. Given her frequent infections, did discuss potential further decrease on CellCept given immunosuppression. She defers at this time and is aware of these risks. Assessment & Plan (08/18/2023 3:51 PM SHOT PACKER): Adwoa was last seen 04/29/2023, as was again lost to follow-up. Has had numerous respiratory infections requiring frequent courses of antibiotic/steroids. For this reason, has not received Benlysta in several months. Does continue to note some residual discomfort in the hands and shoulder girdle. Joint symptoms are exacerbated with activities without prolonged a.m. stiffness. Chronic cough and shortness breath with mild exertion secondary to her underlying COPD. No other recent systemic complaints. Few swollen joints on exam, as above. Given her frequent infections complicated by active smoking with COPD, will avoid Benlysta at this time. Will also reduce CellCept to 1000 mg b.i.d. given concerns for infection and will continue Plaquenil 200 mg b.i.d.. Continue routine eye exams. Routine labs today. Follow- up 3 months. Sooner if needed. Seen with Dr. Tay. Assessment & Plan (04/29/2023 3:38 PM CDT): CDAI 14. Overall, symptoms have remained fairly stable from last visit. Has some chronic discomfort in the MCP joints of the left hand along with joint pains in the L knee, lower back, shoulder girdle, and L ankle. Notes a.m. stiffness for few hours. Denies a time of day with worsened symptoms. Has few swollen joints in the hands, as above. Unfortunately additional medication options are limited. Do suspect osteoarthritis/mechanical causes and fibromyalgia are contributing to some of her general arthralgias. At present, will maintain on Plaquenil 200 mg b.i.d., CellCept 1500 mg b.i.d., as well as Benlysta infusions. Continue routine eye exams. Routine labs today. Follow-up 3 months. Sooner if needed. Seen with Dr. Grissom Assessment & Plan (01/11/2023 3:10 PM CDT): CDAI 20. Last seen 08/2022, as was again lost to follow-up. She continues to have issues with maintaining her monthly Benlysta infusions due to upper respiratory sickness and transportation issues. Her last 2 Benlysta infusions were on 12/28/2022 and 09/24/2022. Has continued to experience some joint complaints in the bilateral hands, left knee, shoulders, and lower back. A.m. stiffness for 2 hours. Has few swollen and tender joints in the bilateral hands, as above. Does not appear adequately controlled. Unfortunately, I do feel that her lack of consistent Benlysta infusions is likely contributing to this, which was discussed today. We did discuss potentially looking into Benlysta subcutaneous, which she defers at this time. Could reconsider this if infusions to continue to be an issue. Otherwise, will continue Plaquenil 200 mg b.i.d. and CellCept 1500 mg b.i.d.. Continue routine eye exams, which was discussed today. Routine labs today. Follow-up 3 months. Sooner if needed. Assessment & Plan (08/14/2022 3:16 PM SHOT PACKER): CDAI 8. Last seen 03/2022, as was lost to follow-up. She was overdue for her Benlysta infusions, although did receive this 2 days prior. Has had some chronic daily stiffness in the hands lasting throughout the day. With that said, her primary complaints today are discomfort across the shoulder girdle and in the bilateral knees (L>R)(prior R TKA), both of which I suspect is likely unrelated to her inflammatory arthritis. Has chronic cough/shortness of breath attributed to COPD with no other recent systemic complaints. Minimal synovitis on exam today. At this time, suspect that fibromyalgia/mechanical/degenerative causes or contributing to the majority of her residual pain complaints. Will continue Plaquenil 200 mg b.i.d., CellCept 1500 mg b.i.d., Benlysta infusions. Routine today. Follow-up 2 months. Sooner if needed Assessment & Plan (03/10/2022 2:19 PM CDT): Have been off Benlysta infusions for many months due to several health issues, including a hospitalization in October for COPD exacerbation followed by tooth abscess in November. Since last visit, has resumed Benlysta infusions x3 doses. Has been in a flare for the past 4 weeks with increased joint pain, stiffness in the bilateral hands with a.m. stiffness for 1-2 hours. Otherwise, has chronic bilateral knee pain (prior R TKA) and right shoulder pain following with ortho for these. Chronic shortness of breath attributed to COPD without other systemic complaints. Active synovitis, as above. Due to burden of disease, will administer kenalog 100 mg IM injection, in office, today. Patient was advised of the potential side effects of the medication, including but not limited to increased blood sugar, weight gain, avascular necrosis, glaucoma, cataracts, and/or osteoporosis. Will allow Benlysta more time to take effect give the month time with the medication. Continue Benlysta infusions. Otherwise, will continue Plaquenil 200 mg b.i.d., CellCept 1500 mg b.i.d.. Routine labs today. Follow-up 4 weeks. Sooner if needed. Assessment & Plan (12/04/2021 3:41 PM CDT): She received a Benlysta infusion on 10/14/2021. Unfortunately, is again overdue for Benlysta due to hospitalization in October for COPD exacerbation followed by a tooth abscess in November. Recently completed antibiotics for this and had tooth removal 2 days prior. Has some residual discomfort/stiffness in the hands and knees, although symptoms are fairly manageable. Denies any other recent systemic complaints. Will resume Benlysta infusions 2 weeks after her recent tooth removal procedure ensuring healing well without signs of infection. Otherwise, will continue Plaquenil 200 b.i.d., CellCept 1500 mg b.i.d.. Routine labs today. Follow-up 3 months. Sooner if needed. Assessment & Plan (07/30/2021 3:05 PM SHOT PACKER): Denies significant peripheral joint complaints since last visit. Has some chronic pain in the bilateral knees, right shoulder, which I suspect is more likely to mechanical causes. Denies other systemic complaints. Suspect SLE is adequately controlled. Will continue Plaquenil 200 mg b.i.d., CellCept 1500 mg b.i.d., Benlysta IV infusions. Routine labs today. Follow-up 3 months. Sooner if needed. Assessment & Plan (01/21/2021 3:07 PM CDT): CDAI 10. She was recently diagnosed with a torn right rotator cuff has also noted significant increased pain in the left shoulder, which she is following with Orthopedics. Suspect a shoulder complaints are unrelated to her SLE and she is scheduling for a right shoulder surgery in the near future. She is currently on a prednisone taper from 70 mg daily due to recent poison lizzette diagnosis. Her joints have remained fairly stable since last visit with some discomfort in the bilateral hands. Minimal synovitis on exam. Denies any other recent systemic complaints. Do feel that her SLE is adequately controlled. Will continue CellCept 1500 mg b.i.d., Plaquenil 200 mg b.i.d., Benlysta IV infusions. Routine labs today. Follow-up 3 months. Sooner if needed. Assessment & Plan (10/16/2020 1:47 PM CDT): CDAI 5. Since last visit, patient has resumed Benlysta x1 dose on 08/22/2020. She did have very current sinus infection, so is overdue for her next infusion. Symptoms have resolved at this time. Overall, does note that joints are doing fairly well without any a.m. stiffness. Denies any other recent systemic complaints. Minimal swelling in the right hand without any other obvious synovitis. Appears adequately controlled. Will continue CellCept 1500 mg b.i.d., Plaquenil 200 mg b.i.d., Benlysta IV infusions. Routine labs. Follow-up 3 months. Sooner if needed. Assessment & Plan (07/29/2020 4:35 PM SHOT PACKER): CDAI 8. Last Benlysta infusion 05/14/2020. Has remained off Benlysta due to intermittent episodes of increased sinus drainage, sore throat without any fever, cough, which she does follow with ENT for, Dr. Alicia. If it does continue to note good/bad days of increased joint pain, which does include the bilateral hands. A.m. stiffness for 2 hours. Denies any other recent systemic complaints. Swelling across few joints on exam today. Patient is okay to resume Benlysta infusions. Continue CellCept 1500 mg b.i.d., Plaquenil 200 mg b.i.d.. Continue standing lab order. follow-up 6 weeks. Sooner if needed. Assessment & Plan (03/29/2020 4:06 PM CDT): CDAI 8. Overall, joint symptoms have remained fairly stable since last visit. Does continue to note some mild persistent joint discomfort, primarily in the right 1st MCP joint and lesser degree in the remaining joints of the hands, as well as the right knee. Few mouth sores, but denies other systemic complaints. Denies a.m. stiffness. Minimal synovitis on exam. Most recent [facility] 12/28/2019 was negative. Her initial serologies are not available for review, although it is noted that bill's can become negative with treatment. At this time, will continue CellCept 1500 mg b.i.d., Plaquenil 200 mg b.i.d., Benlysta infusions. Continue standing lab order. Follow-up 3 months. Sooner if needed. Seen with Dr. Grissom. Assessment & Plan (12/25/2019 2:32 PM CDT): CDAI 6. Patient has noted significant improvement in joint complaints with the Kenalog injection given at last visit. Denies significant peripheral joint complaints at this time. Minimal synovitis in the right 3rd PIP joint with no other obvious synovitis. Denies other systemic complaints. Recent labs reviewed and overall looked okay. Will continue CellCept 1500 mg b.i.d., Plaquenil 200 mg b.i.d., Benlysta infusions. Continue standing lab order and was given Avise panel to obtain with next labs. Was advised that labs can be obtained on a q3 month basis, as labs have been stable. Follow-up 3 months. Sooner if needed. Assessment & Plan (11/28/2019 2:18 PM CDT): CDAI 26. Since last visit, patient has noted worsened joint symptoms, which does include the bilateral hands with a.m. stiffness lasting throughout the day. Denies other systemic complaints. Synovitis is present on exam. Is requesting a Kenalog injection today. Does not appear adequately controlled. Will increase CellCept to 1500 mg b.i.d.. Continues Plaquenil 200 mg b.i.d., Benlysta infusions. Routine labs today. Follow-up 4 weeks. Sooner if needed. Due to burden of disease, will administer kenalog 100 mg IM injection, in office, today. Patient was advised of the potential side effects of the medication, including but not limited to increased blood sugar, weight gain, avascular necrosis, glaucoma, cataracts, and/or osteoporosis. Assessment & Plan (09/20/2019 2:32 PM CDT): Patient was forced to miss most recent Benlysta infusion due to a diagnosis of bronchitis in late August. Notes resolution of fever and cough at this time. Overall, doing fairly well at this time with minimal peripheral joint complaints. Denies any other recent systemic complaints. Minimal synovitis on exam. Will have patient resume Benlysta infusions. Will continue Plaquenil 200 mg b.i.d., CellCept 1000 mg b.i.d.. Routine labs today. Follow-up 2 months. Sooner if needed. Assessment & Plan (07/07/2019 2:51 PM SHOT PACKER): CDAI 10. Overall, doing fairly well at this time. Does continue to have some musculoskeletal joint complaints, which I suspect that fibromyalgia may be contributing to some of the symptoms. No obvious synovitis on exam. Denies any other systemic complaints at present. Overall, does appear adequately controlled. Will continue Plaquenil 200 mg b.i.d., CellCept 1000 mg b.i.d., Benlysta infusions. Routine labs today. Fu 2 months. Sooner if needed. Seen with dr. Grissom. Assessment & Plan (05/24/2019 2:41 PM SHOT PACKER): cdai 12. Patient presents for evaluation to resume benlysta infusion. Patient recently completed 2nd antibiotic course this past Wednesday for URTI. Denies any fevers and notes resolution of cough/wheezing. Joint symptoms are fairly stable. Continues to possess some swelling with tenderness on exam. Will obtain CXR to ensure no evidence for pneumonia given her copd history. If looks ok, she can resume benlysta infusions. Continue hcq 200 bid and cellcept 1000 bid. Routine labs today. Fu 6 weeks. Sooner if needed. Seen with dr. Grissom. Assessment & Plan (03/23/2019 4:41 PM CDT): cdai 4. Stable on regimen. Will hold cellcept and benlysta as above until off antibiotics and symptoms resolved. Continue hcq 200 bid. Routine labs today. Fu at scheduled appt. Assessment & Plan (01/23/2019 1:47 PM CDT): CDAI 3. Overall, patient has been doing very well since Kenalog injection given at last visit. Denies much joint pain at this time. No obvious peripheral synovitis. Denies other CTD symptoms. Appears well controlled at this time on current treatment regimen. Will continue CellCept 1000 mg b.i.d., Plaquenil 200 mg b.i.d., as well as Benlysta IV infusions. Obtain routine labs today with standing order. Follow-up 3 months. Sooner if needed. Assessment & Plan (12/06/2018 9:26 AM CDT): High cdai. Has been having left hand pain and swelling for the past 3 days. Usually she is fairly stable on her treatment regimen of cellcept, benlysta, and plaquenil. Reports mouth sore. Pain in bilateral knees exacerbated with activity. Patient appears to be having a flare due to recent increased sun exposure. Due to burden of disease, will administer kenalog 100 mg IM injection, in office, today. Continue Benlysta IV, Cellcept 1000mg BID, and plaquenil 200mg BID. Will repeat routine labs today. Follow up in 1 month. Sooner if needed. Seen with Dr. Grissom. Assessment & Plan (11/07/2018 3:02 PM CDT): CDAI 10 low. Overall, notes that joint symptoms have been fairly stable over the past several weeks. Denies significant peripheral joint complaints at this time. Does have some persistent pain in the bilateral knees, which is exacerbated with activity. Denies other CTD symptoms. Appears fairly stable at this time. Will continue Plaquenil 200 mg b.i.d., CellCept 1000 mg b.i.d., as well as Benlysta infusions. Continue standing order for labs. Follow-up 2 months. Sooner if needed. Assessment & Plan (10/05/2018 3:43 PM CDT): CDAI 13. Overall joints are doing fairly well at this time. Primary complaint is a new onset productive cough with yellow sputum, wheezing, headaches with chills that has begun since Wednesday. Will need to hold CellCept and Benlysta infusions until completion of antibiotics resolution of symptoms. Continue Plaquenil 200 mg b.i.d.. Routine labs today. Follow-up 4 weeks. Sooner if needed. Assessment & Plan (08/16/2018 2:26 PM SHOT PACKER): Moderate CDAI. Overall, patient notes that joints are doing fairly well. Denies significant joint complaints today or morning stiffness. Does have some mild pain and stiffness of the joints of the hands, which she rates as a 2/10. Swelling and tenderness is present across several joints of bilateral hands. Patient was recently given approval by Ophthalmology to restart on Plaquenil medication. For this reason, will have patient begin Plaquenil 200 mg q.d. For 2 weeks followed by increasing back to a stable dose of 200 mg b.i.d.. Risks of retinal toxicity were discussed with the patient. They are aware that they should get at least yearly eye exams, unless otherwise specified. Will continue CellCept 1000 mg b.i.d., as well as Benlysta infusions. Recent labs reviewed with patient. Follow-up 2-3 months. Sooner if needed. Assessment & Plan (06/30/2018 3:17 PM SHOT PACKER): High CDAI. Patient has noted worsening joint pain and stiffness, which she attributes to missing her recent Benlysta infusion appointment due to cracking tooth, as well as having lower back pain on the day of visit. Swelling and tenderness is present across several joints of the bilateral hands and feet, as well as elbows and shoulders. Denies other CTD symptoms at this time. Will proceed with Benlysta infusion upcoming in the next 10 days, as well as continue CellCept 1000 mg b.i.d.. Appears poorly controlled, which is likely secondary to patient being late on her benlysta infusion. Due to burden of disease, will administer kenalog 100 mg IM injection, in office, today. Patient was advised of the potential side effects of the medication, including but not limited to increased blood sugar, weight gain, avascular necrosis, glaucoma, cataracts, and/or osteoporosis. Will obtain seen in order for labs. Follow-up 4 weeks. Sooner if needed. Assessment & Plan (03/24/2018 1:27 PM CDT): Moderate CDAI. Continues to have swelling with more tenderness present across MCP and PIP joints in bilateral hands. Did have improvement with Kenalog injection given at last visit, which gave benefit for several weeks. Had discussed with Ophthalmology about Plaquenil, but again recommended against this medication. Will continue current treatment regimen of Benlysta infusions, as well as CellCept 1000 mg b.i.d.. Follow-up 2-3 months. Sooner if needed. Routine labs with infusions. Suspicious that fibromyalgia may be contributing to some of patient's symptoms. Will increase Lyrica today, as discussed above. Consider repeat hand ultrasound in the future, if patient still doing poorly, although additional treatment options are limited at this time. Assessment & Plan (02/21/2018 1:33 PM CDT): High moderate CDAI. Continues to have some swelling with tenderness across most MCP and PIP joints on exam. Notes worsening of symptoms since stopping the Plaquenil medication. States she will be contacting Ophthalmology in regards to stopping the Plaquenil medication, as was found to have no issues in regards to her retina, per patient report. Continue current treatment regimen of Benlysta infusions, as well as CellCept 1000 mg b.i.d.. Follow-up 4 weeks. Sooner if needed. Routine labs with infusions. Consider repeat hand ultrasound next visit if still doing poorly. Due to burden of disease, will administer kenalog 100 mg IM injection, in office, today. Patient was advised of the potential side effects of the medication, including but not limited to increased blood sugar, weight gain, avascular necrosis, glaucoma, cataracts, and/or osteoporosis. Assessment & Plan (01/21/2018 12:26 PM CDT): Moderate CDAI. Continues to have some swelling on exam. More stiffness and swelling in the joints recently. Will continue with Benlysta infusion. Increase Cellcept to 1000 mg BID, as does not appear adequately controlled on current dose. Fu 4 weeks. Sooner if needed. Seen with Dr. Grissom. Routine labs today. Assessment & Plan (10/22/2017 1:52 PM CDT): cdai is 10mg on cellcept and benlysta. Will cont present meds. f/u 3months. Labs today. Assessment & Plan (07/23/2017 12:02 PM SHOT PACKER): Low disease activity with cellcept and benlysta. Off hcq due to recommendation from the ophthamologist. Can increase cellcept in the future if needed, but will con't with current regimen for now. Labs with infusions. F/u 3 mos, sooner if needed. Assessment & Plan (05/26/2017 3:20 PM SHOT PACKER): High disease activity with hcq, cellcept and benlysta. Will con't with current regimen as she missed last 2 month's infusion. Due to burden of disease, will administer 100mg IM triamcinolone today. If no need for surgery for her foot drop, then will get her next benlysta infusion scheduled. Labs today. F/u 1 month, sooner if needed. Assessment & Plan (03/30/2017 4:25 PM CDT): Moderate disease activity with hcq, cellcept and benlysta. Will con't with current regimen as she missed last month's infusion due to abscesses. Will con't with current regimen as she has been doing ok with current regimen. Labs with infusions. F/u 3 mos, sooner if needed. Assessment & Plan (12/22/2016 2:16 PM CDT): Moderate disease activity with hcq bid, cellcept and benlysta. However, is currently a week overdue for her benlysta and getting infusion tomorrow. Will con't with this. F/u 3 mos, sooner if needed. Vitamin deficiency 06/07/2015 Overview (10/08/2016): Vitamin deficiency Fibromyalgia 06/07/2015 Overview (02/21/2018): Taking amitryptiline and lyrica. Assessment & Plan (09/20/2024 2:33 PM CDT): Stable. Unable to increase Lyrica to 225 mg b.i.d. due to renal dosing. Will continue Lyrica 150 mg b.i.d.. On Lexapro, so will avoid duloxetine. Continue Soma 350 mg t.i.d. p.r.n., which she typically takes once in the evening to help sleep at night. No significant benefit with Flexeril or Zanaflex in the past. Encourage routine exercise. Assessment & Plan (06/15/2024 3:11 PM SHOT PACKER): I continue to suspect this is contributing to her chronic pain complaints. Unable to increase Lyrica to 225 mg b.i.d. due to renal dosing. Will continue Lyrica 150 mg b.i.d.. On Lexapro, so will avoid duloxetine. Continue Soma 350 mg t.i.d. p.r.n., which she typically takes once in the evening to help sleep at night. No significant benefit with Flexeril or Zanaflex in the past. Encourage routine exercise. Assessment & Plan (02/23/2024 2:31 PM CDT): I continue to suspect this is contributing to her chronic pain complaints. Unable to increase Lyrica to 225 mg b.i.d. due to renal dosing. Will continue Lyrica 150 mg b.i.d.. On Lexapro, so will avoid duloxetine. Encourage routine exercise. Assessment & Plan (08/18/2023 3:52 PM SHOT PACKER): I continue to suspect this is contributing to her chronic pain complaints. Unable to increase Lyrica to 225 mg b.i.d. due to renal dosing. Will continue Lyrica 150 mg b.i.d.. Encourage routine exercise. Assessment & Plan (04/29/2023 3:39 PM CDT): I continue to suspect this is contributing to her chronic pain complaints. Unable to increase Lyrica to 225 mg b.i.d. due to renal dosing. Will continue Lyrica 150 mg b.i.d.. Encourage routine exercise. Assessment & Plan (01/11/2023 3:11 PM CDT): Suspect this is contributing to her chronic pain complaints. Unable to increase Lyrica to 225 mg b.i.d. due to renal dosing. Will continue Lyrica 150 mg b.i.d.. Encourage routine exercise. Assessment & Plan (08/14/2022 3:16 PM SHOT PACKER): Suspect this is contributing to her chronic pain complaints. Will increase Lyrica to 225 mg b.i.d.. Encourage routine exercise. Assessment & Plan (03/10/2022 2:19 PM CDT): Stable. Continue Lyrica 150 mg b.i.d.. Encourage routine exercise. Assessment & Plan (12/04/2021 3:41 PM CDT): Stable. Continue Lyrica 150 mg b.i.d.. Encourage routine exercise. Assessment & Plan (07/30/2021 3:06 PM SHOT PACKER): Stable. Continue Lyrica 150 mg b.i.d.. Encourage routine exercise. Assessment & Plan (01/21/2021 3:07 PM CDT): Stable. Continue Lyrica 150 mg b.i.d.. Encourage routine exercise. Assessment & Plan (10/16/2020 1:48 PM CDT): Stable. Continue Lyrica 150 mg b.i.d.. Encourage routine exercise. Assessment & Plan (07/29/2020 4:36 PM SHOT PACKER): Suspect that this is contributing to some of her chronic pain complaints. Will increase Lyrica to 150 mg b.i.d.. Encourage routine exercise. Assessment & Plan (03/29/2020 2:53 PM CDT): Stable. Continue Lyrica 75 mg b.i.d.. Consider further increase if symptoms worsen. Encourage routine exercise. Assessment & Plan (12/25/2019 2:31 PM CDT): Stable. Continue Lyrica 75 mg b.i.d.. Consider further increase if symptoms worsen. Encourage routine exercise. Assessment & Plan (11/28/2019 2:20 PM CDT): Clinically evident. Do suspect that this is contributing to some of her generalized musculoskeletal pain complaints. Will continue Lyrica 75 mg b.i.d. at this time. Avoiding multiple medication changes at one time. Consider further increase at next visit. Encourage routine exercise. Assessment & Plan (09/20/2019 2:35 PM CDT): Continues to note generalized musculoskeletal joint complaints. Has begun Lyrica 50 mg daily and tolerated well. Will increase Lyrica to 50 mg b.i.d. at this time. Patient to call back in 1 month and if continues to have symptoms will likely increase to 75 mg b.i.d. at that point. Encourage routine exercise. Assessment & Plan (07/07/2019 2:52 PM SHOT PACKER): Patient was off Lyrica for few weeks and subsequently restarted at 1:50 a.m. b.i.d. with onset of confusion, dizziness. Symptoms resolved after stopping the Lyrica. Will restart Lyrica at 75 mg once daily and titrate up slowly. Continue Elavil 25 mg q.h.s.. Encourage routine exercise. Assessment & Plan (05/24/2019 2:43 PM SHOT PACKER): Stable. Continue lyrica 150 bid, elevil 25 mg qhs. Encouraged routine exercise. Assessment & Plan (03/23/2019 4:41 PM CDT): Stable. Cont. lyrica 150 bid, elavil 25 qhs. Encouraged exercise. Assessment & Plan (01/23/2019 1:48 PM CDT): Stable. Continue Lyrica 150 mg b.i.d. Along with amitriptyline 25 mg q.h.s.. Encouraged routine exercise. Assessment & Plan (12/06/2018 9:28 AM CDT): Stable. Few generalized tender points. Continue Lyrica 150 mg BID. Encouraged routine exercise. Assessment & Plan (11/07/2018 3:03 PM CDT): Stable. Continue Lyrica 150 mg b.i.d.. Discussed the importance of exercise. Assessment & Plan (10/05/2018 2:00 PM CDT): Stable. Continue Lyrica 150 mg b.i.d.. Discussed the importance of exercise. Assessment & Plan (08/16/2018 2:27 PM SHOT PACKER): Stable. Continue Lyrica 150 mg b.i.d.. Discussed the importance of exercise. Assessment & Plan (06/30/2018 3:11 PM SHOT PACKER): Generalized pain and fatigue symptoms persists, although have improved since increasing the Lyrica at last visit. Will further increase Lyrica to 150 mg b.i.d.. Discussed the importance of exercise. Assessment & Plan (03/24/2018 1:28 PM CDT): Generalized tender points on exam. Suspicious that this is contributing to some of patient's symptoms. Will continue with current which her complain. Increase Lyrica to 75 mg b.i.d. at this time. Discussed side effects including somnolence and dizziness. Discussed the importance of exercise. Assessment & Plan (02/21/2018 1:30 PM CDT): Few tender points on exam. Fairly well controlled on current treatment plan of amitriptyline, as well as Lyrica 50 mg b.i.d.. Discussed need for exercise. Assessment & Plan (01/21/2018 11:25 AM CDT): Tolerable on current amitriptyline. Continue current treatment plan on soma, amitriptyline, and Lyrica. Assessment & Plan (10/22/2017 1:53 PM CDT): Tolerable on current regimen of amitriptyline.Sleeping ok so cont this treatment. Assessment & Plan (07/23/2017 10:43 AM SHOT PACKER): con't with lyrica, amitriptyline, soma. Assessment & Plan (05/26/2017 1:01 PM SHOT PACKER): con't with lyrica, amitriptyline, soma. Assessment & Plan (03/30/2017 4:13 PM CDT): con't with lyrica, amitriptyline, soma. Nonrheumatic aortic (valve) insufficiency 2014 Palpitations 03/22/2014 Chest pain, unspecified 03/15/2013 Cobalamin deficiency 02/28/2013 Overview (10/07/2016): Vitamin B12 deficiency Osteoarthritis 02/28/2013 Overview (10/07/2016): OA (osteoarthritis) Vitamin D deficiency 02/28/2013 Overview (10/07/2016): Vitamin D deficiency Neuropathy 02/28/2013 Overview (10/09/2016): Neuropathy Vertigo 02/28/2013 Overview (10/09/2016): Vertigo Degeneration of intervertebral disc 02/28/2013 Overview (10/09/2016): DDD (degenerative disc disease) Depression 02/28/2013 Overview (10/09/2016): Depression Discoid lupus erythematosus 02/28/2013 Overview (10/10/2016): Discoid lupus Resolved Problems Problem Noted Date Diagnosed Date Resolved Date Fibrositis 02/28/2013 05/26/2017 Overview (10/07/2016): Fibromyalgia Immunizations Immunization Administration Dates Next Due Influenza, Quadrivalent, Yohana l Culture-based MDCK, Antibiotic Free, Intramuscular 04/01/2020 Influenza, Trivalent, IM (MDV) 06/15/2024,2014,04/04/2014 Social History Tobacco Use Types Packs/Day Years Used Date Smoking Tobacco: Every Day Cigarettes 1.5 42.9 Started: 1978; Last attempted to quit: 05/13/2021 Smokeless Tobacco: Never Tobacco Cessation:Ready to Q uit: Not Asked; Counseling Given: Not Answered Comments:Smoking History Packs/day: 1 Packs Alcohol Use Standard Drinks/Week Comments Yes 0 (1 standard drink = 0.6 oz pur e alcohol) rare AUDIT-C Answer Date Recorded Q1: How often do you have a drink containing alc ohol? Never 05/13/2021 Average Number of Drinks Not on file 021 Q3: How often do you have si x or more drinks on one occasion? Never 05/13/2021 Comments No Sex and Gender Information Value Date Recorded Sex Assigned at Not on file Legal Sex Female 3:38 AM SHOT PACKER Gender Identity Female 01/17/2019 7:57 AM CDT Sexual Orientation Not on file Occupation Industry Job Start Date Job End Date DISABLED Not on file Not on file Not on file Last Filed Vital Signs Vital Sign Reading Time Taken Comments Blood Pressure 125/82 09/25/2024 11:22 AM CDT Pulse 78 09/25/2024 11:22 AM CDT Temperature 36.8 C (98.2 F) 07/30/2021 2:06 PM SHOT PACKER Respiratory Rate 18 05/18/2023 9:51 AM SHOT PACKER Oxygen Saturation 95% 09/25/2024 11: 22 AM CDT Inhaled Oxygen Concentration - - Weight 105.8 kg (233 lb 3.2 oz) 025 11:22 AM CDT Height 154.9 cm (5' 0.98 ) 09/25/2024 1 1:22 AM CDT Body Mass Index 44.09 09/25/2024 11:22 AM CDT Plan of Treatment Not on file Procedures Procedure Name Priority Date/Time Associated Diagnosis Comments C3 COMPLEMENT Routine 09/05/2024 3:07 PM SHOT PACKER 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) Encounter for long-term (current) use of medications PROTEIN / CREATININE RATIO, URINE, RANDOM Routine 09/05/2024 3:07 PM SHOT PACKER 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) Encounter for long-term (current) use of medications ANTI-DOUBLE STRANDED DNA ANTIBODIES Routine 09/05/2024 3:07 PM SHOT PACKER 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) Encounter for long-term (current) use of medications ERYTHROCYTE SEDIMENTATION RATE Routine 09/05/2024 3:07 PM SHOT PACKER 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) Encounter for long-term (current) use of medications CRP (ACUTE PHASE) Routine 09/05/2024 3:0 7 PM SHOT PACKER 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) Encounter for long-term (current) use of medications COMPREHENSIVE METABOLIC PANEL Routine 09/05/2024 3:07 PM SHOT PACKER 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) Encounter for long-term (current) use of medications CBC WITH AUTO DIFFERENTIAL Routine 09/05/2024 3:07 PM SHOT PACKER 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) Encounter for long-term (current) use of medications C4 COMPLEMENT Routine 09/05/2024 3:07 PM SHOT PACKER 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) Encounter for long-term (current) use of medications from Last 3 Months Results * Anti-double stranded DNA abs (09/05/2024 3:07 PM SHOT PACKER) [facility] DNA (DS) ab <1 IU/mL [facility] Comment: IU/mL Interpretation < or = 4 Negative 5-9 Indeterminate > or = 10 Positive Blood 09/05/2024 3:07 PM SHOT PACKER 09/05/2024 3:08 PM SHOT PACKER Narrative [facility] - 09/06/2024 7:11 AM SHOT PACKER FASTING:NO FASTING: NO Rell MEAD LAB BLOOD ORDERABLES Fi nal Result Performing Organization Address [facility] Co de Phone Number [facility] [address] [place] [address] * (ABNORMAL) C4 complement (09/05/2024 3:07 PM SHOT PACKER) [facility] Complement component C4C 12(L) 15 - 57 mg/dL [facility] Blood 09/05/2024 3:07 PM SHOT PACKER 09/05/2024 3:08 PM SHOT PACKER Narrative [facility] - 09/06/2024 7:11 AM SHOT PACKER FASTING:NO FASTING: NO Rell MEAD LAB BLOOD ORDERABLES Fi nal Result Performing Organization Address [facility] de Phone Number [facility] [address] [place] [address] * (ABNORMAL) CBC with auto differential (09/05/2024 3:07 PM SHOT PACKER) [facility] WBC 11.6(H) 3.8 - 10.8 Thousand/u L [facility] RBC, POC 4.17 3.80 - 5.10 Million/uL [facility] Hgb 12.5 11.7 - 15.5 g/dL [facility] Hct 39.0 35.0 - 45.0 % [facility] MCV 93.5 80.0 - 100.0 fL [facility] MCH 30.0 27.0 - 33.0 pg [facility] MCHC 32.1 32.0 - 36.0 g/dL [facility] Comment: For adults, a slight decrease in the calculated MCHC value (in the range of 30 to 32 g/dL) is most likely not clinically significant; however, it should be interpreted with caution in correlation with other red cell parameters and the patient's clinical condition. Rdw 14.5 11.0 - 15.0 % [facility] Platelets 248 140 - 400 Thousand/u L [facility] MPV 11.0 7.5 - 12.5 fL [facility] Neutrophils, abs 9,071(H) 1,500 - 7,800 cells/uL [facility] Lymphocytes, abs 1,578 850 - 3,900 cells/uL [facility] Monocyte abs 626 200 - 950 cells/uL [facility] Eosinophils, abs 232 15 - 500 cells/uL [facility] Basophils, abs 93 0 - 200 cells/uL [facility] Neutrophils 78.2 % [facility] Lymphocyte pct 13.6 % [facility] Monocytes 5.4 % [facility] Eosinophils 2.0 % [facility] Basophils 0.8 % [facility] Blood 09/05/2024 3:07 PM SHOT PACKER 09/05/2024 3:08 PM SHOT PACKER Narrative [facility] - 09/06/2024 7:11 AM SHOT PACKER FASTING:NO FASTING: NO Rell MEAD LAB BLOOD ORDERABLES Fi nal Result [facility] [address] [place] [address] * (ABNORMAL) Protein / creatinine ratio, urine, random (09/05/2024 3:07 PM SHOT PACKER) Creatinine, ur 46 20 - 275 mg/dL [facility] Protein/creatin ine ratio 87 24 - 184 mg/g creat [facility] Protein/Creatin ine Ratio 0.087 0.024 - 0.184 mg/mg creat [facility] Protein, ur, quant 4(L) 5 - 24 mg/dL [facility] Urine 09/05/2024 3:07 PM SHOT PACKER 09/05/2024 3:08 PM SHOT PACKER Narrative [facility] - 09/06/2024 7:11 AM SHOT PACKER FASTING:NO FASTING: NO Rell MEAD LAB URINE ORDERABLES Fi nal Result Performing Organization Address [facility] Co de Phone Number [facility] [address] [place] [address] * Erythrocyte sedimentation rate (09/05/2024 3:07 PM SHOT PACKER) Erythrocyte sedimentation rate 16 < OR = 30 mm[facility]h [facility] Blood 09/05/2024 3:07 PM SHOT PACKER 09/05/2024 3:08 PM SHOT PACKER Narrative [facility] - 09/06/2024 7:11 AM SHOT PACKER FASTING:NO FASTING: NO Rell MEAD LAB BLOOD ORDERABLES Fi nal Result Performing Organization Address [facility] de Phone Number [facility] [address] [place] [address] * C3 complement (09/05/2024 3:07 PM SHOT PACKER) Complement component C3C 151 83 - 193 mg/dL [facility] Blood 09/05/2024 3:07 PM SHOT PACKER 09/05/2024 3:08 PM SHOT PACKER Narrative [facility] - 09/06/2024 7:11 AM SHOT PACKER FASTING:NO FASTING: NO Rell MEAD LAB BLOOD ORDERABLES Fi nal Result Performing Organization Address [facility] Co de Phone Number [facility] [address] [address] * CRP (acute phase) (09/05/2024 3:07 PM SHOT PACKER) C-RP <5.0 <8.0 mg/L [facility] Blood 09/05/2024 3:07 PM SHOT PACKER 09/05/2024 3:08 PM SHOT PACKER Narrative [facility] - 09/06/2024 7:11 AM SHOT PACKER FASTING:NO FASTING: NO Rell MEAD LAB BLOOD ORDERABLES Fi nal Result [facility] [address] [place] [address] * (ABNORMAL) Comprehensive metabolic panel (09/05/2024 3:07 PM SHOT PACKER) [facility] Glucose 88 65 - 139 mg/dL [facility] Comment: Non-fasting reference interval BUN 10 7 - 25 mg/dL [facility] Creatinine 1.10(H) 0.50 - 1.03 mg/dL [facility] eGFR 58(L) > OR = 60 mL/min/1.7 3m2 [facility] BUN/creat ratio 9 6 - 22 (calc) [facility] Sodium 139 135 - 146 mmol/L [facility] Potassium, pl 4.1 3.5 - 5.3 mmol/L [facility] Chloride 104 98 - 110 mmol/L [facility] CO2 27 20 - 32 mmol/L [facility] Calcium 9.1 8.6 - 10.4 mg/dL [facility] Protein, sr 6.4 6.1 - 8.1 g/dL [facility] Albumin 4.0 3.6 - 5.1 g/dL [facility] GLOBULIN 2.4 1.9 - 3.7 g/dL (calc) [facility] Alb/glob ratio 1.7 1.0 - 2.5 (calc) [facility] Bilirubin, total 0.3 0.2 - 1.2 mg/dL [facility] Alk phos 92 37 - 153 U/L [facility] AST 15 10 - 35 U/L [facility] ALT (SGPT) 5(L) 6 - 29 U/L [facility] Blood 09/05/2024 3:07 PM SHOT PACKER 09/05/2024 3:08 PM SHOT PACKER Narrative [facility] - 09/06/2024 7:11 AM SHOT PACKER FASTING:NO FASTING: NO us Rell MEAD LAB BLOOD ORDERABLES Fi nal Result [facility] [address] [place] [address] from Last 3 Months Insurance [facility] MEDICARE [facility] MEDICARE [facility] MEDICARE T MEDICARE Care Teams Patient Assessment Coordinator Relationship Specialty Start Date End Date Ananth Krishnan MD PCP - General 10/02/16 Lobito Connolly MD Nephrology 05/31/17 Barbara Grover MD Cardiology 01/19/18 Hetal Mclean PA Physician Orthophotography Technician Dermatology 01/19/18 Rell Smith MD [address] [place] [address] DR [facility] [place] [address] Neurology 01/19/18 Jeffry Tay MD [address] [place] [id number] Consulting Physician Rheumatology 08/18/23
--- OUTSIDE RECORDS SUMMARY | 2024-10-04 10:47 | XMS_ITS | CONTINUITY OF CARE DOCUMENT ---
Author Name eduardo carlshital Address Unknown Organization [facility] Address [address] [place] [address] Phone [phone] Care Team Providers Care Cabin Cleaning Supervisor Name Role Phone Reilly RAMSAY, Barbara Unavailable BORIS RAMSAY, ALFRED Unavailable [phone] ALFRED ESCALANTE MD Unavailable [phone] PROBLEMS Condition Status Date Provider Notes OBESITY active Barbara Grover MD HTN SYSTOLIC active Barbara Grover MD CHEST PAIN-ABNL STRESS , CAT H 03/17 NL CORS, NL LV active Barbara Grover MD HTN CONTROLLED completed - Barbara Grover MD Palpitations active Barbara Grover MD Aortic insufficiency, modera te- severe , nl lv function active Barbara Grover MD Hyperlipidemia active Barbara Grover MD Renal failure, chronic follo ws with Dr Connolly active Barbara Grover MD CAD - 11/25 Diffuse distal LA D, and distal RCA - nl LV - mod -severe AI active Barbara Grover MD Tobacco abuse active Barbara Grover MD Diastolic dysfunction active Barbara Godoy Pulmonary hypertension, mod active Elpidio ruby Shortness of breath- Mod pul m HTN - WHO gp 3 ( COPD) active Barbara Grover MD Oxygen desaturation completed - Barbara Grover MD Chronic kidney disease stage 3 active Myriam Grover MD COPD , 2L of o2 at night , active Barbara olsen MD LUPUS ERYTHEMATOSUS on Benlysta active Wilman Grover MD ARTHRITIS, RHEUMATOID completed - Barbara Grover MD DIABETES MELLITUS active - Barbara Grover MD SLEEP APNEA completed - Barbara Grover MD HYPERCHOLESTEROLEMIA completed - Barbara Grover MD ENCOUNTERS Date Type Provider Location Encounter Diag nosis - In-person encounter Office Visit Barbara Grover MD [facility] Oxygen desaturation - In-person encounter Office Visit Barbara Grover MD [facility] Pulmonary hypertension, modDiastolic dysfunction - In-person encounter Office Visit Barbara Grover MD [facility] COPD , 2L of o2 at night ,CAD - 11/25 Diffuse distal LAD, and distal RCA - nl LV - mod -severe AIShortness of breath- Mod pulm HTN - WHO gp 3 ( COPD) - In-person encounter Office Visit Barbara Grover MD [facility] Shortness of breath- Mod pulm HTN - WHO gp 3 ( COPD) - In-person encounter Office Visit Barbara Grover MD [facility] - In-person encounter Office Visit Barbara Grover MD [facility] - In-person encounter Office Visit Barbara Grover MD [facility] - In-person encounter Office Visit Barbara Grover MD [facility] - In-person encounter Office Visit Barbara Grover MD [facility] - In-person encounter Office Visit Barbara Grover MD [facility] - In-person encounter Office Visit Barbara Grover MD [facility] Chronic kidney disease stage 3Tobacco abuse - In-person encounter Office Visit Barbara Grover MD [facility] - In-person encounter Office Visit Barbara Grover MD [facility] - In-person encounter Office Visit Barbara Grover MD [facility] CAD - 11/25 Diffuse distal LAD, and distal RCA - nl LV - mod -severe AI - In-person encounter Office Visit Barbara Grover MD [facility] Renal failure, chronic follows with Dr Connolly - In-person encounter Office Visit Barbara Grover MD [facility] - In-person encounter Office Visit Barbara Grover MD [facility] HYPERCHOLESTEROLEMIASLEEP APNEAAortic insufficiency, moderate- severe , nl lv functionCOPD , 2L of o2 at night ,Hyperlipidemia - In-person encounter Office Visit Barbara Grover MD [facility] - In-person encounter Office Visit Barbara Grover MD [facility] - In-person encounter Office Visit Barbara Grover MD [facility] HTN CONTROLLEDLUPUS ERYTHEMATOSUS on BenlystaAortic insufficiency, moderate- severe , nl lv function - In-person encounter Office Visit Barbara Grover MD [facility] LUPUS ERYTHEMATOSUS on BenlystaPalpitations - In-person encounter Office Visit Barbara Grover MD [facility] DIABETES MELLITUSARTHRITIS, RHEUMATOIDLUPUS ERYTHEMATOSUS on Benlysta VITAL SIGNS Date Observation Value Provider Body Mass Index (Ratio) 44.98 kg/m2 Wilman Grover MD blood pressure, diastolic 69 mm[Hg] Deric Wynne blood pressure, systolic 133 mm[Hg] Domi Wynne oxygen saturation, oximetry 95 % Kindra Wynne pulse rate 88 /min Kindra Wynne respiratory rate E&M 14 /min Kindra boss weight E&M 242 [lb_av] Kindra Rodriguezam blood pressure, cuff size regular Deric Rodriguezam height E&M 61.5 [in_i] Kindra Rodriguezam Body Mass Index (Ratio) 44.31 kg/m2 Wilman Grover MD blood pressure, diastolic 82 mm[Hg] Li nkLog blood pressure, systolic 163 mm[Hg] Vale kLogic weight E&M 238.4 [lb_av] Kindra Rodriguezam oxygen saturation, oximetry 93 % Kindra Rodriguezam pulse rate 93 /min Kindra Rodriguezam blood pressure, diastolic 82 mm[Hg] Deric goldberg Ricci blood pressure, systolic 163 mm[Hg] Kyl ia Ricci blood pressure, cuff size regular Deric goldberg Ricci respiratory rate E&M 12 /min Kindra Lucero [facility] height E&M 61.5 [in_i] Kindra Rodriguezam Body Mass Index (Ratio) 45.91 kg/m2 Wilman Grover MD blood pressure, cuff size regular Ke rri Gruenenfelder blood pressure, diastolic 80 mm[Hg] Ke rri Gruenenfelder blood pressure, systolic 162 mm[Hg] Nay ri Paytonnenfelder Inhaled O2 2 L/min Tessa Paytonnenfe lder oxygen saturation, oximetry 95 % Tessa Rameshnfandreaer respiratory rate E&M 12 /min Tessa Jazmine jacobenenfelder pulse rate 95 /min Tessa Gruenenfe lder weight E&M 247 [lb_av] Tessa Paytonnenfe lder height E&M 61.5 [in_i] Tessa Jovanuenenfe lder Body Mass Index (Ratio) 46.17 kg/m2 Wilman Grover MD blood pressure, diastolic 73 mm[Hg] Li nkLognestor blood pressure, systolic 126 mm[Hg] Vale kLogic blood pressure, diastolic 73 mm[Hg] St mojica Baron blood pressure, systolic 126 mm[Hg] Sta moo Baron oxygen saturation, oximetry 96 % Susie Baron pulse rate 83 /min Susie Baron respiratory rate E&M 18 /min Susie Jayne nieves weight E&M 248.4 [lb_av] Susie Baron height E&M 61.5 [in_i] Susie Baron Body Mass Index (Ratio) 47.95 kg/m2 Wilman Grover MD blood pressure, diastolic 80 mm[Hg] Li nkLogic blood pressure, systolic 122 mm[Hg] Vale Himanshuogic pulse rate 99 /min Gayathri Campbel l oxygen saturation, oximetry 99 % Gayathri Duran respiratory rate E&M 16 /min Gayathrivahid Duran blood pressure, cuff size regular Cy ntti Duran blood pressure, diastolic 80 mm[Hg] Cy ntjessea Roger blood pressure, systolic 122 mm[Hg] Keara thipepper Duran weight E&M 258 [lb_av] Gayathri Campbel l height E&M 61.5 [in_i] Gayathri Campbel l Body Mass Index (Ratio) 46.84 kg/m2 Wilman Grover MD blood pressure, diastolic 59 mm[Hg] Fe arden Lamonte blood pressure, systolic 116 mm[Hg] Fel icia Lamonte oxygen saturation, oximetry 96 % Marisel Aburto pulse rate 89 /min Marisel Aburto respiratory rate E&M 16 /min Marisel Aburto temperature E&M 97.2 [degF] Marisel Aburto weight E&M 252 [lb_av] Marisel Aburto height E&M 61.5 [in_i] Marisel Aburto Body Mass Index (Ratio) 48.70 kg/m2 Wilman Grover MD blood pressure, diastolic 60 mm[Hg] Federico myles Katelyn blood pressure, systolic 110 mm[Hg] Lisa walsh Katelyn oxygen saturation, oximetry 97 % Maria L Katelyn pulse rate 98 /min Maria L Dorothy Garza weight E&M 262 [lb_av] Maria L Dorothy Garza height E&M 61.5 [in_i] Maria L Dorothy Garza Body Mass Index (Ratio) 47.77 kg/m2 Wilman Grover MD blood pressure, diastolic 70 mm[Hg] Federico myles Katelyn blood pressure, systolic 132 mm[Hg] Lisa walsh Katelyn oxygen saturation, oximetry 90 % Maria L Katelyn pulse rate 73 /min Maria L Dorothy Garza weight E&M 257 [lb_av] Maria L Dorothy Garza height E&M 61.5 [in_i] Maria L Dorothy Garza Body Mass Index (Ratio) 44.42 kg/m2 Wilman Grover MD blood pressure, diastolic 70 mm[Hg] Flynn Garzon blood pressure, systolic 116 mm[Hg] Jude Garzon blood pressure, cuff size regular Flynn stevens Duran oxygen saturation, oximetry 93 % Veronica Garzon pulse rate 92 /min Veronica Garzon weight E&M 239 [lb_av] Veronica Paris respiratory rate E&M 16 /min Veronica Guptaby height E&M 61.5 [in_i] Veronica Body Mass Index (Ratio) 42.19 kg/m2 Andrea Vo blood pressure, cuff size large Chuy Catalanrome blood pressure, diastolic 70 mm[Hg] Chuy rri Alaynarome blood pressure, systolic 110 mm[Hg] Nay Catalanrome oxygen saturation, oximetry 96 % Tessa Caintamarazenaidarome respiratory rate E&M 18 /min Tessa Lucero toña pulse rate 92 /min Tessa Pacheco [facility] weight E&M 227 [lb_av] Tessa Pacheco [facility] height E&M 61.5 [in_i] Tessa Pacheco [facility] Body Mass Index (Ratio) 42.94 kg/m2 Wilman Grover MD blood pressure, diastolic 60 mm[Hg] Flynn Guptaby blood pressure, systolic 112 mm[Hg] Jude lopezyamilka Duran oxygen saturation, oximetry 98 % Veronica Duran respiratory rate E&M 17 /min Veronica Duran pulse rate 84 /min Veronica Paris weight E&M 231 [lb_av] Veronica Duran blood pressure, cuff size regular Flynn stevens blood pressure, resting Yes Vinny marr Duran height E&M 61.5 [in_i] Veronica Body Mass Index (Ratio) 43.49 kg/m2 Wilman Grover MD respiratory rate E&M 17 /min Denise Kohler pulse rate 96 /min Denise Kohler oxygen saturation, oximetry 97 % Denise Kohler blood pressure, diastolic 70 mm[Hg] Dane Kohler blood pressure, systolic 130 mm[Hg] Alexander Kohler blood pressure, cuff size regular Dane Kohler weight E&M 234 [lb_av] Denise Kohler height E&M 61.5 [in_i] Denise Kohler Body Mass Index (Ratio) 46.47 kg/m2 Wilman Grover MD blood pressure, diastolic 80 mm[Hg] Flynn isty Paris blood pressure, systolic 120 mm[Hg] Kri sty Duran oxygen saturation, oximetry 96 % Veronica Duran respiratory rate E&M 16 /min Veronica Paris pulse rate 88 /min Veronica Paris blood pressure, cuff size regular Flynn istejinder Guptaby weight E&M 250.00 [lb_av] Veronica Duran height E&M 61.5 [in_i] Veronica Duran blood pressure, diastolic 80 mm[Hg] Flynn isty Duran blood pressure, systolic 136 mm[Hg] Kri sty Paris pulse rate 98 /min Veronica Paris oxygen saturation, oximetry 97 % Veronica Paris respiratory rate E&M 16 /min Veronica Duran Body Mass Index (Ratio) 43.75 kg/m2 Vinnysandra marr Paris weight E&M 235.4 [lb_av] Veronica Paris blood pressure, diastolic 85 mm[Hg] Mn anthony Olaf blood pressure, systolic 154 mm[Hg] Sis bridgette Olaf respiratory rate E&M 18 /min Sahara Olaf pulse rate 85 /min Sahara Olaf oxygen saturation, oximetry 97 % Sahara Olaf Body Mass Index (Ratio) 44.27 kg/m2 Imelda ssa Olaf weight E&M 238.2 [lb_av] Sahara Olaf Body Mass Index (Ratio) 45.35 kg/m2 Imelda bower Damian blood pressure, diastolic 84 mm[Hg] Me cruz Damian blood pressure, systolic 148 mm[Hg] Sis [place] Damian pulse rate 92 /min Sahara Damian oxygen saturation, oximetry 97 % Sahara Damian respiratory rate E&M 16 /min Sahara Damian weight E&M 244 [lb_av] Sahara Damian Body Mass Index (Ratio) 45.89 kg/m2 Merly walsh Kohler blood pressure, diastolic 70 mm[Hg] Dane shin Kohler blood pressure, systolic 132 mm[Hg] Alexander myles Kohler pulse rate 80 /min Denise Kohler oxygen saturation, oximetry 94 % Denise Kohler respiratory rate E&M 17 /min Denise Kohler weight E&M 246 [lb_av] Denise Kohler height E&M 61.5 [in_i] Denise Kohler ALLERGIES Allergy Name Onset Date Reaction Criticality Status ZYBAN High Criticality active WELLBUTRIN High Criticality active RESULTS Date Observation Value Provider Reference Range Interpretation Location hemoglobin A1C, blood, as % of total hemoglobin 5.6 % OF TOTAL HGB Link[facility] <5.7 Normal prothrombin time (patient) 10.0 s [facility] 9.0-11.5 Normal international normalized ratio (INR) 0.9 [facility] Normal basophils as percent of blood leukocytes 0.7 % [facility] Normal eosinophils as percent of blood leukocytes 1.4 % [facility] Normal monocyte count, blood 5.6 % [facility] Normal lymphocyte count, blood 14.1 % [facility] Normal neutrophils as percent of blood leukocytes 78.2 % [facility] Normal basophils, absolute, manual 76 cells/mcL [facility] 0-200 Normal eosinophils, absolute, manual 153 cells/mcL [facility] 15-500 Normal monocytes, absolute, manual 610 cells/mcL [facility] 200-950 Normal lymphocytes, absolute 1537 CELLS/UL [facility] 850-3900 Normal Absolute Neutrophil count 8524 cells/mcL [facility] 8726-5735 High mean platelet volume 10.3 fL [facility] 7.5-12.5 Normal platelet count 235 THOUSAND/ UL [facility] 140-400 Normal red blood cell distribution width 14.7 % [facility] 11.0-15.0 Normal mean corpuscular hemoglobin concentration, RBC 31.6 G/DL [facility] 32.0-36.0 Low mean corpuscular hemoglobin, RBC 29.7 pg [facility] 27.0-33.0 Normal mean corpuscular volume, RBC 93.9 fL [facility] 80.0-100.0 Normal hematocrit, blood 38.6 % [facility] 35.0-45.0 Normal hemoglobin electrophoresis, blood 12.2 [facility] 11.7-15.5 Normal erythrocyte (RBC) count 4.11 MILLION/U L [facility] 3.80-5.10 Normal leukocyte (white blood cells) count, blood 10.9 THOUSAND/ UL [facility] 3.8-10.8 High NT-pro BNP 174 [facility] <125 High alanine aminotransferase (SGPT), serum 6 1/L [facility] 6-29 Normal aspartate aminotransferase (SGOT), serum 12 1/L [facility] 10-35 Normal alkaline phosphatase, serum 91 1/L [facility] 37-153 Normal bilirubin, serum, total 0.3 mg/dL [facility] 0.2-1.2 Normal albumin/globulin ratio, serum 1.8 (calc) [facility] 1.0-2.5 Normal globulins, serum, total 1.9 G/DL (CALC) [facility] 1.9-3.7 Normal albumin, serum 3.4 g/dL [facility] 3.6-5.1 Low protein, total, serum 5.3 g/dL [facility] 6.1-8.1 Low calcium, serum 8.6 mg/dL [facility] 8.6-10.4 Normal carbon dioxide, venous blood 26 mmol/L [facility] 20-32 Normal chloride, serum 107 mmol/L [facility] 98-110 Normal potassium, serum 3.9 mmol/L [facility] 3.5-5.3 Normal sodium, serum 143 mmol/L [facility] 135-146 Normal urea nitrogen/creatinine ratio, serum SEE NOTE: (calc) [facility] 6-22 creatinine, serum 0.94 mg/dL [facility] 0.50-1.03 Normal urea nitrogen, blood 8 mg/dL [facility] 7-25 Normal blood glucose, random 134 mg/dL [facility] 65-99 High cholesterol, non-HDL, total 91 MG/DL (CALC) [facility] <130 Normal cholesterol/HDL ratio, serum, percent 3.4 (calc) [facility] <5.0 Normal LDL cholesterol, serum 68 MG/DL (CALC) [facility] Normal triglyceride, serum, fasting 150 mg/dL [facility] <150 High HDL cholesterol, serum 38 mg/dL [facility] > OR = 50 Low cholesterol, serum 129 mg/dL [facility] <200 Normal prothrombin time (patient) 10.0 s [facility] 9.0-11.5 Normal international normalized ratio (INR) 1.0 [facility] Normal basophils as percent of blood leukocytes 0.6 % [facility] Normal eosinophils as percent of blood leukocytes 3.1 % [facility] Normal monocyte count, blood 4.2 % [facility] Normal lymphocyte count, blood 19.2 % [facility] Normal neutrophils as percent of blood leukocytes 72.9 % [facility] Normal basophils, absolute, manual 74 cells/mcL [facility] 0-200 Normal eosinophils, absolute, manual 384 cells/mcL [facility] 15-500 Normal monocytes, absolute, manual 521 cells/mcL [facility] 200-950 Normal lymphocytes, absolute 2381 CELLS/UL [facility] 850-3900 Normal Absolute Neutrophil count 9040 cells/mcL [facility] 5101-0926 High mean platelet volume 9.0 fL [facility] 7.5-12.5 Normal platelet count 226 THOUSAND/ UL [facility] 140-400 Normal red blood cell distribution width 14.1 % [facility] 11.0-15.0 Normal mean corpuscular hemoglobin concentration, RBC 33.6 G/DL [facility] 32.0-36.0 Normal mean corpuscular hemoglobin, RBC 31.9 pg [facility] 27.0-33.0 Normal mean corpuscular volume, RBC 94.8 fL [facility] 80.0-100.0 Normal hematocrit, blood 42.2 % [facility] 35.0-45.0 Normal hemoglobin electrophoresis, blood 14.2 [facility] 11.7-15.5 Normal erythrocyte (RBC) count 4.45 MILLION/U L [facility] 3.80-5.10 Normal leukocyte (white blood cells) count, blood 12.4 THOUSAND/ UL [facility] 3.8-10.8 High calcium, serum 9.3 mg/dL [facility] 8.6-10.4 Normal carbon dioxide, venous blood 22 mmol/L [facility] 20-31 Normal chloride, serum 112 mmol/L [facility] 98-110 High potassium, serum 3.7 mmol/L [facility] 3.5-5.3 Normal sodium, serum 142 mmol/L [facility] 135-146 Normal urea nitrogen/creatinine ratio, serum 13 (calc) [facility] 6-22 Normal Estimated Glomerular Filtration Rate (calc) 68 mL/min/{1 .73_m2} [facility] > OR = 60 Normal creatinine, serum 1.09 mg/dL [facility] 0.50-1.05 High urea nitrogen, blood 14 mg/dL [facility] 7-25 Normal blood glucose, random 110 [facility] High blood glucose, random 92 mg/dL [facility] urea nitrogen, blood 13 mg/dL [facility] platelet count 199 10*3/mm3 [facility] hematocrit, blood 41.7 % [facility] D-dimer quantitative mcg/mL 0.30 ug/mL [facility] alanine aminotransferase (SGPT), serum 18 1/L [facility] aspartate aminotransferase (SGOT), serum 20 1/L [facility] creatinine, serum 1.00 mg/dL [facility] potassium, serum 3.9 mmol/L [facility] sodium, serum 145 mmol/L [facility] HISTORY OF MEDICATION USE Medication Status Instructions Dates Provider Indications Com ments Entresto 24-26 mg tablet active 1 tablet by mouth twice a day Humza Damico ropinirole 0.5 mg tablet active Elpidio Conley Trelegy Ellipta 100-62.5-25 mcg blister with device active Elpidio Conlye escitalopram oxalate 20 mg tablet active Take 1 tablet by mouth once a day Elpidio Conley #90, 90 days supply, Prescribed by ALFRED ESCALANTE, Filled 10/30/2018 rosuvastatin 10 mg tablet active Take 1 tablet by mouth once a day Elpidio Cnoley #90, 90 days supply, Prescribed by ALFRED ESCALANTE, Filled 11/17/2018 fluticasone propionate 50 mcg/actuation spray,suspension active as directed Veronica Garzon EQ NICOTINE 21 MG/24HR TRANSDERMAL PATCH 24 HOUR completed take 1 patch every morning - Maria L Zepeda [facility] NICOTINE 21 MG/24HR TRANSDERMAL PATCH 24 HOUR completed Take as directed, once a day - Maria L Zepeda CHANTIX STARTING MONTH CARINA 0.5 MG X 11 & 1 MG X 42 ORAL TABLET completed One Pack. Take as directed. - Veronica Garzon Restasis 0.05% dropperette active 1 drop into both eyes twice a day Tessa Diego aspirin 81 mg tablet,delayed release (/EC) completed 1 tablet by mouth once a day - Elpidio Conley Nitrolingual 400 mcg/spray spray,non-aeroso l active 1 spray as needed Barbara Grover MD Olux 0.05% foam active as directed Elpidio Conley Vanos 0.1% cream active twice a day as directed Elpidio Conley KENALOGE INJ active as directed Elpidio Conley BENLVSTA INJ completed as directed - Humza Damico lisinopril 20 mg tablet completed 1 tablet once a day - Elpidio Conley AZITHROMYCIN 500 MG ORAL TABLET completed po daily x 5 days - Denise Kohler Breo Ellipta 100-25 mcg/dose blister with device completed once a day - Elpidio Conley ASPIR-81 TABLET DELAYED RELEASE completed once daily - Denise Kohler Lyrica 50 mg capsule active 1 capsule twice a day Elpidio Conley Lexapro 20 mg tablet completed once a day - Elpidio Conley Ventolin HFA 90 mcg/actuation HFA aerosol inhaler active 2 puff as needed Elpidio Conley mycophenolate mofetil 500 mg tablet active Take 2 tablet by mouth twice a day Elpidio Conley SEROQUEL 200 MG ORAL TABLET active Take 1 tablet by mouth once a day Veronica Garzon NAPROXEN 500 MG ORAL TABLET completed 1 tab twice daily - Sahara Damian Soma 350 mg tablet active 1 tablet three times a day Elpidio Conley diazepam 5 mg tablet completed 1 tablet twice a day - Elpidio Conley hydrocodone-acet aminophen 10-325 mg tablet active as needed Elpidio Conley GABAPENTIN 400 MG ORAL CAPSULE completed 1 tabthree times daily - Sahara Babin omeprazole 20 mg tablet,delayed release (DR/EC) active twice a day Elpidio Conley AMITRIPTYLINE HCL 25 MG TABS completed once a day - Elpidio Conley topiramate 100 mg tablet completed 1 tablet twice a day - Elpidio Conley CYANOCOBALAMIN 1000 MCG/ML INJECTION SOLUTION completed every 3 months - Sahara Babin VITAMIN B-12 TABLET active 500 mg once a day Elpidio Conley ergocalciferol (vitamin D2) 1,250 mcg (50,000 unit) capsule active 1 tablet once a week Elpidio Conley CYMBALTA 60 MG ORAL CAPSULE DELAYED RELEASE PARTICLES completed 1 tab daily - Ciradanya Royce Plaquenil 200 mg tablet active 1 tablet twice a day Barbara Grover MD on hold SOCIAL HISTORY Date Observation Value Provider smoking/tobacco cess ation, patient education and counseling yes Humza Damico smoking, date started 1977 Humza Damico smoking history, tot al pack/year 46 Humza Damico smoking history, tot al pack/day 2 Humza Damico cigarette use yes Humza Damico smoking status Current every day smoker Kaylyn Damico smoking/tobacco cess ation, patient education and counseling yes Elpidio Conley smoking, date started 1977 Elpidio pond smoking history, tot al pack/year 46 Elpidio Conley smoking history, tot al pack/day 2 Elpidio Conley cigarette use yes Elpidio Conley smoking status Current every day smoker R mindy Conley smoking history, tot al pack/year 46 Cindi Pollock RN social history reviewed E&M revi ewed - no changes required Elpidio Cleaninghermelinda social history reviewed E&M revi ewed - no changes required Elpidio Cleaninghermelinda social history reviewed E&M revi ewed - no changes required Barabra Grover MD social history E&M Marital Statu s: Unknown or other U sing a patch now. Smoking History: P atient currently smokes every day. P atient has been counseled to quit. Elpidio Santokenrickwhit smoking/tobacco cess ation, patient education and counseling yes Susie Baron smoking, date started 1977 Susie Baron smoking history, tot al pack/year 35 Susie Baron smoking history, tot al pack/day 2 Susie Baron cigarette use yes Susie Baron smoking status Current every day smoker Doreen barney Baron social history reviewed E&M revi ewed - no changes required Elpidio Cleaninghermelinda social history E&M Marital Statu s: Unknown or other U sing a patch now. Smoking History: P atient currently smokes every day. P atient has been counseled to quit. Barbara Grover MD smoking/tobacco cess ation, patient education and counseling yes Gayathri Duran smoking, date started 1977 Maggie Duran smoking history, tot al pack/year 35 Gayathri Duran smoking history, tot al pack/day 2 Gayathri Duran cigarette use yes Gayathri jones smoking status Current every day smoker C kelsie Duran social history reviewed E&M revi ewed - no changes required Barbara Grover MD smoking/tobacco cess ation, patient education and counseling yes Marisel Aburto smoking, date started 1977 [place] Aburto smoking history, tot al pack/year 35 Marisel Aburto smoking history, tot al pack/day 2 Marisel Aburto cigarette use yes Marisel Aburto smoking status Current every day smoker Renae Aburto smoking/tobacco cess ation, patient education and counseling yes Barbara Grover MD smoking history, tot al pack/day 2 Barbara Grover MD cigarette use yes Barbara Godoy smoking status Current every day smoker T magi Grover MD social history E&M Marital Statu s: Unknown or other U sing a patch now. S moking History: P atjocelyn currently smokes every day. P atient has been counseled to quit. Barbara Grover MD social history reviewed E&M revi ewed - no changes required Barbara Grover MD social history E&M Marital Statu s: Unknown or other U sing a patch now. Smoking History: P atient currently smokes every day. P atient has been counseled to quit. Barbara Grover MD smoking/tobacco cess ation, patient education and counseling yes Maria L Zepeda smoking, date started 1977 Maria L Zepeda smoking history, tot al pack/year 35 Maria L Zepeda smoking history, tot al pack/day 20 Maria L Zepeda cigarette use yes Maria L Lynn smoking status Current every day smoker E parag Zepeda social history reviewed E&M revi ewed - no changes required Maria L Zepeda smoking/tobacco cess ation, patient education and counseling yes Maria L Zepeda smoking, date started 1977 Maria L Besse smoking history, tot al pack/year 35 Maria L HaleNirmalGreg smoking history, tot al pack/day 20 Maria L HaleNirmalGreg cigarette use yes Maria L KinneyGreg smoking status Current every day smoker Danya tuttle Katelyn social history reviewed E&M revi ewed - no changes required Maria L Katelyn social history E&M Marital Statu s: Unknown or other Smoking History: P atjocelyn currently smokes every day. P atjocelyn has been counseled to quit. U sing a patch now. Barbara Grover MD social history reviewed E&M revi ewed - no changes required Barbara Grover MD smoking/tobacco cess ation, patient education and counseling yes Veronica Garzon smoking, date started 1977 Veronica Paris smoking history, tot al pack/year 35 Veronica Duran smoking history, tot al pack/day 20 Veronica Paris cigarette use yes Veronica Guptaby smoking status Current every day smoker Aquiles Guptaby social history reviewed E&M revi ewed - no changes required Barbara Grover MD smoking/tobacco cess ation, patient education and counseling yes Tessa Diego smoking, date started 1977 Tessa Diego smoking history, tot al pack/year 35 Tessa Johnathon smoking history, tot al pack/day 20 Tessa Johnathon cigarette use yes Tessa Alayna peter smoking status Current every day smoker Aquiles garza Johnathon social history reviewed E&M revi ewed - no changes required Barbara Grover MD smoking/tobacco cess ation, patient education and counseling yes Veronica Guptaby smoking, date started 1977 Veronica Paris smoking history, tot al pack/year 35 Veronica Duran smoking history, tot al pack/day 20 Veronica Paris cigarette use yes Veronica Duran smoking status Current every day smoker Aquiles Garzon social history reviewed E&M revi ewed - no changes required Barbara Grover MD social history reviewed E&M revi ewed - no changes required Barbara Grover MD number of grandchildren Barbara Kwan shiv Garzon smoking status Current every day smoker Aquiles Garzon smoking/tobacco cess ation, patient education and counseling yes Veronica Guptaby smoking, date started 1977 Veronica Guptaby smoking history, tot al pack/year 35 Veronica Guptaby smoking history, tot al pack/day 20 Veronica Guptaby cigarette use yes Veronica Guptaby social history reviewed E&M revi ewed - no changes required Barbara Grover MD social history reviewed E&M revi ewed - no changes required Barbara Grover MD smoking/tobacco cess ation, patient education and counseling yes Sahara Babin smoking, date started 1977 Kerry Babin smoking history, tot al pack/year 35 Sahara Babin smoking history, tot al pack/day 20 Sahara Babin cigarette use yes Sahara Babin smoking status current every day smoker Chaim fagan Olaf social history reviewed E&M revi ewed - no changes required Barbara Grover MD social history reviewed E&M revi ewed - no changes required Barbara Grover MD smoking, date started 1977 Kerry Damian smoking history, tot al pack/year 35 Sahara Damian smoking history, tot al pack/day 20 Sahara Damian cigarette use yes Sahara Damian smoking status current every day smoker Chaim fagan Damian social history E&M Marital Statu s: Unknown or other Barbara Grover MD social history reviewed E&M reviewed Barbara Grover MD smoking history, tot al pack/year 35 Denise Kohler smoking, date started 1977 Denise Kohler smoking history, tot al pack/day 20 Denise Kohler cigarette use yes Denise Kohler smoking status current every day smoker Keke Kohler FUNCTIONAL STATUS Date Observation Value Provider HRA, CV Assess/Plan, Angina (inactive) Management Plan continue current therapy Humza Nacht HRA, CV Assess/Plan, Angina (inactive) Management Plan continue current therapy Elpidio Conley HRA, CV Assess/Plan, Angina (inactive) Management Plan continue current therapy Elpidio Beckzai HRA, CV Assess/Plan, Angina (inactive) Management Plan continue current therapy Elpidio Conley HRA, CV Assess/Plan, Angina (inactive) Management Plan continue current therapy Elpidiomarcel Beckzai HRA, CV Assess/Plan, Angina (inactive) Management Plan continue current therapy Barbara Grover MD HRA, CV Assess/Plan, Angina (inactive) Management Plan continue current therapy Barbara Grover MD HRA, CV Assess/Plan, Angina (inactive) Management Plan continue current therapy Barbara Grover MD MENTAL STATUS Date Observation Value Provider assessment of judgme nt and insight E&M Alert and oriented to time, place and person. Mood and affect are normal. Barbara Grover MD FAMILY HISTORY Family Member Condition Mother Family History Unkno wn Father Negative FH of Coron lilly Artery Disease Half Sister Family History of Co ronary Artery Disease: Half Brother Family History of Co ronary Artery Disease: INSURANCE PROVIDERS Payer name Policy type / Coverage type [place] party ID [employer] MEDICARE [place]ANDRE PPO Medicare [id number] ADVANCE DIRECTIVES Name Date DISCUSSED - NO DECISION MADE TREATMENT PLAN Date Name Performer [id number],S, Elpidio Cleaning i [id number],W, Elpidio Santomedza i [id number],W, Elpidio Hansamedza i [id number],S, Elpidio Hansamedza i [id number],S, Elpidio Hansamedza i [id number],S, Elpidio Hansamedza i [id number],S, Elpidio Hansamedza i [id number],S, Elpidio Hansamedza i [id number],S, Elpidio medza i [id number],S, Elpidio medza i [id number],S, Elpidio medza i [id number],B, Elpidio medza i [id number],S, Elpidio medza i [id number],S, Elpidio medza i [id number],S, Elpidio medza i [id number],S, Elpidio Ahmedza i [id number],S, Elpidio medza i [id number],S, Barbara Grover MD [id number],B, Barbara Grover MD [id number],S, Barbara Grover MD [id number],S, Barbara Grover MD [id number],S, Barbara Grover MD [id number],SBarbara MD Cardiology: H er updated medication list for this problem includes: Nitrolingual 400 Mcg/spray [place],non-aerosol (Nitroglycerin) ..... 1 spray as needed T his visit has been a part of the consistent, comprehensive, and ongoing management of the chronic medical condition(s) listed above for the patient. Barbara Grover MD Cardiology:This visi t has been a part of the consistent, comprehensive, and ongoing management of the chronic medical condition(s) listed above for the patient. Humza Damico Cardiology Humza Damico Cardiology Humza Damico Cardiology Humza Damico Cardiology Humza Damico Cardiology Humza Damico Cardiology:This visi t has been a part of the consistent, comprehensive, and ongoing management of the chronic medical condition(s) listed above for the patient. Barbara Grover MD Cardiology Elpidio Conley Cardiology: H er updated medication list for this problem includes: Trelegy Ellipta 100-62.5-25 Mcg Blister With Device (Kpgbtillbxa-ifijbnhbd-wimqjbmm) Ventolin Hfa 90 Mcg/actuation Hfa Aerosol Inhaler (Albuterol sulfate) ..... 2 puff as needed Elpidio Conley Cardiology Elpidio Conley Cardiology Elpiido Conley Cardiology Elpidio Conley Cardiology: H er updated medication list for this problem includes: Nitrolingual 400 Mcg/spray [place],non-aerosol (Nitroglycerin) ..... 1 spray as needed Elpidio Santomedwhit Cardiology Elpidio Ahmedzai Cardiology Elpidio Ahmedzai Cardiology Elpidio Santomedzai Cardiology Elpidio Santomedzai Cardiology Elpidio Santomedzai Cardiology Elpidio Santomedzai Cardiology Elpidio Santomedzai Cardiology Elpidio Santomedzai Cardiology Elpidio Santomedzai Cardiology Elpidio Ahmedzai Cardiology Elpidio Ahmedzai Cardiology Elpidio Ahmedzai Cardiology Elpidio Ahmedzai Cardiology Elpidio Ahmedzai Cardiology Elpidio Ahmedzai Cardiology Elpidio Ahmedzai Cardiology Elpidio Ahmedzai Cardiology Elpidio Ahmedzai Cardiology Barbara Grover MD Cardiology Barbaar Grover MD Cardiology Barbara Grover MD Cardiology Barbara Grover MD Cardiology Barbara Grover MD Cardiology Barbara Grover MD Cardiology Barbara Grover MD Cardiology Barbara Grover MD Cardiology Barbara Grover MD Cardiology Barbara Grover MD Cardiology Barbara Grover MD Cardiology Barbara Grover MD Cardiology Barbara Grover MD Cardiology Barbara Grover MD Cardiology Barbara Grover MD Cardiology Barbara Grover MD Cardiology Barbara Grover MD Cardiology Barbara Grover MD Cardiology Barbara Grover MD Cardiology Barbara Grover MD Cardiology Barbara Grover MD Cardiology Barbara Grover MD Cardiology Barbara Gorver MD Cardiology Barbara Grover MD Cardiology Barbara Grover MD Cardiology Barbara Grover MD Cardiology Barbara Grover MD Cardiology:Prachi diaz, sob. Myriam Grover MD Cardiology:BP today: 132/70 P rior BP: 116/70 (12/23/2017) H er updated medication list for this problem includes: Aspirin Adult Low Dose 81 Mg Oral Tablet Delayed Release (Aspirin) ..... One tab by mouth daily Lisinopril 20 Mg Oral Tablet (Lisinopril) ..... One tab. daily Barbara Grover MD Cardiology: B P today: 116/70 P rior BP: 110/70 (06/02/2017) Labs Reviewed: C reat: 1.09 (04/21/2017) Barbara Grover MD Cardiology Barbara Grover MD Cardiology Barbara Grover MD Cardiology Hospital Follow up :[facility]imize medical management. Smoking cessation advised. Prescription for Chantix given. Barbara Grover MD [facility] Follow up : B P today: 110/70 P rior BP: 112/60 (04/01/2017) Labs Reviewed: C reat: 1.09 (04/21/2017) Barbara Grover MD [facility] Follow up :D iet controlled. Barbara Grover MD Cardiology Hospital Follow up To adrian Grover MD Cardiology Hospital Follow up :Moderate on echo 04/2017. No dizziness. Barbara Grover MD Cardiology Barbara Grover MD Cardiology Barbara Grover MD Cardiology Barbara Grover MD Cardiology Barbara Grover MD Cardiology Barbara Grover MD Cardiology Barbara Grover MD Cardiology Barbara Grover MD Cardiology Barbara Grover MD Cardiology Barbara Grover MD Cardiology Barbara Grover MD Cardiology Barbara Grover MD Cardiology Barbara Grover MD Cardiology Barbara Grover MD Cardiology Barbara Grover MD Cardiology Barbara Grover MD Cardiology Barbara Grover MD Cardiology Barbara Grover MD Cardiology Barbara Grover MD Cardiology Barbara Grover MD Cardiology Barbara Grover MD Cardiology Barbara Grover MD Cardiology Brabara Grvoer MD Cardiology Barbara Grover MD Cardiology Barbara Grover MD Cardiology Barbara Grover MD Cardiology Barbara Grover MD Cardiology Barbara Grover MD Cardiology Barbara Grover MD Cardiology Barbara Grover MD Cardiology Barbara Grover MD follow up: T he following medications were removed from the medication list: Naproxen 500 Mg Tabs (Naproxen) ..... 1 tab twice daily Her updated medication list for this problem includes: Plaquenil 200 Mg Tabs (Hydroxychloroquine sulfate) ..... 1 tab twice daily Barbara Grover MD hospital follow up: B P today: 132/70 Prior BP: / () N uclear Stress Findings: 1. Abnormal myocardial perfusion imaging after vasodilator stress with Regadenoson. 2 . Normal left ventricular systolic function with a calculated ejection fraction of 65%. 3 . Myocardial scintigraphy demonstrates a small reversible anteroapical defect consistent with ischemia. CNE (03/03/2013) Barbara Grover MD hospital follow up Barbara Grover MD hospital follow up Barbara Grover MD Date Name Complete Echo PROBNP, N TERMINAL PROTHROMBIN TIME WIT H INR CBC (INCLUDES DIFF/P LT) HEMOGLOBIN A1c LIPID PANEL COMPREHENSIVE METABO LIC PANEL W/EGFR PROBNP, N TERMINAL HEMOGLOBIN A1c LIPID PANEL COMPREHENSIVE METABO LIC PANEL, W/EGFR Complete Echo Complete Echo Complete Echo PROTHROMBIN TIME WIT H INR CBC (INCLUDES DIFF/P LT) BASIC METABOLIC PANE L W/EGFR HISTORY OF PROCEDURES Procedure Date Procedure Name Provider Procedure Notes S tatus Complex e/m visit add on Barbara Grover MD completed Complex e/m visit add on Barbara Grover MD completed EKG Barbara Grover MD completed EKG Barbara Grover MD completed EKG Barbara Grover MD completed EKG Barbara Grover MD completed EKG Barbara Grover MD completed ePrescribe - Check t his box if eRx is used Barbara Grover MD completed SNOMED-CT: 853287924 450894 Current Medications Documented Barbara Grover MD completed Stress EKG Odilia Carpio MD complet ed Regadenoson, 4 units Odilia Carpio MD completed Cardiolite, 2 units Odilia Carpio MD completed SPECT Images Odilia Carpio MD compl eted SNOMED-CT: 37550384 Physical Exam, Performed: Pulse Exam of Foot Barbara Grover MD completed EKG Barbara Grover MD completed SNOMED-CT: 718222717 175190 Current Medications Documented Barbara Grover MD completed SNOMED-CT: 886542615 Smoking Cessation Counseling Barbara Grover MD completed SNOMED-CT: 70685998 Physical Exam, Performed: Pulse Exam of Foot Barbara Grover MD completed EKG Barbara Grover MD completed SNOMED-CT: 885210207 293457 Current Medications Documented Barbara Grover MD completed SNOMED-CT: 066400483 Smoking Cessation Counseling Barbara Grover MD completed SNOMED-CT: 23022523 Physical Exam, Performed: Pulse Exam of Foot Barbara Grover MD completed SNOMED-CT: 464080097 665782 Current Medications Documented Barbara Grover MD completed SNOMED-CT: 73150910 Physical Exam, Performed: Pulse Exam of Foot Barbara Grover MD completed SNOMED-CT: 679450075 271985 Current Medications Documented Barbara Grover MD completed SNOMED-CT: 49007559 Physical Exam, Performed: Pulse Exam of Foot Barbara Grover MD completed SNOMED-CT: 236377907 Smoking Cessation Counseling Barbara Grover MD completed EKG Barbara Grover MD completed SNOMED-CT: 253256539 580106 Current Medications Documented Barbara Grover MD completed SNOMED-CT: 547250076 565581 Current Medications Documented Barbara Grover MD completed SNOMED-CT: 744731353 Smoking Cessation Counseling Barbara Grover MD completed SNOMED-CT: 99863340 Physical Exam, Performed: Pulse Exam of Foot Barbara Grover MD completed EKG Barbara Grover MD completed EKG Barbara Grover MD completed
--- OUTSIDE RECORDS SUMMARY | 2024-10-04 10:47 | XMS_ITS | Clinical Summary ---
Author Organization [facility] Address [address] [place] [address] Care Team Providers Care Diabetes Clinical Manager Name Role Phone Ananth Krishnan MD Primary Care Provider [phone] Source Comments [facility],non-owned Affiliates and Associated Physician Practices is amultiple site organization consisting of ambulatory clinics and hospital sitesin [place], [place], [place] and [place]. This disclosure is being madepursuant to the Care Everywhere program and may not contain all information available regarding this patient. Last updated 18.[facility] [place] Social History Tobacco Use Types Packs/Day Years Used Date Smoking Tobacco: Never Assessed Sex and Gender Information Value Date Recorded Sex Assigned at Not on file Gender Identity Not on file Sexual Orientation Not on file Last Filed Vital Signs Vital Sign Reading Time Taken Comments Blood Pressure 122/70 03/27/2013 12:31 PM CDT Pulse 80 03/27/2013 12:31 PM CDT Temperature 36.8 C (98.3 F) 03/27/2013 12:31 PM CDT Respiratory Rate 18 03/27/2013 12:31 PM CDT Oxygen Saturation - - Inhaled Oxygen Concentration - - Weight 108.9 kg (240 lb) 03/27/2013 12:31 PM CDT Height 162.6 cm (5' 4 ) 03/27/2013 12:31 PM CDT Body Mass Index 41.2 03/27/2013 12:31 PM CDT Plan of Treatment Health Maintenance Due Date Last Done Comments COLOGUARD (AGES 45-75) - COLON CA SCREENING 1964 COLON MONITORING 1964 COLONOSCOPY - COLON CA SCREENING 1964 CT COLONOGRAPHY - COLON CA SCREENING 1964 Colorectal Cancer Screening 1964 FIT - COLON CA SCREENING 1964 FLEX SIG - COLON CA SCREENING 1964 LIPID TESTING 1964 MAMMOGRAM 1964 PAP SMEAR 1964 HIV SCREENING 10/20/1979 HEPATITIS C SCREENING 10/15/1982 DTAP/TDAP/TD VACCINES (1 - Tdap) 10/20/1983 HEPATITIS B VACCINE (1 of 3 - 19+ 3-dose series) 10/20/1983 PNEUMOCOCCAL VACCINE 50+ (1 of 1 - PCV) 2014 ZOSTER VACCINE (1 of 2) 2014 COVID-19 VACCINE (1 - 2023- season) 2024 INFLUENZA VACCINE (#1) 2024 6, 05/06/2015, 04/16/2015, Additional history exists DEPRESSION SCREENING 07/05/2024 HIB VACCINE Aged Out No longer eligi ble based on patient's age to complete this topic HPV VACCINE Aged Out No longer eligi ble based on patient's age to complete this topic MENINGOCOCCAL (Group B) VACCINE SHARED DECISION-MAKING Aged Out No longer eligible based on patient's age to complete this topic MENINGOCOCCAL GROUPS A/C/Y/W VACCINE Aged Out No longer eligible based on patient's age to complete this topic PNEUMOCOCCAL VACCINE Aged Out No long er eligible based on patient's age to complete this topic Care Teams Diabetes Clinical Manager Relationship Specialty Start Date End Date Ananth Krishnan MD [address] [place] [address] PCP - General 04/01/22
--- OUTSIDE RECORDS SUMMARY | 2024-10-04 10:47 | XMS_ITS | Encounter Summary ---
Author Organization [facility] Address [address] [place] [address] Phone Care Team Providers Care Urogynaecologist Name Role Phone Ananth Krishnan MD Primary Care Provider [phone] Jaciel PIERSON MD, John J. Unavailable Lobito Connolly MD Unavailable [phone] Barbara Grover MD Unavailable Hetal Mclean Unavailable Rell Smith MD Unavailable [phone] Cornel Bernal MD Unavailable [phone] Jeffry Tay MD Unavailable [phone] Encounter Details Date Type Department Care Team (Late st Contact Info) Description 08/01/2021 Orders Only [facility] [phone] Scanning, Provider Social History Tobacco Use Types Packs/Day Years Used Date Smoking Tobacco: Every Day Cigarettes 1.5 42.9 Started: 1979; Last attempted to quit: 05/13/2021 Smokeless Tobacco: Never Comments:Smoking History Pac ks/day: 1 Packs Alcohol Use Standard Drinks/Week Comments [...] on file 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 Gender Identity Female 01/17/2019 7:57 AM CDT Sexual Orientation Not on file Occupation Industry Job Start Date Job End Date DISABLED Not on file Not on file Not on file documented as of this encounter Plan of Treatment Not on file documented as of this encounter Procedures Procedure Name Priority Date/Time Associated Diagnosis Comments SCAN - RADIOLOGY/IMAGING 08/01/2021 documented in this encounter Results * SCAN - RADIOLOGY/IMAGING (08/01/2021) Anatomical Region Laterality Modality Other us Provider Scanning Final Result documented in this encounter Visit Diagnoses Not on filedocumented in this encounter Care Teams Urogynaecologist Relationship Specialty Start Date End Date Ananth Krishnan MD PCP - General 10/02/16 Ye Grissom III, MD [address] [place] [address] Rheumatology 01/18/17 11/02/23 Lobito Connolly MD [address] [place] [address] Nephrology 05/31/17 Barbara Grover MD [address] [place] [address] Cardiology 01/19/18 Hetal Mclean PA [address] [place] [address] Physician Tack Welder Dermatology 01/19/18 Rell Smith MD [address] [place] [address] [place] [address] Neurology 01/19/18 Cornel Bernal MD [address] [facility] [address] [place] [address] Consulting Physician Rheumatology 02/03/23 11/02/23 Jeffry Tay MD [address] [place] [address] Consulting Physician Rheumatology 08/18/23 documented as of this encounter
--- OUTSIDE RECORDS SUMMARY | 2024-10-04 10:47 | XMS_ITS | Encounter Summary ---
Author Organization [facility] Address [address] [place] [address] Care Team Providers Care Diesel Service Apprentice Name Role Phone Ric Manuel MD Primary Care Provider [phone] Ananth Krishnan MD Primary Care Provider [phone] Encounter Details Date Type Department Care Team (Late st Contact Info) Description 04/02/2020 Lab Requisition [facility] [address] [place] [address] Sabrina Castañ[place] [address] [place] [address] Social History Tobacco Use Types Packs/Day Years Used Date Smoking Tobacco: Never Assessed Sex and Gender Information Value Date Recorded Sex Assigned at Not on file Gender Identity Not on file Sexual Orientation Not on file documented as of this encounter Plan of Treatment Not on file documented as of this encounter Procedures Procedure Name Priority Date/Time Associated Diagnosis Comments DERMATOPATHOLOGY Routine 04/01/2020 12:0 0 AM CDT documented in this encounter Results * DERMATOPATHOLOGY (04/01/2020 12:00 AM CDT) Case Report Dermatopathology Report Case: [id number] Authorizing Provider: Sabrina Castañeda MD Collected: 04/01/2020 12:00 AM Ordering Location: [facility] Received: 04/02/2020 01:16 PM Pathologist: Chaim Beavers MD Specimens: A) - Skin, right cavum jessie B) - Skin, right elbow 0 12:55 PM T DERMATOPATHOLOGY LABORATORY Final Diagnosis Specimen A. SKIN, right cavum jessie: BENIGN VERRUCOUS KERATOSIS, INFLAMED (L82.1) (see microscopic description) Specimen B. 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 0 12:55 PM CDT DERMATOPATHOLOGY LABORATORY Gross Description Specimen A: Received is one formalin filled container labeled with the patient's name and designated right cavum jessie. The specimen consists of a punch biopsy measuring 3x3x2 mm. Jar 0. Specimen B: Received is one formalin filled container labeled with the patient's name and designated right elbow. The specimen consists of a punch biopsy measuring 4x4x4 mm, bisected. Jar 0. 0 12:55 PM [facility] DERMATOPATHOLOGY LABORATORY Microscopic Description Specimen A. SKIN, right cavum jessie: Sections show hyperkeratosis, papillomatosis, hypergranulosis, and acanthosis. Inflammatory cells are present within the dermis. These histological findings can be seen in a verruca vulgaris or a seborrheic keratosis. Additional deeper sections were obtained and reviewed. Specimen B. SKIN, right elbow: There are lymphocytes around blood vessels and histiocytes between collagen bundles some of which are arranged in a palisade. The collagen is focally altered. 0 12:55 PM T DERMATOPATHOLOGY LABORATORY Disclaimer An external and internal positive and negative controls are appropriate for the histochemical, immunohistochemical and immunofluorescence stain(s) in this case (if any), except where stated explicitly. The performance characteristics of the stain(s) cited in this report were developed and its performance characteristic determined by the Dermatopathology Laboratory at [facility], directed by Dr. Stephen Beavers. These tests need not be, and therefore are not, approved by the [place] Food and Drug Administration. The tests are used for clinical purposes. Billing Codes Specimen Charges Stain Charges 36151 28936 1 1 0 12:55 PM CDT DERMATOPATHOLOGY LABORATORY Embedded Images 0 12:55 PM CDT DERMATOPATHOLOGY LABORATORY Pathology/Cytology TISSUE SPECIMEN FROM SKIN / Unknown 04/01/2020 04/02/2020 1:16 PM CDT Miscellaneous samples (specimen) TISSUE SPECIMEN FROM SKIN / Unknown 04/01/2020 04/02/2020 1:16 PM CDT Sabrina Castañeda MD LAB - PATHOLOGY/C YTOLOGY ORDERABLES DERMATOPATHOLOGY LABORATORY [facility] - Department of Dermatology [facility] Specialized Medicine [address] [place] [address], [address] [phone] documented in this encounter Visit Diagnoses Not on filedocumented in this encounter Care Teams Diesel Service Apprentice Relationship Specialty Start Date End Date Ric Manuel MD [address] [place] [address] PCP - General 04/02/20 03/31/22 Ananth Krishnan MD [address] [place] [address] PCP - General 04/01/22 documented as of this encounter
--- OUTSIDE RECORDS SUMMARY | 2024-10-04 10:47 | XMS_ITS | Encounter Summary ---
Author Organization [facility] Address [address] [place] [address] Phone Care Team Providers Care Raise Driller Name Role Phone Ananth Krishnan MD Primary Care Provider [phone] Lobito Connolly MD Unavailable [phone] Barbara Grover MD Unavailable Hetal Mclean Unavailable [phone] Rell Smith MD Unavailable [phone] Jeffry Tay MD Unavailable [phone] Encounter Details Date Type Department Care Team (Late st Contact Info) Description 09/06/2024 Results Follow-Up [facility] [address] [place] [address] Rell Jacobs PA [facility] [place] [address] Social History Tobacco Use Types Packs/Day Years [...] on file 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[employer] Gender Identity Female 01/17/2019 7:57 AM CDT Sexual Orientation Not on file Occupation Industry Job Start Date Job End Date DISABLED Not on file Not on file Not on file documented as of this encounter Plan of Treatment Not on file documented as of this encounter Visit Diagnoses Not on filedocumented in this encounter Care Teams Raise Driller Relationship Specialty Start Date End Date Ananth Krishnan MD PCP - General 10/02/16 Lobito Connolly MD Nephrology 05/31/17 Barbara Grover MD Cardiology 01/19/18 Hetal Mclean PA Physician Finisher Operator Dermatology 01/19/18 Rell Smith MD [address] [facility] [address] [facility] [place] [address] Neurology 01/19/18 Jeffry Tay MD [address] [place] [address] Consulting Physician Rheumatology 08/18/23 documented as of this encounter
--- OUTSIDE RECORDS SUMMARY | 2024-10-04 10:47 | XMS_ITS | Clinical Summary ---
Author Organization [facility] [address] Address [address] [place] [address] Phone Care Team Providers Care Bander Operator Name Role Phone Ananth Krishnan MD Primary Care Provider Lobito Connolly MD Unavailable [phone] Barbara Grover MD Unavailable Hetal Mclean Unavailable [phone] Rell Smith MD Unavailable [phone] Jeffry Tay MD Unavailable [phone] Allergies Active Allergy Reactions Criticality Noted Date [...] BY MOUTH TWICE A DAY 60 tablet 024 2024 Discontinued Hospital, Clinic, or Other Facility Administered Medication Ordered Dose Route Frequency Start Date End Date Status onabotulinumtoxin A (BOTOX) 200 unit injection 200 UnitsIndications:Chronic migraine without aura without status migrainosus, not intractable 200 Units OTHER Once 09/25/2024 09/25/2024 Ended Active Problems Problem Noted Date Diagnosed Date Muscle cramps 08/14/2022 Assessment & Plan (08/14/2022 3:18 PM DIRECTOR TALENT): Recommended increased fluids and electrolytes. Will check magnesium. Chronic right shoulder pain 05/26/2021 Complete tear of right rotator cuff 05/26/2021 Chronic pain of both shoulders 01/21/2021 Assessment & Plan (07/30/2021 3:06 PM DIRECTOR TALENT): Had recent MRI that displayed right shoulder [...] symptoms. Assessment & Plan (07/29/2020 4:37 PM DIRECTOR TALENT): She is scheduled for further evaluation with [...] OA with medial compartment predominance, which is [id number]-[id number] severity Assessment & Plan (09/20/2024 2:32 PM CDT): Left knee x-ray 08/29/2021: Tricompartmental OA with medial compartment predominance, which is rryk-hj-nhaqumbl severity Denies significant knee discomfort since last [...] surgery. Assessment & Plan (06/15/2024 3:12 PM DIRECTOR TALENT): Left knee x-ray 08/29/2021: Tricompartmental OA with medial compartment predominance, which is nqei-hd-[id number] severity Continues to have persistent chronic pain [...] surgery. Assessment & Plan (08/18/2023 3:52 PM DIRECTOR TALENT): Left knee x-ray 08/29/2021: Tricompartmental OA with medial compartment predominance, which is tqpj-sn-lkfecadj severity Continues to have persistent chronic pain [...] OA with medial compartment predominance, which is jtat-hb-ugsdlwys severity Continues to have persistent chronic pain [...] OA with medial compartment predominance, which is ssrj-bd-iicxfwbp severity Continues to have persistent chronic pain [...] evaluation. Assessment & Plan (08/14/2022 3:17 PM DIRECTOR TALENT): Left knee x-ray 08/29/2021: Tricompartmental OA with medial compartment predominance, which is rcpn-ly-ctfuflgx severity Continues to have persistent chronic pain [...] OA with medial compartment predominance, which is bhrg-vx-vhmbescm severity Continues to have persistent chronic pain [...] She did obtain bilateral knee x-rays at [facility] after last visit, although we did not receive these. Will track down these results. She defers a Kenalog intra-articular left knee injection at this time. Could reconsider this symptoms worsened. Assessment & Plan (07/30/2021 3:08 PM DIRECTOR TALENT): Has had some persistent chronic pain in the bilateral knees (L>R) (prior R TKA). Previous went to PT and continues at home PT exercises. Will obtain updated imaging. Could consider L knee ultrasound-guided Kenalog injection depending on x-ray findings. Assessment & Plan (07/07/2019 2:52 PM DIRECTOR TALENT): Pain in the bilateral knees does persist some degree which is exacerbated with activity. History of right TKA, as well as OA in the bilateral knees. Could not tolerate prior injections. Continue at home PT exercises. Symptoms remain stable. Discussed return to PT, which patient defers at this time. Could reconsider if symptoms worsen. Assessment & Plan (05/24/2019 2:44 PM DIRECTOR TALENT): Pain in the bilateral knees does persist [...] 10/05/2018 Assessment & Plan (05/24/2019 2:42 PM DIRECTOR TALENT): Hx of recent URTI, as above. Completed [...] 06/30/2018 Assessment & Plan (06/30/2018 3:15 PM DIRECTOR TALENT): Patient notes worsening pain symptoms in the [...] (06/01/2018): Added automatically from request for surgery [id number] Atherosclerotic heart diseas e of [place] coronary artery without angina pectoris 06/02/2017 Chronic migraine without aur a without status migrainosus, not intractable 05/04/2017 Left foot drop 05/04/2017 Assessment & Plan (05/26/2017 3:18 PM DIRECTOR TALENT): Seeing neurologist and has had ncts/emg as [...] today. Assessment & Plan (06/15/2024 3:12 PM DIRECTOR TALENT): TB neg 12/2019 Stopped Plaquenil in the [...] cessation Assessment & Plan (08/18/2023 3:52 PM DIRECTOR TALENT): TB neg 12/2019 Stopped Plaquenil in the [...] cessation Assessment & Plan (08/14/2022 3:16 PM DIRECTOR TALENT): TB neg 12/2019 Stopped Plaquenil in the [...] infusions Assessment & Plan (07/30/2021 3:06 PM DIRECTOR TALENT): TB neg 12/2019 Stopped Plaquenil in the [...] today Assessment & Plan (07/29/2020 4:36 PM DIRECTOR TALENT): TB neg 12/2019 Stopped Plaquenil in the [...] infusions Assessment & Plan (07/07/2019 2:53 PM DIRECTOR TALENT): TB neg 10/2018 Stopped Plaquenil in the past due to recommendations by Ophthalmology, although eventually was noted that she could resume HCQ therapy. Continue to follow with opthalmology. On CellCept 1000 mg BID, hcq 200 BID, Benlysta infusions Assessment & Plan (05/24/2019 2:43 PM DIRECTOR TALENT): TB neg 10/2018 Stopped Plaquenil in the [...] infusions Assessment & Plan (08/16/2018 4:03 PM DIRECTOR TALENT): TB neg 10/2017 Stopped Plaquenil in the past due to recommendations by Ophthalmology, although recently was noted that she could resume HCQ therapy. Continue to follow with opthalmology. On CellCept 1000 mg b.i.d., Benlysta infusions Assessment & Plan (06/30/2018 3:13 PM DIRECTOR TALENT): TB neg 10/2017 Stopped Plaquenil due to [...] medication. Assessment & Plan (07/23/2017 10:43 AM DIRECTOR TALENT): Hepatitis neg 8/13. Quant gold neg 4/17. Assessment & Plan (05/26/2017 1:01 PM DIRECTOR TALENT): Hepatitis neg 8/13. Quant gold neg 4/17. Assessment & Plan (03/30/2017 4:26 PM CDT): Hepatitis neg 8/13. Quant gold neg 4/17. Assessment & Plan (12/22/2016 2:16 PM CDT): [...] persist. Assessment & Plan (07/29/2020 4:36 PM DIRECTOR TALENT): Remains on Soma 350 mg t.i.d. p.r.n. [...] NSAIDs. Assessment & Plan (08/16/2018 2:27 PM DIRECTOR TALENT): Fairly well controlled with Soma 350 mg t.i.d. P.r.n.. Continue hydrocodone per PCP. Cannot tolerate NSAIDs. Assessment & Plan (06/30/2018 4:18 PM DIRECTOR TALENT): Lower back pain and stiffness continues to be a significant complaint for patient. Will continue Soma 350 mg t.i.d. P.r.n.. Continue hydrocodone per pcp. Cannot tolerate nsaids. Chronic obstructive pulmonary disease 06/07/2015 Overview (10/08/2016): Chronic obstructive lung disease Assessment & Plan (09/20/2024 2:32 PM CDT): Discussed and encouraged smoking cessation. She does have plans to quit smoking. Assessment & Plan (06/15/2024 3:10 PM DIRECTOR TALENT): Discussed and encouraged smoking cessation. She does [...] needed. Assessment & Plan (06/15/2024 3:10 PM DIRECTOR TALENT): CDAI 9. Overall, joints have remained fairly [...] risks. Assessment & Plan (08/18/2023 3:51 PM DIRECTOR TALENT): Adwoa was last seen 04/29/2023, as was [...] needed. Assessment & Plan (08/14/2022 3:16 PM DIRECTOR TALENT): CDAI 8. Last seen 03/2022, as was [...] needed. Assessment & Plan (07/30/2021 3:05 PM DIRECTOR TALENT): Denies significant peripheral joint complaints since last [...] needed. Assessment & Plan (07/29/2020 4:35 PM DIRECTOR TALENT): CDAI 8. Last Benlysta infusion 05/14/2020. Has [...] needed. Assessment & Plan (07/07/2019 2:51 PM DIRECTOR TALENT): CDAI 10. Overall, doing fairly well at [...] [place]. Assessment & Plan (05/24/2019 2:41 PM DIRECTOR TALENT): cdai 12. Patient presents for evaluation to [...] needed. Assessment & Plan (08/16/2018 2:26 PM DIRECTOR TALENT): Moderate CDAI. Overall, patient notes that joints [...] needed. Assessment & Plan (06/30/2018 3:17 PM DIRECTOR TALENT): High CDAI. Patient has noted worsening joint [...] today. Assessment & Plan (07/23/2017 12:02 PM DIRECTOR TALENT): Low disease activity with cellcept and benlysta. Off hcq due to recommendation from the ophthamologist. Can increase cellcept in the future if needed, but will con't with current regimen for now. Labs with infusions. F/u 3 mos, sooner if needed. Assessment & Plan (05/26/2017 3:20 PM DIRECTOR TALENT): High disease activity with hcq, cellcept and [...] exercise. Assessment & Plan (06/15/2024 3:11 PM DIRECTOR TALENT): I continue to suspect this is contributing [...] exercise. Assessment & Plan (08/18/2023 3:52 PM DIRECTOR TALENT): I continue to suspect this is contributing [...] exercise. Assessment & Plan (08/14/2022 3:16 PM DIRECTOR TALENT): Suspect this is contributing to her chronic pain complaints. Will increase Lyrica to 225 mg b.i.d.. Encourage routine exercise. Assessment & Plan (03/10/2022 2:19 PM CDT): Stable. Continue Lyrica 150 mg b.i.d.. Encourage routine exercise. Assessment & Plan (12/04/2021 3:41 PM CDT): Stable. Continue Lyrica 150 mg b.i.d.. Encourage routine exercise. Assessment & Plan (07/30/2021 3:06 PM DIRECTOR TALENT): Stable. Continue Lyrica 150 mg b.i.d.. Encourage routine exercise. Assessment & Plan (01/21/2021 3:07 PM CDT): Stable. Continue Lyrica 150 mg b.i.d.. Encourage routine exercise. Assessment & Plan (10/16/2020 1:48 PM CDT): Stable. Continue Lyrica 150 mg b.i.d.. Encourage routine exercise. Assessment & Plan (07/29/2020 4:36 PM DIRECTOR TALENT): Suspect that this is contributing to some [...] exercise. Assessment & Plan (07/07/2019 2:52 PM DIRECTOR TALENT): Patient was off Lyrica for few weeks and subsequently restarted at 1:50 a.m. b.i.d. with onset of confusion, dizziness. Symptoms resolved after stopping the Lyrica. Will restart Lyrica at 75 mg once daily and titrate up slowly. Continue Elavil 25 mg q.h.s.. Encourage routine exercise. Assessment & Plan (05/24/2019 2:43 PM DIRECTOR TALENT): Stable. Continue lyrica 150 bid, elevil 25 [...] exercise. Assessment & Plan (08/16/2018 2:27 PM DIRECTOR TALENT): Stable. Continue Lyrica 150 mg b.i.d.. Discussed the importance of exercise. Assessment & Plan (06/30/2018 3:11 PM DIRECTOR TALENT): Generalized pain and fatigue symptoms persists, although [...] treatment. Assessment & Plan (07/23/2017 10:43 AM DIRECTOR TALENT): con't with lyrica, amitriptyline, soma. Assessment & Plan (05/26/2017 1:01 PM DIRECTOR TALENT): con't with lyrica, amitriptyline, soma. Assessment & [...] Date Fibrositis 02/28/2013 05/26/2017 Overview (10/07/2016): Fibromyalgia Encounters Date Type Department Care Team Description 09/25/2024 11:30 AM CDT Procedure visit [facility] [address] [place] [address] [address], [place] [id number] Rell Smith MD Chronic migraine without aura without status migrainosus, not intractable 09/20/2024 2:15 PM CDT Office Visit [facility] [address] [place] [phone] Rell Jacobs PA 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) (Primary Dx); Fibromyalgia; Chronic obstructive pulmonary disease, unspecified COPD type (HCC); Chronic pain of both knees; Encounter for long-term (current) use of medications 09/20/2024 Telephone [facility] [address] [place] [address] LeandroHollymyra 09/06/2024 Results Follow-Up [facility] [address] [place] [address] Rell Jacobs PA from Last 3 Months Immunizations Immunization Administration Dates Next Due Influenza, Quadrivalent, Yohana l Culture-based MDCK, Antibiotic Free, Intramuscular 04/01/2020 Influenza, Trivalent, IM (MDV) 06/15/2024,2014,04/04/2014 Surgical History Surgery Date Site/Laterality Comments OTHER SURGICAL HISTORY 07/05/2000 - 07/04/2001 uterine cryo OTHER SURGICAL HISTORY 07/05/2005 - 07/04/2006 L5 - S1 fusion OTHER SURGICAL HISTORY bilateral knee arthoscopies x 3 OTHER SURGICAL HISTORY 07/05/2011 - 07/04/2012 rt rotator cuff tear repair OTHER SURGICAL HISTORY 07/05/2010 - 07/04/2011 rhizotomy L5 - S1 CARPAL TUNNEL RELEASE 07/05/2006 - 07/04/2007 Bilateral Carpal tunnel release SECTION 07/05/1982 - 07/04/1983 section HYSTERECTOMY 07/05/2001 - 07/04/2002 Hysterectomy OTHER SURGICAL HISTORY 07/05/1984 - 07/04/1985 D&C BLADDER SURGERY 07/05/2007 - 07/04/2008 bladder sling HERNIA REPAIR 07/05/1983 - 07/04/1984 Hernia repair CARDIAC CATHETERIZATION cardiac catheterization TONSILLECTOMY Tonsillectomy OTHER SURGICAL HISTORY Left arthroscopy - knee OTHER SURGICAL HISTORY Right Shoulder - rotator cuff repair & biceps tenotomy KNEE ARTHROSCOPY Left Arthroscopy knee BLEPHAROPTOSIS REPAIR EYE SURGERY OTHER SURGICAL HISTORY 04/16/2016 Left Repair of thumb nerve KNEE ARTHROPLASTY 07/05/2015 - 07/04/2016 Right knee osteoarthritis: total knee arthroplasty Medical History Medical History Date Comments Hx Other Medical knee osteoarthr itis; Comments: GLN 06/07/2015 -; Laterality: right Hx Other Medical post laminectom y instability L5-S1; Comments: GLN 06/07/2015 - Hypertension Migraine Lupus (systemic lupus erythe matosus) (HCC) Cataract Asthma Chronic kidney disease stage 3 Arthritis GERD (gastroesophageal reflux disease) Hiatal hernia Depression DDD (degenerative disc disease), cervical Peripheral neuropathy Osteoporosis Hyperlipemia Fibromyalgia CAD (coronary artery disease) mi ld distal LAD disease Morbid obesity (HCC) Family History Medical History Relation Name Comments Prostate cancer Brother Cancer, pros hairston; COPD Father COPD; Cause of : COPD Coronary artery disease Father Daniel nary artery disease; Emphysema Father Emphysema; Caus e of : Emphysema Other Mother gi ulcer perfor ation; Cause of : gi ulcer perforation/perforated gastric ulcer; Cause of : perforated gastric ulcer Arthritis Other 1 Lung disease Other 1 Other Other 1 No family histo ry of Cancer, breast; Colon cancer Other 2 Cancer, colon; GLN 06/07/2015 -cousin Relation Name Status Comments Brother Father Mother (Age 44) Other 1 Other 2 Social History Tobacco Use Types Packs/Day Years [...] on file Legal Sex Female 3:38 AM DIRECTOR TALENT Gender Identity Female 01/17/2019 7:57 AM CDT Sexual Orientation Not on file Occupation Industry Job Start Date Job End Date DISABLED Not on file Not on file Not on file Obstetrics History Last Filed Vital Signs Vital Sign Reading Time Taken Comments Blood Pressure 125/82 09/25/2024 11:22 AM CDT Pulse 78 09/25/2024 11:22 AM CDT Temperature 36.8 C (98.2 F) 07/30/2021 2:06 PM DIRECTOR TALENT Respiratory Rate 18 05/18/2023 9:51 AM DIRECTOR TALENT Oxygen Saturation 95% 09/25/2024 11: 22 AM CDT Inhaled Oxygen Concentration - - Weight 105.8 kg (233 lb 3.2 oz) 025 11:22 AM CDT Height 154.9 cm (5' 0.98 ) 09/25/2024 1 1:22 AM CDT Body Mass Index 44.09 09/25/2024 11:22 AM CDT Plan of Treatment Health Maintenance Due Date Last Done Comments Breast Cancer Screening-Mammogram 1965 Colon Cancer Screening-Colonoscopy 1965 Depression Screening 1965 Hepatitis C Screening 1965 DTaP/Tdap/Td Vaccine (1 - Tdap) 10/20/1975 Hepatitis B Screening 1982 Regular Well Visit/Exam 18-64 1982 Lung Cancer Screening 2014 Pneumococcal vaccine <65 (2 of 2 - PCV) 08/19/2017 08/19/2016 Zoster Vaccine (2 of 2) 12/17/2017 10/22/2017 Covid-19 Vaccine (3 - Pfizer risk series) 12/18/2020 11/20/2020, 10/30/2020 Influenza Vaccine Completed 06/15/2024, , 03/30/2017, Additional history exists Procedures Procedure Name Priority Date/Time Associated Diagnosis Comments C3 COMPLEMENT Routine 09/05/2024 3:07 PM DIRECTOR TALENT 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) Encounter for long-term (current) use of medications PROTEIN / CREATININE RATIO, URINE, RANDOM Routine 09/05/2024 3:07 PM DIRECTOR TALENT 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) Encounter for long-term (current) use of medications ANTI-DOUBLE STRANDED DNA ANTIBODIES Routine 09/05/2024 3:07 PM DIRECTOR TALENT 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) Encounter for long-term (current) use of medications ERYTHROCYTE SEDIMENTATION RATE Routine 09/05/2024 3:07 PM DIRECTOR TALENT 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) Encounter for long-term (current) use of medications CRP (ACUTE PHASE) Routine 09/05/2024 3:0 7 PM DIRECTOR TALENT 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) Encounter for long-term (current) use of medications COMPREHENSIVE METABOLIC PANEL Routine 09/05/2024 3:07 PM DIRECTOR TALENT 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) Encounter for long-term (current) use of medications CBC WITH AUTO DIFFERENTIAL Routine 09/05/2024 3:07 PM DIRECTOR TALENT 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) Encounter for long-term (current) use of medications C4 COMPLEMENT Routine 09/05/2024 3:07 PM DIRECTOR TALENT 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) Encounter for long-term (current) use of medications from Last 3 Months Results * Anti-double stranded DNA abs (09/05/2024 3:07 PM DIRECTOR TALENT) DNA (DS) ab <1 IU/mL [facility] Comment: IU/mL Interpretation < or = 4 Negative 5-9 Indeterminate > or = 10 Positive Blood 09/05/2024 3:07 PM DIRECTOR TALENT 09/05/2024 3:08 PM DIRECTOR TALENT Narrative [facility] - 09/06/2024 7:11 AM DIRECTOR TALENT FASTING:NO FASTING: NO Rell MEAD LAB BLOOD ORDERABLES Fi nal Result [facility] [address] [place] [address] * (ABNORMAL) C4 complement (09/05/2024 3:07 PM DIRECTOR TALENT) Complement component C4C 12(L) 15 - 57 mg/dL [facility] Blood 09/05/2024 3:07 PM DIRECTOR TALENT 09/05/2024 3:08 PM DIRECTOR TALENT Narrative [facility] - 09/06/2024 7:11 AM DIRECTOR TALENT FASTING:NO FASTING: NO us Rell MEAD LAB BLOOD ORDERABLES Fi nal Result [facility] [address] [place] [address] * (ABNORMAL) CBC with auto differential (09/05/2024 3:07 PM DIRECTOR TALENT) WBC 11.6(H) 3.8 - 10.8 Thousand/u L [...] [facility] Blood 09/05/2024 3:07 PM DIRECTOR TALENT 09/05/2024 3:08 PM DIRECTOR TALENT Narrative [facility] - 09/06/2024 7:11 AM DIRECTOR TALENT FASTING:NO FASTING: NO Rell MEAD LAB BLOOD ORDERABLES Fi nal Result Performing Organization Address [facility] Co de Phone Number [facility] [address] [place] [address] * (ABNORMAL) Protein / creatinine ratio, urine, random (09/05/2024 3:07 PM DIRECTOR TALENT) Creatinine, ur 46 20 - 275 mg/dL [facility] Protein/creatin ine ratio 87 24 - 184 mg/g creat [facility] Protein/Creatin ine Ratio 0.087 0.024 - 0.184 mg/mg creat [facility] Protein, ur, quant 4(L) 5 - 24 mg/dL [facility] Urine 09/05/2024 3:07 PM DIRECTOR TALENT 09/05/2024 3:08 PM DIRECTOR TALENT Narrative [facility] - 09/06/2024 7:11 AM DIRECTOR TALENT FASTING:NO FASTING: NO Rell MEAD LAB URINE ORDERABLES Fi nal Result Performing Organization Address [facility] Co de Phone Number [facility] [address] [place] [address] * Erythrocyte sedimentation rate (09/05/2024 3:07 PM DIRECTOR TALENT) Erythrocyte sedimentation rate 16 < OR = 30 mm/h [facility] [place] Blood 09/05/2024 3:07 PM DIRECTOR TALENT 09/05/2024 3:08 PM DIRECTOR TALENT Narrative [facility] - 09/06/2024 7:11 AM DIRECTOR TALENT FASTING:NO FASTING: NO Rell MEAD LAB BLOOD ORDERABLES Fi nal Result Performing Organization Address [facility] Co de Phone Number [facility] [address] [place] [address] * C3 complement (09/05/2024 3:07 PM DIRECTOR TALENT) Complement component C3C 151 83 - 193 mg/dL [facility] Blood 09/05/2024 3:07 PM DIRECTOR TALENT 09/05/2024 3:08 PM DIRECTOR TALENT Narrative [facility] - 09/06/2024 7:11 AM DIRECTOR TALENT FASTING:NO FASTING: NO Rell MEAD LAB BLOOD ORDERABLES Fi nal Result [facility] [address] [place] [address] * CRP (acute phase) (09/05/2024 3:07 PM DIRECTOR TALENT) Pathologist [facility] C-RP <5.0 <8.0 mg/L [facility] Blood 09/05/2024 3:07 PM DIRECTOR TALENT 09/05/2024 3:08 PM DIRECTOR TALENT Narrative [facility] - 09/06/2024 7:11 AM DIRECTOR TALENT FASTING:NO FASTING: NO Rell MEAD LAB BLOOD ORDERABLES Fi nal Result Performing Organization Address City/[facility]/ZIP Co de Phone Number [facility] [address] [place] [address] * (ABNORMAL) Comprehensive metabolic panel (09/05/2024 3:07 PM DIRECTOR TALENT) Glucose 88 65 - 139 mg/dL [facility] Comment: Non-fasting reference interval BUN 10 7 - 25 mg/dL [facility] Creatinine 1.10(H) 0.50 - 1.03 mg/dL [facility] eGFR 58(L) > OR = 60 mL/min/1.7 3m2 [facility] BUN/creat ratio 9 6 - 22 (calc) [facility] Sodium 139 135 - 146 mmol/L [facility] Potassium, pl 4.1 3.5 - 5.3 mmol/L [facility] Chloride 104 98 - 110 mmol/L [facility] CO2 27 20 - 32 mmol/L [facility] Calcium 9.1 8.6 - 10.4 mg/dL [facility] Protein, sr 6.4 6.1 - 8.1 g/dL [facility] Albumin 4.0 3.6 - 5.1 g/dL [facility] GLOBULIN 2.4 1.9 - 3.7 g/dL (calc) [facility] Alb/glob ratio 1.7 1.0 - 2.5 (calc) [facility] Bilirubin, total 0.3 0.2 - 1.2 mg/dL [facility] Alk phos 92 37 - 153 U/L [facility] AST 15 10 - 35 U/L [facility] ALT (SGPT) 5(L) 6 - 29 U/L [facility] Blood 09/05/2024 3:07 PM DIRECTOR TALENT 09/05/2024 3:08 PM DIRECTOR TALENT Narrative [facility] - 09/06/2024 7:11 AM DIRECTOR TALENT FASTING:NO FASTING: NO Rell MEAD LAB BLOOD ORDERABLES nal Result Performing Organization Address City/State/[facility] Co de Phone Number [facility] [address] [place] [address] from Last 3 Months Insurance T MEDICARE [employer] MEDICARE FORMERLY [facility] MEDICARE FORMERLY [facility] MEDICARE Care Teams Bander Operator Relationship Specialty Start Date End Date Ananth Krishnan MD PCP - General 10/02/16 Lobito Connolly MD Nephrology 05/31/17 Barbara Grover MD Cardiology 01/19/18 Hetal Mclean PA Physician Railway Engineer Dermatology 01/19/18 Rell Smith MD [address] [place] [address] [address] [facility] [address] Neurology 01/19/18 Jeffry Tay MD [facility] [place] [address] Consulting Physician Rheumatology 08/18/23
--- OUTSIDE RECORDS SUMMARY | 2024-10-04 10:47 | XMS_ITS | Clinical Summary ---
Author Organization [facility] Address [address], [address] [address] Phone Care Team Providers Care [employer] Clerk Name Role Phone Ric Manuel MD Primary Care Provider [phone] Hipolito Roa DO Unavailable [phone] Allergies Active Allergy Reactions Criticality Noted Date Comments Bupropion Unknown 10/08/2015 Bupropion Hcl Unknown 10/08/2015 Medications escitalopram (LEXAPRO) 20 MG Tablet Take 20 mg by mouth daily. Active vitamin b-12 (CYANOCOBALAMIN ) 500 MCG Tablet Take 500 mcg by mouth daily. Active Cholecalciferol (VITAMIN D PO) Take 50,000 Units by mouth once a week. Active topiramate (TOPAMAX) 100 MG Tablet Take 100 mg by mouth 2 times daily. Active amitriptyline (ELAVIL) 25 MG Tablet Take 25 mg by mouth nightly. Active omeprazole (PRILOSEC) 10 MG CAPSULE DELAYED RELEASE Take 10 mg by mouth daily. Active pregabalin (LYRICA) 50 MG Capsule Take 50 mg by mouth 2 times daily. Active QUEtiapine (SEROQUEL) 200 MG Tablet Take 200 mg by mouth daily. Active hydroxychloroqu ine (PLAQUENIL) 200 MG Tablet Take 400 mg by mouth 2 times daily. Active mycophenolate (CELLCEPT) 500 MG Tablet Take 500 mg by mouth 2 times daily. Active sodium chloride 0.9 % SOLN 250 mL with belimumab 120 MG SOLR 10 mg/kg 10 mg/kg by Intravenous route every 30 days. Active Social History Tobacco Use Types Packs/Day Years Used Date Smoking Tobacco: Never Assessed Comments Unknown Sex and Gender Information Value Date Recorded Sex Assigned at Not on file Legal Sex Female 3:09 PM [employer] Gender Identity Not on file Sexual Orientation Not on file Plan of Treatment Health Maintenance Due Date Last Done Comments Hepatitis C Virus (HCV) Screening 1964 TdaP Immunization 1964 SARS-COV-2 Immunization (#1) 1969 Hepatitis B Immunization (1 of 3 - 19+ 3-dose series) 10/20/1983 Zoster Immunization (1 of 2) 10/20/1983 Pap Smear 1985 Cervical Cancer Screening (CCS) 1994 HPV/Cotest 1994 Cologuard 2014 Immunochemical Fecal Occult Blood 2014 Mammogram 2014 Pneumococcal Immunization (5 0+ years) (1 of 1 - PCV) 2014 Influenza Immunization (#1) 2024 Colonoscopy 10/02/2025 10/03/2015 Colorectal Cancer Screening 10/02/2025 Respiratory Syncytial Virus (RSV) Immunization (Adult) (1 - 1-dose 75+ series) 10/20/2039 10/03/2015 Meningococcal Immunization (ACWY) Aged Out No longer eligible based on patient's age to complete this topic Pneumococcal Immunization Combined Aged Out No longer eligible based on patient's age to complete this topic Rotavirus Immunization Aged Out No lo nger eligible based on patient's age to complete this topic Procedures Procedure Name Priority Date/Time Associated Diagnosis Comments COLONOSCOPY Routine 10/03/2015 from Last 3 Months or Most Recently Relevant to Health Maintenance Results * COLONOSCOPY (10/03/2015) [facility] PROCEDURE/MINOR SURGICAL ORDERAB LES Final Result from Last 3 Months or Most Recently Relevant to Health Maintenance [place] [place] [address] Care Teams [employer] Clerk Relationship Specialty Start Date End Date Ric Manuel MD [address] [employer] [address] [place] [id number] PCP - General Family Medicine 10/03/15 Hipolito Roa DO [address] [employer] [address] [place] [id number] Gastroenterology 10/03/15
--- OUTSIDE RECORDS SUMMARY | 2024-10-04 10:47 | XMS_ITS | Clinical Summary ---
Author Organization [facility] Address [address] [place] [phone] Phone Care Team Providers Care Director Export Name Role Phone Ananth Krishnan MD Primary Care Provider [phone] Allergies Active Allergy Reactions Criticality Noted Date Comments Bupropion Hcl Linezolid Medications Medication Sig Dispensed Refills Start Date End Date Status QUEtiapine (SEROQUEL) 200 MG tablet One tablet daily 0 10/30/2016 Activ e fluticasone-vilantero l (BREO ELLIPTA) 100-25 MCG/INH inhaler One Inh. daily 0 10/30/2016 Active mycophenolate (CELLCEPT) 500 MG tablet Two tablets two times daily 0 10/30/2016 Active pregabalin (LYRICA) 50 MG capsule One capsule two times daily 0 10/30/2016 Active Additional Information Patient taking differently: 50 mgOralDaily, Reported on 09/12/2024 carisoprodol (SOMA) 350 MG tablet One tablet three times daily 0 10/30/2016 Active albuterol HFA (VENTOLIN HFA) 108 (90 Base) MCG/ACT inhaler two times daily, as needed 0 10/30/2016 Active Belimumab (BENLYSTA) 120 MG reconstituted solution 0 10/30/2016 Active fluticasone (FLONASE) 50 MCG/ACT nasal spray two times daily, as needed 0 10/30/2016 Active escitalopram (LEXAPRO) 20 MG tablet Take 20 mg by mouth 1 (one) time each day. Active rosuvastatin (CRESTOR) 10 MG tablet Take 10 mg by mouth 1 (one) time each day. Active omeprazole (PriLOSEC) [address] capsule TAKE 1 CAPSULE BY MOUTH EVERY DAY BEFORE A MEAL 05/29/2019 Active HYDROcodone-acetamino phen (LORCET PLUS) 10-325 MG per tablet Take 1 tablet by mouth every 4 (four) hours if needed for moderate pain Active sacubitril-valsartan (Entresto) 24-26 MG per tablet Take 1 tablet by mouth in the morning and 1 tablet in the evening. 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 Hyperlipidemia 03/17/2016 02/06/2020 Encounters Date Type Department Care Team Description 09/05/2024 Orders Only [facility] [address] [facility] [place] [address] Lobito Connolly MD from Last 3 Months Immunizations Name Administration Dates Next Due Influenza TIV (IM) 06/08/2016,04/16/2015 Family History Medical History Relation Comments Kidney disease Mother Relation Status Comments Mother Social History Tobacco Use Types Packs/Day Years Used Date Smoking Tobacco: Every Day Smokeless Tobacco: Never Tobacco Cessation:Ready to Q uit: Not Asked; Counseling Given: Not Answered Alcohol Use Standard Drinks/Week Comments Yes 0 (1 standard drink = 0.6 oz pur e alcohol) occasionally Sex and Gender Information Value Date Recorded Sex Assigned at Not on file Gender Identity Not on file Sexual Orientation Not on file Last Filed Vital Signs Vital Sign Reading Time Taken Comments Blood Pressure 137/72 09/12/2024 2:17 PM CDT Pulse 85 09/12/2024 2:17 PM CDT Temperature - - Respiratory Rate - - Oxygen Saturation - - Inhaled Oxygen Concentration - - Weight 107 kg (235 lb) 09/12/2024 2:17 PM CDT Height 160 cm (5' 3 ) 09/12/2024 2:17 PM CDT Body Mass Index 41.63 09/12/2024 2:17 PM CDT Plan of Treatment Upcoming Encounters Date Type Department Care Team ([facility] st Contact Info) Description 09/11/2025 12:20 PM CDT Office Visit [facility] [address] [facility], [address] [place] [address] Lobito Connolly MD [address] [facility] [address] [place] [address] Health Maintenance Due Date Last Done Comments Pneumococcal PPSV23 Highest Risk Adult (1 of 3 - PCV13) 10/20/1983 Influenza Vaccine Completed 06/15/2024, , 06/08/2016, Additional history exists Procedures Procedure Name Priority Date/Time Associated Diagnosis Comments COMPLEMENT TOTAL (CH50) Routine 09/05/2024 2:10 PM BREAD MOLDER PTH INTACT W/O CALCIUM, SERUM Routine 09/05/2024 2:10 PM BREAD MOLDER DSDNA AB, SERUM Routine 09/05/2024 2:10 PM BREAD MOLDER URINALYSIS, COMPLETE W/RFL CULTURE (REFL) Routine 09/05/2024 2:10 PM BREAD MOLDER MICROALBUMIN, RANDOM URINE WITH CREATININE Routine 09/05/2024 2:10 PM BREAD MOLDER COMPLEMENT C4 Routine 09/05/2024 2:10 PM BREAD MOLDER COMPLEMENT C3 Routine 09/05/2024 2:10 PM BREAD MOLDER RENAL FUNCTION PANEL (RFP) Routine 09/05/2024 2:10 PM BREAD MOLDER CBC (INCLUDES PLATELETS / NO DIFFERENTIAL) Routine 09/05/2024 2:10 PM BREAD MOLDER from Last 3 Months Results * Albumin, Random Urine with Creatinine (09/05/2024 2:10 PM BREAD MOLDER) Creatinine, Urine 45 20 - 275 mg/dL [facility]) Microalbumin, Urine 0.7 See Note: mg/dL [facility]) Comment: Reference Range: Reference Range Not established Albumin/Creatinine , Urine 16 <30 mg/g creat [facility]) Comment: The ADA defines abnormalities in albumin excretion as follows: Albuminuria Category Result (mg/g creatinine) Normal to Mildly increased <30 Moderately increased 30-299 Severely increased > OR = 300 The ADA recommends that at least two of three specimens collected within a 3-6 month period be abnormal before considering a patient to be within a diagnostic category. 09/05/2024 2:10 PM BREAD MOLDER 09/05/2024 2:20 PM BREAD MOLDER Narrative [facility] ([facility]) - 09/06/2024 11:18 PM BREAD MOLDER FASTING:NO FASTING: NO Resulting Agency Comment Performing Organization Information: Site ID: [place] Name: [facility] Address: [address] [address] Director: Evaristo Scott MD Lobito Connolly MD LAB URINE ORDERABLES [facility] ([facility]) * (ABNORMAL) CBC (includes Platelets / NO Differential) (09/05/2024 2:10 PM BREAD MOLDER) Leukocytes, Blood 11.4(H) 3.8 - 10.8 Thousand/u L [facility]) Erythrocytes (RBC) 4.16 3.80 - 5.10 Million/uL [facility]) Hemoglobin (HGB) 12.6 11.7 - 15.5 g/dL [facility]) Hematocrit (HCT) 38.8 35.0 - 45.0 % [facility]) MCV 93.3 80.0 - 100.[address] [facility]) MCH 30.3 27.0 - 33.[address] [facility]) MCHC 32.5 32.0 - 36.0 g/dL [facility]) Comment: For adults, a slight decrease in the calculated MCHC value (in the range of 30 to 32 g/dL) is most likely not clinically significant; however, it should be interpreted with caution in correlation with other red cell parameters and the patient's clinical condition. Erythrocyte Distribution Width (RDW) 14.3 11.0 - 15.0 % [facility] Platelets, Blood 247 140 - 400 Thousand/u L [facility]) Platelet mean volume, Blood 10.9 7.5 - 12.5 fL [facility]) 09/05/2024 2:10 PM BREAD MOLDER 09/05/2024 2:20 PM BREAD MOLDER Narrative [facility] ([facility]) - 09/06/2024 11:18 PM BREAD MOLDER FASTING:NO FASTING: NO Resulting Agency Comment Performing Organization Information: Site ID: Name: [id number] Address: [address] [address] Director: Evaristo Scott Lobito Connolly MD LAB BLOOD ORDERABLES [facility] * Complement C3 (09/05/2024 2:10 PM BREAD MOLDER) Complement C3, Serum/Plasma 152 83 - 193 mg/dL [facility] 09/05/2024 2:1 0 PM BREAD MOLDER 09/05/2024 2:20 PM BREAD MOLDER Narrative [facility] ([facility]) - 09/06/2024 11:18 PM BREAD MOLDER FASTING:NO FASTING: NO Resulting Agency Comment Performing Organization Information: Site ID: [place] Name: [id number] Address: [address] [facility] [place] [address] Director: Evaristo Scott MD Lobito Connolly MD LAB BLOOD ORDERABLES [facility] ([facility]) * (ABNORMAL) URINALYSIS, COMPLETE$W/RFL CULTURE (REFL) (09/05/2024 2:10 PM BREAD MOLDER) Color of Urine YELLOW YELLOW [facility] ([facility]) Appearance of Urine CLEAR CLEAR [facility] ([facility]) Specific gravity of Urine 1.006 1.001 - 1.[address] [facility] ([facility]) pH of Urine 6.0 5.0 - 8.[address] [facility]) Glucose, Urine NEGATIVE NEGATIVE [facility]) Bilirubin, total, Urine NEGATIVE NEGATIVE [facility]) Ketones, Urine NEGATIVE NEGATIVE [facility]) Hemoglobin, Urine NEGATIVE NEGATIVE [facility]) Protein, Urine NEGATIVE NEGATIVE [facility]) Nitrite, Urine NEGATIVE NEGATIVE [facility]) Leukocyte esterase, Urine TRACE(A) NEGATIVE [facility]) Leukocytes, Urine sediment 0-5 < OR = 5 /HPF [facility]) Erythrocytes, Urine sediment NONE SEEN < OR = 2 /HPF [facility]) Epithelial cells, squamous, Urine sediment 0-5 < OR = 5 /HPF [facility]) Bacteria, Urine sediment NONE SEEN NONE SEEN /HPF [facility]) Hyaline casts, Urine sediment NONE SEEN NONE SEEN /LPF [facility]) Service comment [facility] Comment: This urine was analyzed for the presence of WBC, RBC, bacteria, casts, and other formed elements. Only those elements seen were reported. Bacteria identified, Urine [facility] Comment:CULTURE INDICATED - RESULTS TO FOLLOW Culture, Urine, Routine [facility]) Comment: CULTURE, URINE, ROUTINE Micro Number: [id number] Test Status: Final Specimen Source: Urine Specimen Quality: Adequate Result: Mixed genital calixto isolated. These superficial bacteria are not indicative of a urinary tract infection. No further organism identification is warranted on this specimen. If clinically indicated, recollect clean-catch, mid-stream urine and transfer immediately to Urine Culture Transport Tube. 09/05/2024 2:10 PM BREAD MOLDER 09/05/2024 2:20 PM BREAD MOLDER Narrative [facility] ([facility] - 09/06/2024 11:18 PM BREAD MOLDER FASTING:NO FASTING: NO Resulting Agency Comment Performing Organization Information: Site ID: [place] Name: [facility] Address: [address] [address] Director: Evaristo Scott MD Lobito Connolly MD LAB URINE ORDERABLES [facility] * (ABNORMAL) Renal Function Panel (RFP) (09/05/2024 2:10 PM BREAD MOLDER) Glucose, Serum/Plasma 90 65 - 139 mg/dL [facility] ([facility]) Comment: Non-fasting reference interval Urea nitrogen, Serum/Plasma (BUN) 10 7 - 25 mg/dL [facility] ([facility]) Creatinine, Serum/Plasma 1.10(H) 0.50 - 1.03 mg/dL [facility] ([facility]) Estimated Glomerular Filtration Rate (eGFR) 58(L) > OR = 60 mL/min/1.7 3m2 [facility] ([facility]) Urea nitrogen/Creati nine, Serum/Plasma 9 6 - 22 (calc) [facility] ([facility]) Sodium, Serum/Plasma 139 135 - 146 mmol/L [facility] ([facility]) Potassium, Serum/Plasma 4.2 3.5 - 5.3 mmol/L [facility] ([facility]) Chloride, Serum/Plasma 104 98 - 110 mmol/L [facility] ([facility]) Carbon dioxide CO2), total, Serum/Plasma 28 20 - 32 mmol/L [facility] ([facility]) Calcium, Serum/Plasma 9.2 8.6 - 10.4 mg/dL [facility] ([facility]) Phosphate, Serum/Plasma 3.7 2.5 - 4.5 mg/dL [facility] ([facility]) Albumin, Serum/Plasma 4.0 3.6 - 5.1 g/dL [facility] ([facility]) 09/05/2024 2:10 PM BREAD MOLDER 09/05/2024 2:20 PM BREAD MOLDER Narrative [facility] ([facility]) - 09/06/2024 11:18 PM BREAD MOLDER FASTING:NO FASTING: NO Resulting Agency Comment Performing Organization Information: Site ID: Name: [facility] Address: [address] [place] [address] Director: Evaristo Scott Lobito Connolly MD LAB BLOOD ORDERABLES [facility] [place] ([facility]) * Complement Total (CH50) (09/05/2024 2:10 PM BREAD MOLDER) Complement total hemolytic CH50, Serum/Plasma 58 31 - 60 U/mL [facility] 09/05/2024 2:10 PM BREAD MOLDER 09/05/2024 2:20 PM BREAD MOLDER Narrative [facility] ([facility]) - 09/06/2024 11:18 PM BREAD MOLDER FASTING:NO FASTING: NO Resulting Agency Comment Performing Organization Information: Site ID: [place] Name: [id number] Address: [address] [place] [address] Director: Evaristo Scott MD Lobito Connolly MD LAB BLOOD ORDERABLES [facility] [place] ([facility]) * (ABNORMAL) Complement C4 (09/05/2024 2:10 PM BREAD MOLDER) Complement C4, Serum/Plasma 12(L) 15 - 57 mg/dL [facility] [place] (ST) 09/05/2024 2:10 PM BREAD MOLDER 09/05/2024 2:20 PM BREAD MOLDER Narrative [facility]) - 09/06/2024 11:18 PM BREAD MOLDER FASTING:NO FASTING: NO Resulting Agency Comment Performing Organization Information: Site ID: [id number] Name: [id number] Address: [address] [place] [phone] Director: Evaristo Scott MD Lobito Connolly MD LAB BLOOD ORDERABLES Performing Organization Address [facility] de Phone Number [facility] * dsDNA AB, Serum (09/05/2024 2:10 PM BREAD MOLDER) DNA double strand Ab, Serum <1 IU/mL [facility] ([facility]) Comment: IU/mL Interpretation < or = 4 Negative 5-9 Indeterminate > or = 10 Positive 09/05/2024 2:10 PM BREAD MOLDER 09/05/2024 2:20 PM BREAD MOLDER Narrative [facility] ([facility]) - 09/06/2024 11:18 PM BREAD MOLDER FASTING:NO FASTING: NO Resulting Agency Comment Performing Organization Information: Site ID: [id number] Name: [id number] Address: [address] [place] [phone] Director: Evaristo Scott MD Lobito Connolly MD LAB BLOOD ORDERABLES Performing Organization Address [facility] Co de Phone Number [facility] * PTH Intact, Serum (09/05/2024 2:10 PM BREAD MOLDER) PTH, Intact, Serum/Plasma 37 16 - 77 pg/mL [facility] Comment: Interpretive Guide Intact PTH Calcium ------- Normal Parathyroid Normal Normal Hypoparathyroidism Low or Low Normal Low Hyperparathyroidism Primary Normal or High High Secondary High Normal or Low Tertiary High High Non-Parathyroid Hypercalcemia Low or Low Normal High 09/05/2024 2:10 PM BREAD MOLDER 09/05/2024 2:20 PM BREAD MOLDER [facility]ative [facility] - 09/06/2024 11:18 PM BREAD MOLDER FASTING:NO FASTING: NO Resulting Agency Comment Performing Organization Information: Site ID: [place] Name: [facility] Address: [address] [address] Director: Evaristo Scott MD Lobito Connolly MD LAB BLOOD ORDERABLES [facility] ([facility]) from Last 3 Months Care Teams Director Export Relationship Specialty Start Date End Date Ananth Krishnan MD [address] [place] [address] PCP - General 12/28/18
== END 2024-10-04 09:51 | disposition home or self-care (01) ==
LOC: ANHAUDIO 09:50
PROVIDERS: PCP Emergency Medicine; Visit Provider Otolaryngology
DX: H65.493 Other chronic nonsuppurative otitis media, bilateral (principal); H69.90 Unspecified Eustachian tube disorder, unspecified ear; J34.89 Other specified disorders of nose and nasal sinuses; J32.2 Chronic ethmoidal sinusitis; H90.3 Sensorineural hearing loss, bilateral
CPT/HCPCS: 92557; 92567

== ENCOUNTER 2025-06-06 16:18 | Outpatient (CLI) | payer MEDICARE, SELFPAY ==
--- NOTE | ~2025-06-06 | CT_ITS ---
EXAMINATION: CT lung screening DATE: 06/06/2025 16:46 INDICATION: Nicotine dependence. TECHNIQUE: Computed tomography (CT) of the chest was performed without intravenous contrast. The dose-length product was 353.12 mGy-cm. Automated exposure control and iterative reconstruction technique were employed. COMPARISON: CT dated 03/20/2024 FINDINGS: stable 3 mm fissural nodule on the left. There is linear consolidation of the right upper lobe adjacent to the fissure which may represent atelectasis or developing pneumonia. There is emphysema. No endobronchial lesions. There is consolidation in the right upper lobe with peribronchial thickening. No pneumothorax. There is focal linear infiltrates of the left lower lobe. IMPRESSION: 1. Lung-RADS category 2: Benign appearance or behavior. Continue annual screening with noncontrast low-dose chest CT in 12 months. 2: Focal linear consolidation right upper, right lower and left lower lobes which may represent atelectasis/scarring or less likely developing pneumonia. Reviewed, dictated and finalized at location I. EDGER IMPRESSION: 1. Lung-RADS category 2: Benign appearance or behavior. Continue annual screeni ng with noncontrast low-dose chest CT in 12 months. 2: Focal linear consolidation right upper, right lower and left lower lobes wh ich may represent atelectasis/scarring or less likely developing pneumonia.
--- OUTSIDE RECORDS SUMMARY | 2025-06-06 17:09 | XMS_ITS | Clinical Summary ---
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 Gender Identity Not on file Sexual Orientation Not on file Plan of Treatment Health Maintenance Due Date Last Done Comments Hepatitis C Virus (HCV) Screening 1965 TdaP Immunization 1964 SARS-COV-2 Immunization (#1) 1969 Zoster Immunization (1 of 2) 10/20/1983 Pap Smear 1985 Cervical Cancer Screening (CCS) 1994 HPV/Cotest 1994 Cologuard 2009 Immunochemical Fecal Occult Blood 2009 Pneumococcal Immunization (5 0+ years) (1 of 1 - PCV) 2014 Respiratory Syncytial Virus (RSV) Immunization (Adult) (1 - Risk 60-74 years 1-dose series) 2024 Influenza Immunization (#1) 2025 Colonoscopy 10/02/2025 10/03/2015 Colorectal Cancer Screening 10/02/2025 Hepatitis B Immunization Aged Out No longer eligible based on patient's age to complete this topic Human Papillomavirus (HPV) Immunization Aged Out No longer eligible b ased on patient's age to complete this topic Meningococcal Immunization (ACWY) Aged Out No longer eligible based on patient's age to complete this topic Rotavirus Immunization Aged Out No lo nger eligible based on patient's age to complete this topic Procedures Procedure Name Priority Date/Time Associated Diagnosis Comments COLONOSCOPY Routine 10/03/2015 from Last 3 Months or Most Recently Relevant to Health Maintenance Results * COLONOSCOPY (10/03/2015) [facility] PROCEDURE/MINOR SURGICAL ORDERAB LES Final Result from Last 3 Months or Most Recently Relevant to Health Maintenance [place] [place] [address] Care Teams Health Professor Relationship Specialty Start Date End Date Ric Manuel MD [address] [employer] [address] [place] [address] PCP - General Family Medicine 10/03/15 Hipolito Roa DO [address] [employer] [address] [place] [address] Gastroenterology 10/03/15
--- OUTSIDE RECORDS SUMMARY | 2025-06-06 17:09 | XMS_ITS | Clinical Summary ---
Author Organization [id number] Address [address] [place] [address] Phone Care Team Providers Care Job Site Supervisor Name Role Phone Ananth Krishnan MD Primary Care Provider [phone] Lobito Connolly MD Unavailable [phone] Barbara Grover MD Unavailable Hetal Mclean Unavailable [phone] Rell Smith MD Unavailable [phone] Jeffry Tay MD Unavailable [phone] Allergies Active Allergy Reactions Criticality Noted Date Comments Bupropion Hives High 03/16/2013 Hylan G-F 20 Swelling Medium Levofloxacin Palpitations Low 09/18/2019 Heart racing, SOB Linezolid Hives,Other (See comments) Medium 6 unknown Medications albuterol HFA (VENTOLIN HFA) 90 mcg/actuation inhaler inhale 3 puff by INHALATION route every 4 - 6 hours as needed 0 Inhaler 0 06/07/20 15 Active Additional Information Patient taking differently: 2 puff inhalation 2 times daily PRN, shortness of breath, wheezing, Indications: Chronic Obstructive Pulmonary Disease, Informant: Self, Reported on 03/15/2025 escitalopram (LEXAPRO) 20 mg tablet take 1 tablet by oral route every day 0 0 12/12/19 15 Active Additional Information Patient taking differently:20 mgoral Nightly, Indications: Anxiety with Depression, Informant: Self, Reported on 03/21/2025 fluticasone (FLONASE ALLERGY RELIEF) 50 mcg/actuation nasal spray 0 spray 0 03/13/20 15 Active HYDROcodone-jaki taminophen (LORCET PLUS) 10-325 mg per tablet take 1 tablet by oral route 4 times every day as needed for pain 0 0 02/29/20 13 Active Additional Information Patient taking differently: 1 tablet oral Every 4 hours PRN, pain, Indications: Pain, Informant: Self, Reported on 03/15/2025 ergocalciferol (VITAMIN D2) 50,000 unit capsule take 1 capsule by oral route every week 0 0 02/29/20 13 Active Additional Information Patient taking differently: 50,000 Units oral Weekly, Every wednesday, Indications: Vitamin D Deficiency, on Wednesday, Informant: Self, Reported on 03/15/2025 omeprazole (PriLOSEC) 20 mg capsuleIndicati ons:Stress Ulcer Prophylaxis Take 1 capsule (20 mg total) by mouth every morning 08/09/19 18 Active onabotulinumtox in A (BOTOX) 100 unit recon solnIndications :Migraine Prevention,And Lupus Inject 100 Units into the muscle as instructed every 3 (three) months EVERY 3 MONTHS Next dose is 03/13/2025 Active oxygenIndicatio ns:Dyspnea,dysp armen Administer 10 L/min into each nostril nightly at 600,000 mL/hr 10 Liters Nightly and 2-3 Liters when shortness of breath/activit y Active rosuvastatin (CRESTOR) 10 mg tabletIndicatio ns:hyperlipidem ia Take 1 tablet (10 mg total) by mouth nightly Active loratadine (CLARITIN) 10 mg tabletIndicatio ns:Allergic Rhinitis Take 1 tablet (10 mg total) by mouth nightly 05/06/20 20 Active rOPINIRole (REQUIP) 1 mg tabletIndicatio ns:Restless Legs Syndrome Take 1 tablet (1 mg total) by mouth nightly 01/01/20 23 Active SUMAtriptan (IMITREX) 100 mg tablet Take 1 tablet (100 mg total) by mouth every 2 (two) hours as needed for migraine No more than 2 tablets in 24 hours. 9 tablet 11 05/18/20 23 Active Additional Information Patient taking differently:100 mg oral Every 2 hours PRN, migraine, No more than 2 tablets in 24 hours.,Indications: Migraine, Informant: Self, Reported on 03/15/2025 Entresto 24-26 mg tabletIndicatio ns:heart Take 1 tablet by mouth 2 (two) times a day Active fluticasone-ume clidin-vilanter (Trelegy Ellipta) 100-62.5-25 mcg inhalerIndicati ons:Bronchospas m Prevention with COPD Inhale 1 puff early interventionist before breakfast Active acetaminophen (TYLENOL) 500 mg tabletIndicatio ns:Headache Disorder,Pain Take 2 tablets (1,000 mg total) by mouth every 6 (six) hours as needed for pain or headaches Active hydroxychloroqu ine (PLAQUENIL) 200 mg tablet Take 1 tablet (200 mg total) by mouth 2 (two) times a day 180 tablet 02/28/20 25 Active Additional Information Patient taking differently:200 mg oral 2 times daily,Indications: Systemic Lupus Erythematosus, Informant: Self, Reported on 03/21/2025 bromfenac 0.09 % ophthalmic solutionIndicat ions:Post-Op Ocular Inflammation Administer 1 drop into the left eye every morning To start on Wednesday03/18/25 02/22/20 25 Active moxifloxacin (VIGAMOX) 0.5 % ophthalmic solution Administer 1 drop into the left eye 4 (four) times a day To start on Wednesday03/18/25 02/20/20 25 Active prednisoLONE acetate (PRED FORTE) 1 % ophthalmic suspensionIndic ations:Severe Ocular Inflammation Administer 1 drop into the right eye 3 (three) times a day 02/21/20 25 Active QUEtiapine (SEROquel) 300 mg tabletIndicatio ns:Depression Treatment Adjunct,insomni a Take 1 tablet (300 mg total) by mouth nightly 02/06/20 25 Active diphenhydrAMINE (Benadryl Allergy) 25 mg capsuleIndicati ons:allergies Take 1 tablet/capsule (25 mg total) by mouth as needed for allergies Active pregabalin (LYRICA) 150 mg capsule TAKE 1 CAPSULE BY MOUTH TWICE A DAY 60 capsule 2 04/06/20 25 Active mycophenolate mofetil (CELLCEPT) 500 mg tablet TAKE 2 TABLETS BY MOUTH TWICE A DAY 360 tablet 06/04/20 25 Active mycophenolate mofetil (CELLCEPT) 500 mg tablet Take 2 tablets (1,000 mg total) by mouth 2 (two) times a day 360 tablet 02/28/20 25 025 Discontinued Active Problems Problem Noted Date Diagnosed Date Nuclear sclerotic cataract of left eye 5 Muscle cramps 08/14/2022 Assessment & Plan (08/14/2022 3:18 PM ROVING INSPECTOR): Recommended increased fluids and electrolytes. Will check magnesium. Chronic right shoulder pain 05/26/2021 Complete tear of right rotator cuff 05/26/2021 Chronic pain of both shoulders 01/21/2021 Assessment & Plan (07/30/2021 3:06 PM ROVING INSPECTOR): Had recent MRI that displayed right shoulder [...] symptoms. Assessment & Plan (07/29/2020 4:37 PM ROVING INSPECTOR): She is scheduled for further evaluation with [...] OA with medial compartment predominance, which is vtma-jx-zliegcpt severity Assessment & Plan (09/20/2024 2:32 PM CDT): Left knee x-ray 08/29/2021: Tricompartmental OA with medial compartment predominance, which is tbbx-gv-tfvuoqhe severity Denies significant knee discomfort since last [...] surgery. Assessment & Plan (06/15/2024 3:12 PM ROVING INSPECTOR): Left knee x-ray 08/29/2021: Tricompartmental OA with medial compartment predominance, which is yslq-li-capnsjmx severity Continues to have persistent chronic pain [...] surgery. Assessment & Plan (08/18/2023 3:52 PM ROVING INSPECTOR): Left knee x-ray 08/29/2021: Tricompartmental OA with medial compartment predominance, which is scmh-kx-cvphowjw severity Continues to have persistent chronic pain [...] OA with medial compartment predominance, which is zwsy-fb-nyrcpceu severity Continues to have persistent chronic pain [...] OA with medial compartment predominance, which is lpty-ya-qohoants severity Continues to have persistent chronic pain [...] evaluation. Assessment & Plan (08/14/2022 3:17 PM ROVING INSPECTOR): Left knee x-ray 08/29/2021: Tricompartmental OA with medial compartment predominance, which is fkqo-ca-nivnwayw severity Continues to have persistent chronic pain [...] OA with medial compartment predominance, which is wgyh-fp-hxesbuog severity Continues to have persistent chronic pain [...] She did obtain bilateral knee x-rays at [facility] after last visit, although we did not receive these. Will track down these results. She defers a Kenalog intra-articular left knee injection at this time. Could reconsider this symptoms worsened. Assessment & Plan (07/30/2021 3:08 PM ROVING INSPECTOR): Has had some persistent chronic pain in the bilateral knees (L>R) (prior R TKA). Previous went to PT and continues at home PT exercises. Will obtain updated imaging. Could consider L knee ultrasound-guided Kenalog injection depending on x-ray findings. Assessment & Plan (07/07/2019 2:52 PM ROVING INSPECTOR): Pain in the bilateral knees does persist some degree which is exacerbated with activity. History of right TKA, as well as OA in the bilateral knees. Could not tolerate prior injections. Continue at home PT exercises. Symptoms remain stable. Discussed return to PT, which patient defers at this time. Could reconsider if symptoms worsen. Assessment & Plan (05/24/2019 2:44 PM ROVING INSPECTOR): Pain in the bilateral knees does persist [...] 10/05/2018 Assessment & Plan (05/24/2019 2:42 PM ROVING INSPECTOR): Hx of recent URTI, as above. Completed [...] 06/30/2018 Assessment & Plan (06/30/2018 3:15 PM ROVING INSPECTOR): Patient notes worsening pain symptoms in the [...] (06/01/2018): Added automatically from request for surgery [id number] Atherosclerotic heart diseas e of [place] coronary artery without angina pectoris 06/02/2017 Chronic migraine without aur a without status migrainosus, not intractable 05/04/2017 Left foot drop 05/04/2017 Assessment & Plan (05/26/2017 3:18 PM ROVING INSPECTOR): Seeing neurologist and has had ncts/emg as [...] today. Assessment & Plan (06/15/2024 3:12 PM ROVING INSPECTOR): TB neg 12/2019 Stopped Plaquenil in the [...] cessation Assessment & Plan (08/18/2023 3:52 PM ROVING INSPECTOR): TB neg 12/2019 Stopped Plaquenil in the [...] cessation Assessment & Plan (08/14/2022 3:16 PM ROVING INSPECTOR): TB neg 12/2019 Stopped Plaquenil in the [...] infusions Assessment & Plan (07/30/2021 3:06 PM ROVING INSPECTOR): TB neg 12/2019 Stopped Plaquenil in the [...] today Assessment & Plan (07/29/2020 4:36 PM ROVING INSPECTOR): TB neg 12/2019 Stopped Plaquenil in the [...] infusions Assessment & Plan (07/07/2019 2:53 PM ROVING INSPECTOR): TB neg 10/2018 Stopped Plaquenil in the past due to recommendations by Ophthalmology, although eventually was noted that she could resume HCQ therapy. Continue to follow with opthalmology. On CellCept 1000 mg BID, hcq 200 BID, Benlysta infusions Assessment & Plan (05/24/2019 2:43 PM ROVING INSPECTOR): TB neg 10/2018 Stopped Plaquenil in the [...] infusions Assessment & Plan (08/16/2018 4:03 PM ROVING INSPECTOR): TB neg 10/2017 Stopped Plaquenil in the past due to recommendations by Ophthalmology, although recently was noted that she could resume HCQ therapy. Continue to follow with opthalmology. On CellCept 1000 mg b.i.d., Benlysta infusions Assessment & Plan (06/30/2018 3:13 PM ROVING INSPECTOR): TB neg 10/2017 Stopped Plaquenil due to [...] medication. Assessment & Plan (07/23/2017 10:43 AM ROVING INSPECTOR): Hepatitis neg 8/13. Quant gold neg 17. Assessment & Plan (05/26/2017 1:01 PM ROVING INSPECTOR): Hepatitis neg 8/13. Quant gold neg 417. Assessment & Plan (03/30/2017 4:26 PM CDT): [...] (10/08/2016): Low back pain Assessment & Plan (02/27/2025 2:57 PM CDT): Currently on Soma 350 mg t.i.d. p.r.n. along with hydrocodone per PCP. Unable to tolerate NSAIDs. Had seen pain management in the past and received epidural injections. She has deferred physical therapy. Have previously recommended follow up with the pain management for repeat injections, if symptoms worsen. Will try holding Soma at this time. Assessment & Plan (04/29/2023 3:41 PM CDT): [...] persist. Assessment & Plan (07/29/2020 4:36 PM ROVING INSPECTOR): Remains on Soma 350 mg t.i.d. p.r.n. [...] NSAIDs. Assessment & Plan (08/16/2018 2:27 PM ROVING INSPECTOR): Fairly well controlled with Soma 350 mg t.i.d. P.r.n.. Continue hydrocodone per PCP. Cannot tolerate NSAIDs. Assessment & Plan (06/30/2018 4:18 PM ROVING INSPECTOR): Lower back pain and stiffness continues to be a significant complaint for patient. Will continue Soma 350 mg t.i.d. P.r.n.. Continue hydrocodone per pcp. Cannot tolerate nsaids. Chronic obstructive pulmonary disease 06/07/2015 Overview (10/08/2016): Chronic obstructive lung disease Assessment & Plan (09/20/2024 2:32 PM CDT): Discussed and encouraged smoking cessation. She does have plans to quit smoking. Assessment & Plan (06/15/2024 3:10 PM ROVING INSPECTOR): Discussed and encouraged smoking cessation. She does [...] labs prior to infusions. Assessment & Plan (02/27/2025 2:55 PM CDT): CDAI 23. Since last visit, has noted some chronic residual discomfort/symptoms in the hands, neck, and lower back. Symptoms have exacerbated slightly since discontinuation of hydroxychloroquine due to being overdue for eye exams. She did obtain eye exam after last visit in his now up-to-date. Has been avoiding Benlysta and reduced her CellCept to her current dose due to numerous respiratory infections requiring frequent antibiotics/steroids. Has chronic cough/shortness of breath attributed to see PT with no other recent systemic complaints. Scattered tender and swollen joints, as above. Will resume hydroxychloroquine 200 mg b.i.d. and continue CellCept 1000 mg b.i.d.. Have previously encourage smoking cessation. Continue routine eye exams. Routine labs today. Follow-up 3 months. Sooner if needed. Assessment & Plan (09/20/2024 2:31 PM CDT): [...] needed. Assessment & Plan (06/15/2024 3:10 PM ROVING INSPECTOR): CDAI 9. Overall, joints have remained fairly [...] risks. Assessment & Plan (08/18/2023 3:51 PM ROVING INSPECTOR): Adwoa was last seen 04/29/2023, as was [...] needed. Assessment & Plan (08/14/2022 3:16 PM ROVING INSPECTOR): CDAI 8. Last seen 03/2022, as was [...] needed. Assessment & Plan (07/30/2021 3:05 PM ROVING INSPECTOR): Denies significant peripheral joint complaints since last [...] needed. Assessment & Plan (07/29/2020 4:35 PM ROVING INSPECTOR): CDAI 8. Last Benlysta infusion 05/14/2020. Has [...] needed. Assessment & Plan (07/07/2019 2:51 PM ROVING INSPECTOR): CDAI 10. Overall, doing fairly well at [...] [place]. Assessment & Plan (05/24/2019 2:41 PM ROVING INSPECTOR): cdai 12. Patient presents for evaluation to [...] needed. Assessment & Plan (08/16/2018 2:26 PM ROVING INSPECTOR): Moderate CDAI. Overall, patient notes that joints [...] needed. Assessment & Plan (06/30/2018 3:17 PM ROVING INSPECTOR): High CDAI. Patient has noted worsening joint [...] today. Assessment & Plan (07/23/2017 12:02 PM ROVING INSPECTOR): Low disease activity with cellcept and benlysta. Off hcq due to recommendation from the ophthamologist. Can increase cellcept in the future if needed, but will con't with current regimen for now. Labs with infusions. F/u 3 mos, sooner if needed. Assessment & Plan (05/26/2017 3:20 PM ROVING INSPECTOR): High disease activity with hcq, cellcept and [...] Taking amitryptiline and lyrica. Assessment & Plan (02/27/2025 2:56 PM CDT): Remains overall stable on current treatment regimen. Unable to increase Lyrica to 225 mg b.i.d. due to renal dosing. Will continue Lyrica 150 mg b.i.d.. On Lexapro, so will avoid duloxetine. She was previously prescribed Soma 350 mg t.i.d. p.r.n., she typically only takes once in the evening to help sleep at night. At this time, she is willing to trial holding Soma. No significant benefit with Flexeril or Zanaflex in the past. Encourage routine exercise. Assessment & Plan (09/20/2024 2:33 PM CDT): [...] exercise. Assessment & Plan (06/15/2024 3:11 PM ROVING INSPECTOR): I continue to suspect this is contributing [...] exercise. Assessment & Plan (08/18/2023 3:52 PM ROVING INSPECTOR): I continue to suspect this is contributing [...] exercise. Assessment & Plan (08/14/2022 3:16 PM ROVING INSPECTOR): Suspect this is contributing to her chronic pain complaints. Will increase Lyrica to 225 mg b.i.d.. Encourage routine exercise. Assessment & Plan (03/10/2022 2:19 PM CDT): Stable. Continue Lyrica 150 mg b.i.d.. Encourage routine exercise. Assessment & Plan (12/04/2021 3:41 PM CDT): Stable. Continue Lyrica 150 mg b.i.d.. Encourage routine exercise. Assessment & Plan (07/30/2021 3:06 PM ROVING INSPECTOR): Stable. Continue Lyrica 150 mg b.i.d.. Encourage routine exercise. Assessment & Plan (01/21/2021 3:07 PM CDT): Stable. Continue Lyrica 150 mg b.i.d.. Encourage routine exercise. Assessment & Plan (10/16/2020 1:48 PM CDT): Stable. Continue Lyrica 150 mg b.i.d.. Encourage routine exercise. Assessment & Plan (07/29/2020 4:36 PM ROVING INSPECTOR): Suspect that this is contributing to some [...] exercise. Assessment & Plan (07/07/2019 2:52 PM ROVING INSPECTOR): Patient was off Lyrica for few weeks and subsequently restarted at 1:50 a.m. b.i.d. with onset of confusion, dizziness. Symptoms resolved after stopping the Lyrica. Will restart Lyrica at 75 mg once daily and titrate up slowly. Continue Elavil 25 mg q.h.s.. Encourage routine exercise. Assessment & Plan (05/24/2019 2:43 PM ROVING INSPECTOR): Stable. Continue lyrica 150 bid, elevil 25 [...] exercise. Assessment & Plan (08/16/2018 2:27 PM ROVING INSPECTOR): Stable. Continue Lyrica 150 mg b.i.d.. Discussed the importance of exercise. Assessment & Plan (06/30/2018 3:11 PM ROVING INSPECTOR): Generalized pain and fatigue symptoms persists, although [...] treatment. Assessment & Plan (07/23/2017 10:43 AM ROVING INSPECTOR): con't with lyrica, amitriptyline, soma. Assessment & Plan (05/26/2017 1:01 PM ROVING INSPECTOR): con't with lyrica, amitriptyline, soma. Assessment & [...] Problem Noted Date Diagnosed Date Resolved Date Cataract, nuclear sclerotic, left eye 01/24/2025 03/21/2025 Nuclear sclerotic cataract of right eye 01/24/2025 02/28/2025 Fibrositis 02/28/2013 05/26/2017 Overview (10/07/2016): Fibromyalgia Encounters Date Type Department Care Team Description 03/21/2025 12:10 PM CDT Anesthesia Event [facility] [address] [place] [id number] Manoj Hwang MD Brake, Barbara E., NP 03/21/2025 11:30 AM CDT - 03/21/2025 12:30 PM CDT Surgery [facility] Operating [facility] ([facility]) [address] [place] [id number] Wolfgang Mata MD EXTRACTION CATARACT WITH LENS IMPLANT. [34736 (CPT )] 03/21/2025 9:15 AM CDT - 03/21/2025 2:00 PM CDT Hospital Encounter [facility] Operating [facility] ([facility]) [address] [place] [id number] Wolfgang Mata MD Discharge Disposition: Discharge to home or self care 03/15/2025 1:15 PM CDT Procedure visit [facility] [address] [place] [address] [address] [address] Anson Frias MD Chronic migraine without aura without status migrainosus, not intractable from Last 3 Months Immunizations Immunization Administration [...] KNEE ARTHROSCOPY Left Arthroscopy knee BLEPHAROPTOSIS REPAIR Bilateral eyelid OTHER SURGICAL HISTORY 04/16/2016 Left Repair of thumb nerve KNEE ARTHROPLASTY 07/05/2015 - 07/04/2016 Right knee osteoarthritis: total knee arthroplasty CATARACT EXTRACTION EXTRACAPSULAR W/ INTRAOCULAR LENS IMPLANTATION 02/28/2025 Eye/Right Procedure: EXTRACTION CATARACT WITH LENS IMPLANT.; Surgeon: Wolfgang Mata MD; Location: [facility] CAM OR POD 4; Service: Ophthalmology; Laterality: Right; Medical devices from this surgery are in the Medical Devices section. CATARACT EXTRACTION EXTRACAPSULAR W/ INTRAOCULAR LENS IMPLANTATION 03/21/2025 Eye/Left Procedure: EXTRACTION CATARACT WITH LENS IMPLANT.; Surgeon: Wolfgang Mata MD; Location: [facility] CAM OR POD 4; Service: Ophthalmology; Laterality: Left; Medical devices from this surgery are in the Medical Devices section. Medical History Medical History Date Comments Hx [...] Date Smoking Tobacco: Every Day Cigarettes 1.5 46.9 Started: 1979 Smokeless Tobacco: Never Tobacco Cessation:Ready to Q uit: Not Asked; Counseling Given: Not Answered Comments:Smoking History Packs/day: 2 Packs Alcohol Use Standard Drinks/Week Comments Yes 0 (1 standard drink = 0.6 oz pur e alcohol) rare AUDIT-C Answer Date Recorded Q1: How often do you have a drink containing alc ohol? Monthly or less 03/21/2025 Q2: How many drinks containi ng alcohol do you have on a typical day when you are drinking? 1 or 2 03/21/2025 Q3: How often do you have si x or more drinks on one occasion? Never 03/21/2025 Personal Safety Answer Date Recorded Have you ever been in or are you currently in a harmful physical or emotional relationship or is someone making you feel afraid or unsafe? Denies 03/21/2025 Comments No Sex and Gender Information Value Date Recorded Sex Assigned at Not on file Legal Sex Female 3:38 AM ROVING INSPECTOR Gender Identity Female 01/17/2019 7:57 AM CDT Sexual Orientation Not on file Occupation Industry Job Start Date Job End Date DISABLED Not on file Not on file Not on file Last Filed Vital Signs Vital Sign Reading Time Taken Comments Blood Pressure 120/69 03/21/2025 1:40 PM CDT Pulse 64 03/21/2025 1:45 PM CDT Temperature 36.6 C (97.9 F) 03/21/2025 1:55 PM CDT Respiratory Rate 18 03/21/2025 1:45 PM CDT Oxygen Saturation 98% 03/21/2025 1:45 PM CDT Inhaled Oxygen Concentration - - Weight 108 kg (238 lb) 03/21/2025 9:55 AM CDT Height 154.9 cm (5' 1) 03/21/2025 9:55 AM CDT Body Mass Index 44.97 03/21/2025 9:55 AM CDT Plan of Treatment Health Maintenance [...] risk series) 12/18/2020 11/20/2020, 10/30/2020 Influenza Vaccine (#1) 2025 , 04/01/2020, 03/30/2017, Additional history exists Medical Devices Implanted Type Area Sales And Marketing Director Device Identifier Shelf Expiration Date Model / Serial / Lot [employer] Lens Iol Tecnis Smplcty 1-Pc Clr [place] 26.5 Diopter [id number] - [id number] - [id number] Implanted:Qty: 1 on 02/28/2025 by Wolfgang Mata MD at [facility] Lens Right: Eye [employer] [id number] 07/20/2027 [id number] / [id number] / 0 [employer] Lens Iol Monofocal Anterior Biconvex Optic Single Piece [employer]ecnis Simplicity 6.0x13.0 +25.0d Hydrophobic Acrylic [id number] - [id number] - [id number] Implanted:Qty: 1 on 03/21/2025 by Wolfgang Mata MD at [facility] Lens Left: Eye [employer] [id number] 05/22/2027 [id number] / [id number] / 0 Procedures Procedure Name Priority Date/Time Associated Diagnosis Comments RI XCAPSL CTRC RMVL INSJ IO LENS PROSTH W/O ECP 03/21/2025 12:09 PM CDT Cataract, nuclear sclerotic, left eye Case Notes 02/27 - Per Anni, case in depot for edit. NB from Last 3 Months Insurance T MEDICARE T MEDICARE AET MEDICARE AETNA MEDICARE Advance Directives For more information, please contact: [phone] * Full Code (Latest Code Status on File) Date Activated Date Inactivated Comments 03/21/2025 9:37 AM 03/21/2025 6:05 PM * Full Code Date Activated Date Inactivated Comments 02/28/2025 6:50 AM 02/28/2025 2:05 PM Care Teams Job Site Supervisor Relationship Specialty Start Date End Date Ananth Krishnan MD PCP - General 10/02/16 Lobito Connolly MD Nephrology 05/31/17 Barbara Grover MD Cardiology 01/19/18 Hetal Mclean PA Physician Health Education Director Dermatology 01/19/18 Rell Smith MD [address] [place] [address] [place] [address] Neurology 01/19/18 Jeffry Tay MD [address] [place] [address] Consulting Physician Rheumatology 08/18/23
--- OUTSIDE RECORDS SUMMARY | 2025-06-06 17:09 | XMS_ITS | Clinical Summary ---
Author Organization [facility] Address [address] [place] [address] Care Team Providers Care Zanjero Name Role Phone Ananth Krishnan MD Primary Care Provider [phone] Source Comments [facility],non-owned Affiliates and Associated Physician Practices is amultiple site organization consisting of ambulatory clinics and hospital sitesin [place], [place] and [place]. This disclosure is being madepursuant to the Care Everywhere program and may not contain all information available regarding this patient. Last updated 18.[facility] Social History Tobacco Use Types Packs/Day Years Used Date Smoking Tobacco: Never Assessed Comments Unknown Sex and Gender Information Value Date Recorded Sex Assigned at Not on file Legal Sex Female 12:08 PM CDT Gender Identity Not on file Sexual Orientation [...] 12:31 PM CDT Height 162.6 cm (5' 4) 03/27/2013 12:31 PM CDT Body Mass Index [...] SCREENING 1964 LIPID TESTING 1964 MAMMOGRAM 1964 HIV SCREENING 10/20/1979 HEPATITIS C SCREENING 10/15/1982 DTAP/TDAP/TD VACCINES (1 - Tdap) 10/20/1983 PAP SMEAR 1985 Cervical Cancer Screening 1994 PAP with HPV 1994 PNEUMOCOCCAL VACCINE 50+ (1 of 1 - PCV) 2014 ZOSTER VACCINE (1 of 2) 2014 DEPRESSION SCREENING 07/05/2024 COVID-19 VACCINE (1 - season) 2025 INFLUENZA VACCINE (#1) 2025 6, 05/06/2015, 04/16/2015, Additional history exists Respiratory Syncytial Virus (RSV) Vaccine Pt: or over 60 yrs (1 - 1-dose 75+ series) 10/20/2039 HEPATITIS B VACCINE Aged Out No longe r eligible based on patient's age to complete this topic HIB VACCINE Aged Out No longer eligi [...] on patient's age to complete this topic Insurance [place] AETNA AETNA Care Teams Zanjero Relationship Specialty Start Date End Date Ananth Krishnan MD [address] [place] [id number] PCP - General 04/01/22
--- OUTSIDE RECORDS SUMMARY | 2025-06-06 17:09 | XMS_ITS | Encounter Summary ---
Author Organization [facility] Address [address] [place] [address] Care Team Providers Care Substance Abuse Prevention Coordinator Name Role Phone Ric Manuel MD Primary Care Provider [phone] Ananth Krishnan MD Primary Care Provider [phone] Encounter Details Date Type Department Care Team (Late st Contact Info) Description 04/02/2020 Lab Requisition [facility] Derm[facility] Lab [address] [place] [address] Sabrina Castañeda [place] [address] [place] [address] Social History Tobacco Use Types Packs/Day Years [...] AM CDT) Case Report Dermatopathology Report Case: [id number] Authorizing Provider: Sabrina Castañeda MD Collected: 04/01/2020 12:00 AM Ordering Location: [facility] Lab Received: 04/02/2020 01:16 PM Pathologist: Chaim Beavers MD Specimens: A) - Skin, right cavum jessie B) - Skin, right elbow 0 12:55 PM CDT DERMATOPATHOLOGY LABORATORY Final Diagnosis Specimen A. SKIN, right cavum jessie: BENIGN VERRUCOUS KERATOSIS, INFLAMED (L82.1) (see microscopic description) Specimen B. 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 Jar 0. 0 12:55 PM CDT DERMATOPATHOLOGY LABORATORY Microscopic Description Specimen A. SKIN, [...] collagen is focally altered. 0 12:55 PM CDT DERMATOPATHOLOGY LABORATORY Disclaimer An external and internal positive and negative controls are appropriate for the histochemical, immunohistochemical and immunofluorescence stain(s) in this case (if any), except where stated explicitly. The performance characteristics of the stain(s) cited in this report were developed and its performance characteristic determined by the Dermatopathology Laboratory at [facility], directed by Dr. Stephen Beavers. These tests need not be, and therefore are not, approved by the [place] Food and Drug Administration. The tests are used for clinical purposes. Billing Codes Specimen Charges Stain Charges 97212 [id number] 1 1 0 12:55 PM CDT DERMATOPATHOLOGY LABORATORY Embedded Images 0 12:55 PM CDT DERMATOPATHOLOGY LABORATORY Pathology/Cytology TISSUE SPECIMEN FROM SKIN / Unknown 04/01/2020 04/02/2020 1:16 PM CDT Miscellaneous samples (specimen) TISSUE SPECIMEN FROM SKIN / Unknown 04/01/2020 04/02/2020 1:16 PM CDT Sabrina Castañeda MD LAB - PATHOLOGY/CYTOLOGY ORDERABLES Final Result DERMATOPATHOLOGY LABORATORY [facility] - Department of Dermatology [facility] Medicine [address] [place] [address], [address] [phone] documented in this encounter Visit Diagnoses Not on filedocumented in this encounter Care Teams Substance Abuse Prevention Coordinator Relationship Specialty Start Date End Date Ric Manuel MD [address] [place] [address] PCP - General 04/02/20 03/31/22 Ananth Krishnan MD [address] [place] [address] PCP - General 04/01/22 documented as of this encounter
--- OUTSIDE RECORDS SUMMARY | 2025-06-06 17:09 | XMS_ITS | Encounter Summary ---
Author Organization [facility] Address [address] [place] [address] Phone Care Team Providers Care Airline Station Agent Name Role Phone Ananth Krishnan MD Primary Care Provider [phone] Jaciel PIERSON MD, John J. 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 Gender Identity Female 01/17/2019 7:57 AM CDT [...] on filedocumented in this encounter Care Teams Airline Station Agent Relationship Specialty Start Date End Date Ananth Krishnan MD PCP - General 10/02/16 Ye Grissom III, MD [address] [place] [address] Rheumatology 01/18/17 11/02/23 Lobito Connolly MD [address] [place] [address] Nephrology 05/31/17 Barbara Grover MD [address] [place] [address] Cardiology 01/19/18 Hetal Mclean PA [address] [place] [address] Physician Medical Practice Manager Dermatology 01/19/18 Rell Smith MD [address] [place] [address] [place] [address] Neurology 01/19/18 Cornel Bernal MD [address] [facility] [address] [place] [address] Consulting Physician Rheumatology 02/03/23 11/02/23 Jeffry Tay MD [address] [place] [address] Consulting Physician Rheumatology 08/18/23 documented as of this encounter
== END 2025-06-06 16:19 | disposition home or self-care (01) ==
PROVIDERS: PCP Emergency Medicine; Visit Provider Emergency Medicine
DX: Z12.2 Encounter for screening for malignant neoplasm of respiratory organs (principal); Z87.891 Personal history of nicotine dependence
CPT/HCPCS: 71271